=== PATIENT | female | born 1960 | race Caucasian/White ===

== ENCOUNTER 2024-05-25 13:10 | Outpatient (CLI) | payer MEDICARE, SELFPAY ==
--- NOTE | 2024-05-25 14:15 | NEURO_ITS ---
Impression: # Complains of numbness of left hand with nocturnal paresthesia. # Moderate left Carpal Tunnel Syndrome. # No ulnar neuropathy. # Mildly abnormal needle/EMG exam in left APB. Nerve Conduction Studies Anti Sensory Summary Table Stim Site NR Peak (ms) P-T Amp (?V) Site1 Site2 Delta-P (ms) Dist (cm) Elias (m/s) Left Median Anti Sensory (2-3nd Digit) Wrist 5.3 18.1 Wrist 2-3nd Digit 5.3 14.0 26 Wrist 5.6 12.5 Wrist 2-3nd Digit 5.3 14.0 26 Left Radial Anti Sensory (Base 1st Digit) Wrist 1.9 40.3 Wrist Base 1st Digit 1.9 0.0 Left Ulnar Anti Sensory (5th Digit) Wrist 2.6 55.6 Wrist 5th Digit 2.6 14.0 54 Motor Summary Table Stim Site NR Onset (ms) O-P Amp (mV) Site1 Site2 Delta-0 (ms) Dist (cm) Elias (m/s) Left Median Motor (Abd Poll Brev) Wrist 5.7 2.4 Elbow Wrist 4.8 27.0 56 Elbow 10.5 2.3 Left Ulnar Motor (Abd Dig Minimi) Wrist 2.6 5.9 A Elbow Wrist 5.2 29.0 56 A Elbow 7.8 4.6 F Wave Studies NR F-Lat (ms) L-R F-Lat (ms) Left Median (Mrkrs) (Abd Poll Brev) 28.69 Left Ulnar (Mrkrs) (Abd Dig Min) 29.16 EMG Side Muscle Nerve Root Ins Act Fibs Amp Dur Recrt Comment Left 1stDorInt Ulnar C8-T1 Nml Nml Nml Nml Nml Left Ext Indicis Radial (Post Int) C7-8 Nml Nml Nml Nml Nml Left Ext Digitorum Radial (Post Int) C7-8 Nml Nml Nml Nml Nml Left BrachioRad Radial C5-6 Nml Nml Nml Nml Nml Left PronatorTeres Median C6-7 Nml Nml Nml Nml Nml Left Abd Poll Brev Median C8-T1 Nml Nml Incr >12ms +2 Left ABD Dig Min Ulnar C8-T1 Nml Nml Nml Nml Nml MTDD
== END 2024-05-25 13:11 | disposition home or self-care (01) ==
LOC: ANHNEURO 13:12
PROVIDERS: PCP Nurse Practitioner Family; Visit Provider Physician Assistant Surgical
DX: G56.02 Carpal tunnel syndrome, left upper limb (principal); G56.22 Lesion of ulnar nerve, left upper limb
CPT/HCPCS: 95886; 95909

== ENCOUNTER 2025-05-19 15:25 | Outpatient (CLI) | payer MEDICARE, SELFPAY ==
--- NOTE | ~2025-05-19 | MM_ITS ---
EXAMINATION: MM screening oni BI w ed HISTORY: Screening mammogram TECHNIQUE: Craniocaudal and mediolateral oblique 3-D tomosynthesis images were obtained and synthetic 2-D images were generated. CAD analysis was submitted and interpreted. COMPARISON: No prior mammogram is available for comparison at this institution. BREAST PARENCHYMAL COMPOSITION:Dense: The breasts are heterogeneously dense, which may obscure small masses. FINDINGS: No suspicious mass, calcification, or architectural distortion are identified in either herlinda ast to suggest malignancy. There has been no suspicious interval change. IMPRESSION: No mammographic evidence of malignancy. Recommend routine screening mammography in one year. BI-RADS Category 1: Negative Reviewed, dictated and finalized at location .
--- OUTSIDE RECORDS SUMMARY | 2025-05-19 15:28 | XMS_ITS | Continuity of Care Document ---
Author Organization Located within [facility] Address [address] [place] [address] [place] [address] Phone Care Team Providers Care Nanny Babysitter Name Role Phone Cooper Burns Unavailable Unavailable Procedures Procedure Date Visual Field Examination(s) Eye Exam, New Patient Advance Directives Directive Yes / No Effective Date File Name No Information Encounters Encounter Description Practice Location Reason(s) For Visit Diagnoses Date Provider Providers Copied on Encounter [facility], [address] [place] [address] [address], [place], [place], [id number], tel:[phone] [facility] No Information 8 Katy Gamboa. [address] [place] [address], [facility], . tel:[phone] Referring Provider: Cooper lee, [address] [place] [address], [facility]. tel:[phone] [facility], [address] [place] [address] [address], [place], [place], [id number], tel:[phone] [facility] No Information 2200 8 Katy Cooper. [address] [place] [address], [facility], . tel:[phone] Family History Family Member Type Diagnosis Age At Onset No Information Payers Payer name Insurance type Covered democrat ID Authoriza tion(s) No Information Social History Type Description Quantity Date Captured Comments Sex Female Smoking Status No Information Chief Complaint And Reason For Visit No Information Reason For Referral Reason For Referral No Information History Of Present Illness Encounter Date Complaint History Of Prese nt Illness No Information Functional Status Date Functional Assessmen t No Information Instructions Date Instruction Additional Infor mation No Information Assessments Type Assessment Date No Information Patient Care Teams Name Effective Dates (start - stop) Status Members No Information
--- OUTSIDE RECORDS SUMMARY | 2025-05-19 15:28 | XMS_ITS | Clinical Summary ---
Author Organization [facility] Address [address] [place] [address] Care Team Providers Care Soldering Inspector Name Role Phone Rocio Doss MD Primary Care Provide r Allergies Active Allergy Reactions Criticality Noted Date Comments Erythromycin Ethylsuccinate Diarrhea Low 08/27/2021 Nsaids (Non-Steroidal Anti-Inflammatory Drug) Diarrhea,Other (See comments),Stomach upset Low Reaction: ABD CRAMPING, DIARRHEA, Sulfa (Sulfonamide Antibiotics) Diarrhea,Rash,Nause a only,Vomiting Medium 11/20/2010 Medications gabapentin (NEURONTIN) 300 mg capsule Take 2 capsules (600 mg total) by mouth 2 (two) times a day 5 8 Active potassium chloride ER (KLOR-CON) 10 mEq CR tabletIndicatio ns:hypokalemia prevention Take 1 tablet/capsule (10 mEq total) by mouth every morning Active metoprolol XL (TOPROL-XL) 100 mg 24 hr tabletIndicatio ns:coronary artery disease,hyperte nsion Take 1 tablet (100 mg total) by mouth 2 (two) times a day 3 8 Active ferrous sulfate 325 mg (65 mg of elemental iron) tablet Take 1 tablet (325 mg total) by mouth daily with breakfast 1 Active nitroglycerin (NITROSTAT) 0.4 mg SL tablet DISSOLVE 1 TABLET UNDER THE TONGUE EVERY 5 MINUTES FOR A TOTAL OF 3 DOSES NEEDED FOR CHEST PAIN. IF NO RELIEF AFTER THIRD DOSE GO TO ER 1 Active rosuvastatin (CRESTOR) 40 mg tabletIndicatio ns:hyperlipidem ia Take 1 tablet (40 mg total) by mouth nightly 0 Active multivit rsrdgrbd-httm-L A-calcium (THERA-M) 9 mg iron-400 mcg tabletIndicatio ns:Vitamin Deficiency Prevention Take 1 tablet by mouth daily 90 tablet 3 2 Active HYDROcodone-yenni taminophen (NORCO) 10-325 mg per tablet TAKE 1 TABLET BY MOUTH EVERY 4-6 HOURS FOR 30 DAYS 2 Active cyanocobalamin (Vitamin B-12) 1,000 mcg tablet Take 1 tablet (1,000 mcg total) by mouth daily 2 Active escitalopram (LEXAPRO) 20 mg tablet 2 Active Active Problems Problem Noted Date Diagnosed Date Gastric bypass status for obesity 07/18/2022 Fear of injections and transfusions 03/12/2022 Sacroiliitis, not elsewhere classified 2 Enthesopathy of ankle and tarsus 11/08/2021 Hyperglycemia 11/08/2021 Incontinence 11/08/2021 Primary localized osteoarthrosis of shoulder reg ion 11/08/2021 Radial styloid tenosynovitis 11/08/2021 Tachycardia 11/08/2021 Sicca syndrome 10/22/2021 HLA B27 (HLA B27 positive) 10/22/2021 Abnormal result of other cardiovascular function study 09/14/2021 Diabetes mellitus, type 2 08/27/2021 Iron deficiency 08/27/2021 Obstructive sleep apnea syndrome 08/27/2021 Palpitations 08/27/2021 Shortness of breath 08/27/2021 Vitamin D deficiency 08/27/2021 Chest discomfort 08/27/2021 Hypokalemia 08/27/2021 Rheumatoid arthritis 08/27/2021 Herpes simplex virus (HSV) infection 10/02/2017 Chronic neck pain 04/03/2017 Fibromyalgia 09/09/2014 Generalized osteoarthritis 09/08/2014 Spinal stenosis of cervical region 01/13/2014 High risk medication use 10/27/2012 Degeneration of intervertebral disc of cervical region 03/27/2012 Hyperlipidemia 11/20/2010 Hypertension 11/20/2010 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 We have given her prior trials of immunosuppressants in the form TNF inhibitor which gave her no benefit in terms of pain relief. I reviewed when she should hold methotrexate and the samaritan of fever or significant infection. She needs monitoring laboratory tests today of inflammatory markers, CBC and CMP. Osteoarthritis of knee 11/20/2010 Overview (03/12/2022): HLA B27 positive but only peripheral arthritis felt to have any inflammatory component Last Assessment & Plan: This patient has HLA B27 positivity but her spinal disease has been entirely degenerative in nature. We have given her prior trials of immunosuppressants in the form TNF inhibitor which gave her no benefit in terms of pain relief. I reviewed when she should hold methotrexate and the samaritan of fever or significant infection. She needs monitoring laboratory tests today of inflammatory markers, CBC and CMP. Resolved Problems Problem Noted Date Diagnosed Date Resolved Date Morbid (severe) obesity due to excess calories 04/16/2022 07/18/2022 Ankylosing spondylitis 08/27/202106/07 Morbid obesity (CMS/HCC) 02/21/202111/2021 Immunizations Immunization Administration Dates Next Due Influenza, Quadrivalent, Spl it, Preservative Free, Intramuscular 10/04/2021 Moderna SARS-CoV-2 Monovalent Vaccination (12+ Y RS) 02/08/2021 Surgical History Surgery Date Site/Laterality Comments CARPAL TUNNEL RELEASE Right TOTAL ABDOMINAL HYSTERECTOMY REDUCTION MAMMAPLASTY CHOLECYSTECTOMY APPENDECTOMY SPINAL FUSION TOTAL KNEE ARTHROPLASTY HAND SURGERY JOINT REPLACEMENT BREAST LUMPECTOMY GASTRIC BYPASS 04/16/2022 Medical History Medical History Date Comments Morbid obesity (HCC) Arthritis Depression Hypertension Sleep apnea Fibromyalgia, primary Incontinence PONV (postoperative nausea and vomiting) Motion sickness Covid 11/2021 Tachycardia CAD (coronary artery disease) Family History Medical History Relation Name Comments Coronary artery disease Father Rheum arthritis Father Heart attack Maternal Grandmother Heart disease Maternal Grandmother Hypertension Maternal Grandmother Pacemaker Maternal Grandmother Transient ischemic attack Maternal Grandmother Arthritis Mother Lupus Sister Relation Name Status Comments Father Maternal Grandmother Mother Sister Social History Tobacco Use Types Packs/Day Years Used Date Smoking Tobacco: Never Smokeless Tobacco: Never AUDIT-C Answer Date Recorded Q1: How often do you have a drink containing alcohol? Never 08/11/2023 Q2: How many drinks containi ng alcohol do you have on a typical day when you are drinking? Patient does not drink Q3: How often do you have si x or more drinks on one occasion? Never 08/11/2023 Comments No Sex and Gender Information Value Date Recorded Sex Assigned at Not on file Legal Sex Female 7:34 PM SAL[employer] [place] Gender Identity Female 07/02/2018 3:58 PM CDT Sexual Orientation Straight 02/19/2021 7: 51 AM CDT Obstetrics History Last Filed Vital Signs Vital Sign Reading Time Taken Comments Blood Pressure 160/78 08/11/2023 12:05 PM CDT Pulse 53 08/11/2023 12:05 PM CDT Temperature 36.7 C (98.1 F) 08/11/2023 12:05 PM CDT Respiratory Rate 18 08/11/2023 12:05 PM CDT Oxygen Saturation 99% 08/11/2023 12:05 PM CDT Inhaled Oxygen Concentration - - Weight 59.1 kg (130 lb 6.4 oz) 08/11/2023 12:05 PM CDT Height 153 cm (5' 0.24) 08/11/2023 12:05 PM CDT Body Mass Index 25.27 08/11/2023 12:05 PM CDT Plan of Treatment Health Maintenance Due Date Last Done Comments Albumin Creatinine Ratio, Urine 1961 Breast Cancer Screening-Mammogram 1961 Colon Cancer Screening-Colonoscopy 1961 Depression Screening 1961 Dilated Eye Exam 1961 Foot Exam 1961 DTaP/Tdap/Td Vaccine (1 - Tdap) 01/17/1972 Hepatitis B Screening 1979 Regular Well Visit/Exam 18-64 1979 Zoster Vaccine (1 of 2) 2011 Pneumococcal vaccine <65 (2 of 2 - PCV) 08/27/2020 08/27/2019 Hemoglobin A1C 11/08/2023 05/09/2023, 12/0 04/2021, 07/28/2017 Lipid Panel 05/09/2024 05/09/2023, 12/0 04/2021, 08/25/2017 Covid-19 Vaccine (4 - 2023-2 5 season) 2024 11/22/2021, 03/13/2021, 02/08/2021 eGFR 02/18/2025 02/19/2024, 08/0 06/2023, 05/09/2023, Additional history exists Influenza Vaccine (Season Ended) 2025 09/26/2022, 10/04/2021, 08/27/2019, Additional history exists Hepatitis C Screening Completed 02/19/2024, 013 Procedures Procedure Name Priority Date/Time Associated Diagnosis Comments HEPATITIS PANEL, ACUTE Routine 02/19/2024 10:25 AM CDT EGFR Routine 02/19/2024 10:25 AM CDT HEMOGLOBIN A1C Routine 05/09/2023 2:55 PM CDT Intestinal malabsorption, unspecified type Abnormal finding of blood chemistry, unspecified LIPID PANEL Routine 05/09/2023 2:55 PM CDT Intestinal malabsorption, unspecified type from Last 3 Months or Most Recently Relevant to Health Maintenance Results * eGFR (02/19/2024 10:25 AM CDT) eGFR >90 >=60 mL/min/1. 73 m2 Comment: Interpretive Data Reference Interval Normal >/= 90 mL/min/1.73m2 Mildly decreased* 60 - 89 mL/min/1.73m2 Mildly to moderately decreased 45 - 59 mL/min/1.73m2 Moderately to severely decreased 30 - 44 mL/min/1.73m2 Severely decreased 15 - 29 mL/min/1.73m2 Kidney Failure < 15 mL/min/1.73m2 *Relative to young adult level Estimated glomerular filtration rate is determined by the 2020 CKD-EPI equation recommended by the National Kidney Foundation (A Unifying Approach to GFR Estimation: Recommendations of the NKF-ASK Task Force on Reassessing the Inclusion of Race in Diagnosing Kidney Disease, JASN 2020). The CKD-EPI equation should not be used for patients with unstable renal function and has not been validated in children and those over 70. Current interpretive data was last reviewed 2021. Blood 02/19/2024 10:2 5 AM CDT 02/19/2024 10:49 AM CDT Duyen Ackerman NP LAB BLOOD ORDERABLES Final R esult [facility] [address] Department of Laboratories [place] [address] * Hepatitis panel, acute Blood (02/19/2024 10:25 AM CDT) Hep A IgM Nonreactive Nonreactive Comment: Interpretive Data: If Hep A IgM Ab is reported as Equivocal, a new sample should be drawn in two weeks for testing. Current interpretive data was last revised on 20. Hep B core IgM Nonreactive Nonreactive [facility] Comment: Interpretive Data If HepB Core IgM Ab is reported as Equivocal, a new sample should be drawn in two weeks for testing. Current interpretive data was last revised on 20. Hep C Ab Nonreactive Nonreactive [facility] Comment: Interpretive Data Nonreactive: Antibodies to HCV not detected. Does NOT exclude the possibility of recent exposure to HCV. Equivocal: Equivocal for HCV antibodies. Supplemental molecular testing will be automatically performed to determine infection status in accordance with current CDC screening recommendations. Reactive: Positive for HCV antibodies. This may represent current or past HCV infection. Supplemental molecular testing will be automatically performed to determine current infection status in accordance with current CDC screening recommendations. Interpretive data was last revised on 2020. HepBsAg Nonreactive Nonreactive [facility] Blood 02/19/2024 10:2 5 AM CDT 02/19/2024 11:26 AM CDT us Duyen Tyron SANDSTONE INSPECTOR REPAIRER LAB MICROBIOLOGY - GENERAL O RDERABLES Final Result Performing Organization Address [facility] Co de Phone Number [facility] [address] Department of [place] [address] * Hemoglobin A1c (05/09/2023 2:55 PM CDT) Hgb A1C 5.4 4.0 - 5.6 % ESTELA [facility]K Estimated Average Glucose 108 mg/dL ESTEL[facility] B[facility]K Comment: The ADA recommends reporting an estimated Average Glucose (eAG) with all Hemoglobin A1c results using the equation derived from a study of 507 normal and diabetic adults. Minority populations were underrepresented and children were not included. (Diabetes Care 31:2301-8977, 2008). The eAG is not equivalent to a fasting glucose. Blood 05/09/2023 2:55 PM CDT 05/09/2023 2:56 PM CDT Sabina Bejarano MD LAB BLOOD ORDERABLES Fi nal Result Performing Organization Address [facility] Co de Phone Number [facility] [address] Department of [place] [address] * (ABNORMAL) Lipid panel (05/09/2023 2:55 PM CDT) Pathologist [facility] Cholesterol 82 30 - 199 mg/dL ESTELA BECK Comment: Aure Norwood RN Interpretive Data Ages < or = 19 years Acceptable: <170 mg/dL Borderline high: 170-199 mg/dL High: >or= 200 mg/dL Ages > or = 20 years Desirable: <200 mg/dL Borderline high: 200-239 mg/dL High: >or= 240 mg/dL Literature References: 1. Expert Panel on Integrated Guidelines for Cardiovascular Health and Risk Reduction in Children and Adolescents. Pediatrics 2011;128:S213 2. NCEP Expert Panel. Circulation 2004;110:227 Current Interpretive Data was last revised on 2018. Triglycerides 46 <=149 mg/dL ESTEL[facility]K Comment: Aure Norwood RN Interpretive Data Ages < or = 9 years Acceptable: <75 mg/dL Borderline high: 75-99 mg/dL High: >or= 100 mg/dL Ages 10 to 20 years Acceptable: <90 mg/dL Borderline high: 90-129 mg/dL High: >or= 130 mg/dL Ages > or = 20 years Desirable: <150 mg/dL Borderline high: 150-199 mg/dL High: 200-499 mg/dL Very high: >or= 499 mg/dL Literature References: 1. Expert Panel on Integrated Guidelines for Cardiovascular Health and Risk Reduction in Children and Adolescents. Pediatrics 2011;128:S213 2. NCEP Expert Panel. Circulation 2004;110:227 Current Interpretive Data was last revised on 2018. HDL 36(L) >=40 mg/dL ESTELA BECK Comment: Aure Norwood RN Interpretive Data Ages < or = 19 years Acceptable: >45 mg/dL Borderline low: 40-45 mg/dL Low: <40 mg/dL Ages > or = 20 years Desirable: >or= 60 mg/dL Low: <40 mg/dL Literature References: 1. Expert Panel on Integrated Guidelines for Cardiovascular Health and Risk Reduction in Children and Adolescents. Pediatrics 2011;128:S213 2. NCEP Expert Panel. Circulation 2004;110:227 Current Interpretive Data was last revised on 2018. LDL, calculated 37 <=129 mg/dL ESTELA BECK Comment: Interpretive Data Ages < or = 19 years Acceptable: <110 mg/dL Borderline high: 110-129 mg/dL High: >or= 130 mg/dL Ages > or = 20 years Optimal: <100 mg/dL Near optimal: 100-129 mg/dL Borderline high: 130-159 mg/dL High: >160 mg/dL Literature References: 1. Expert Panel on Integrated Guidelines for Cardiovascular Health and Risk Reduction in Children and Adolescents. Pediatrics 2011;128:S213 2. NCEP Expert Panel. Circulation 2004;110:227 Current Interpretive Data was last revised on 2018. Non-HDL Cholesterol 46 mg/dL ESTELA BECK Comment: Interpretive Data Ages < or = 19 years Acceptable: <120 mg/dL Borderline high: 120-144 mg/dL High: >145 mg/dL Ages > or = 20 years When triglycerides are >200 mg/dL, Non-HDL cholesterol is a secondary target of therapy with treatment goals that are 30 mg/dL greater than the LDL cholesterol target. Literature References: 1. Expert Panel on Integrated Guidelines for Cardiovascular Health and Risk Reduction in Children and Adolescents. Pediatrics 2011;128:S213 2. NCEP Expert Panel. Circulation 2004;110:227 Current Interpretive Data was last revised on 2018. Chol/HDL ratio 2 [facility] Blood 05/09/2023 2:55 PM CDT 05/09/2023 2:56 PM CDT Sabina Bejarano MD LAB BLOOD ORDERABLES Ed ited Result - Final ESTELA ALEJANDROWCH [address] [facility]. Department of [place] [address] from Last 3 Months or Most Recently Relevant to Health Maintenance Insurance [facility] RE[facility] MEDICARE ADVANTAGE [facility] AD[facility] Advance Directives For more information, please contact: [phone] * Full Code (Latest Code Status on File) Date Activated Date Inactivated Comments 04/16/2022 3:11 PM 04/18/2022 3:54 PM Care Teams Soldering Inspector Relationship Specialty Start Date End Date Rocio Doss MD [address] [place] [address] PCP - General Internal Medicine 02/11/24
--- OUTSIDE RECORDS SUMMARY | 2025-05-19 15:28 | XMS_ITS | Clinical Summary ---
Author Organization [facility] Address [facility] [id number] [phone] Phone Care Team Providers Care Direct Support Worker Name Role Phone Unavailable Primary Care Provider Unavailabl e Encounters Date Type Department Care Team Description 04/06/2025 External Device Data [facility] ABSTRACTION Provider, Abstract 04/05/2025 External Device Data [facility] ABSTRACTION Provider, Abstract from Last 3 Months Social History Tobacco Use Types Packs/Day Years Used Date Smoking Tobacco: Never Assessed Comments Unknown Sex and Gender Information Value Date Recorded Sex Assigned at Not on file Legal Sex Female 10:19 PM CDT Gender Identity Not on file Sexual Orientation Not on file Plan of Treatment Health Maintenance Due Date Last Done Comments DIABETES ANNUAL FOOT EXAM 1979 DIABETES ANNUAL RETINAL EXAM 1979 DIABETES MICROALBUMIN ANNUAL SCREEN 1979 LDL CHOLESTEROL ANNUAL 1979 DTAP/TDAP/TD VACCINES (1 - Tdap) 01/17/1980 BREAST CANCER SCREENING 2001 COLORECTAL SCREENING 2006 Colorectal Cancer Screening 2006 FIT-DNA Q 3 years 2006 FIT/FOBT Q 1 year 2006 Flex Sig/CT Colonography Q 5 years 2006 RSV VACCINE (60+ or ) (1 - Risk 60-74 years 1-dose series) 2021 COVID-19 Vaccine (5 - 2023-2 5 season) 2024 10/14/2022, 11/22/2021, 03/13/2021, Additional history exists INFLUENZA VACCINE (#1) 2025 , 10/15/2023, 09/26/2022, Additional history exists DIABETES HBA1C Q 6 MONTHS 09/19/2025 03/19/2025, ZOSTER VACCINE Completed 10/07/2024, 06/19/2024 Insurance [facility] [id number] [address] [id number]
--- OUTSIDE RECORDS SUMMARY | 2025-05-19 15:28 | XMS_ITS | Clinical Summary ---
Author Organization [facility] Address [address] [place] [address] Care Team Providers Care Water Project Manager Name Role Phone Unavailable Primary Care Provider Unavailabl e Social History Tobacco Use Types Packs/Day Years Used Date Smoking Tobacco: Never Comments Unknown Sex and Gender Information Value Date Recorded Sex Assigned at Not on file Legal Sex Female 6:12 PM CDT Gender Identity Not on file Sexual Orientation Not on file Last Filed Vital Signs Vital Sign Reading Time Taken Comments Blood Pressure 136/80 06/21/2014 11:24 AM CDT Pulse 95 06/21/2014 11:24 AM CDT Temperature - - Respiratory Rate 20 06/21/2014 11:24 AM CDT Oxygen Saturation - - Inhaled Oxygen Concentration - - Weight 98.4 kg (217 lb) 06/21/2014 11:24 AM CDT Height 154.9 cm (5' 1) 06/21/2014 11:24 AM CDT Body Mass Index 41 06/21/2014 11:24 AM CDT Plan of Treatment Health Maintenance Due Date Last Done Comments Cervical Cancer Screening Pap Smear (Age 30 to 64) Every 3 Years 1961 Colorectal Cancer Screening Colonoscopy (10 Years) 1961 Annual Physical 01/17/1964 Hepatitis C 1979 DTaP, Tdap and Td Vaccines (1 - Tdap) 01/17/1980 Cervical Cancer Screening Pap with HPV Testing (Age 30 to 64) Every 5 Years 1991 Cervical Cancer Screening with HPV 1991 Mammogram Screening 2001 Pneumococcal Vaccine: 50+ Years (2 of 2 - PCV) 08/27/2020 08/27/2019 COVID-19 Vaccine ( season) 2024 10/14/2022, 11/22/2021, 03/13/2021, Additional history exists Zoster Vaccines (2 of 2) 08/14/2024 06/19/2024 RSV Immunization or 60+ Years Completed 06/19/2024 Meningococcal B Vaccine Aged Out No l onger eligible based on patient's age to complete this topic Meningococcal Vaccine Aged Out No caryl becca eligible based on patient's age to complete this topic RSV Immunizations Under 20 Months Aged Out No longer eligible based on patient's age to complete this topic
--- OUTSIDE RECORDS SUMMARY | 2025-05-19 15:28 | XMS_ITS | Referral Summary ---
Author Organization [facility] Address [address] [place] [address] Care Team Providers Care Ultrasound Applications Specialist Name Role Phone Rocio Doss MD Primary [...] total) by mouth nightly 0 Active multivit qqdgelct-mfbd-O A-calcium (THERA-M) 9 mg iron-400 mcg tabletIndicatio [...] when she should hold methotrexate and the caodaism of fever or significant infection. She needs [...] when she should hold methotrexate and the caodaism of fever or significant infection. She needs monitoring laboratory tests today of inflammatory markers, CBC and CMP. Resolved Problems Problem Noted Date Diagnosed Date Resolved Date Morbid (severe) obesity due to excess calories 04/16/2022 07/18/2022 Ankylosing spondylitis 08/27/202106/07 Morbid obesity (CMS/[facility]) 02/21/202111/2021 Immunizations Immunization Administration Dates Next Due Influenza, Quadrivalent, Spl it, Preservative Free, Intramuscular 10/04/2021 Moderna SARS-CoV-2 Monovalent Vaccination (12+ Y RS) 02/08/2021 Social History Tobacco Use Types Packs/Day Years [...] on file Legal Sex Female 7:34 PM INS[employer]ANCE [employer]OUNT [employer] Gender Identity Female 07/02/2018 3:58 PM CDT Sexual Orientation Straight 02/19/2021 7: 51 AM CDT Last Filed Vital Signs Vital Sign Reading [...] 08/11/2023 12:05 PM CDT Plan of Treatment Not on file Procedures Procedure Name Priority Date/Time Associated Diagnosis [...] 5 AM CDT 02/19/2024 10:49 AM CDT us Duyen Ackerman NP LAB BLOOD ORDERABLES Final R esult [facility] [address] [place] [address] * Hepatitis panel, acute Blood (02/19/2024 10:25 AM CDT) Hep A IgM Nonreactive Nonreactive Comment: Interpretive Data: If Hep A IgM Ab is reported as Equivocal, a new sample should be drawn in two weeks for testing. Current interpretive data was last revised on 20. Hep B core IgM Nonreactive Nonreactive [facility] Comment: Interpretive Data If HepB Core IgM Ab is reported as Equivocal, a new sample should be drawn in two weeks for testing. Current interpretive data was last revised on 20. Hep C Ab Nonreactive Nonreactive [facility] Comment: Interpretive Data Nonreactive: Antibodies [...] last revised on 2020. HepBsAg Nonreactive Nonreactive [facility] Blood 02/19/2024 10:2 5 AM CDT 02/19/2024 11:26 AM CDT us Duyen Ackerman NP LAB MICROBIOLOGY - GENERAL O RDERABLES Final Result Performing Organization Address [facility] Co de Phone Number [facility] [address] Department [place] [address] * Hemoglobin A1c (05/09/2023 2:55 PM CDT) Hgb A1C 5.4 4.0 - 5.6 % [facility] Estimated Average Glucose 108 mg/dL [facility] Comment: The ADA recommends reporting an estimated Average Glucose (eAG) with all Hemoglobin A1c results using the equation derived from a study of 507 normal and diabetic adults. Minority populations were underrepresented and children were not included. (Diabetes Care 31:7694-7611, 2008). The eAG is not equivalent to a fasting glucose. Blood 05/09/2023 2:55 PM CDT 05/09/2023 2:56 PM CDT us Sabina Bejarano MD LAB BLOOD ORDERABLES Fi nal Result Performing Organization Address City/[facility] Co de Phone Number [facility] [address] [facility] [place] [address] * (ABNORMAL) Lipid panel (05/09/2023 2:55 PM CDT) Cholesterol 82 30 - 199 mg/dL ESTELA [...] revised on 2018. Chol/HDL ratio 2 [facility]OLES[facility] Blood 05/09/2023 2:55 PM CDT 05/09/2023 2:56 PM CDT Sabina Bejarano MD LAB BLOOD ORDERABLES Ed ited Result - Final [facility] [id number] [facility]. Department [place] [address] from Last 3 Months or Most Recently Relevant to Health Maintenance Insurance [facility] HMO [facility] [employer] [place] [employer] Address: [address] [address] [place] [address] MEDICARE [employer] [place] [employer] Address: [address] [place] [phone] MEDICARE [employer] [place] [employer] Address: [address] [address] [place] [address] Advance Directives For more information, please contact: [phone] * Full Code (Latest Code Status on File) Date Activated Date Inactivated Comments 04/16/2022 3:11 PM 04/18/2022 3:54 PM Care Teams Ultrasound Applications Specialist Relationship Specialty Start Date End Date Rocio Doss MD [address] [address] PCP - General Internal Medicine 02/11/24
--- OUTSIDE RECORDS SUMMARY | 2025-05-19 15:28 | XMS_ITS | Clinical Summary ---
Author Organization [facility] Address [address] [place] [address] Care Team Providers Care Resource Technician Name Role Phone Jhonathan Doss MD Primary Care Provider Source Comments [facility],non-owned Affiliates and Associated Physician Practices is amultiple site organization consisting of ambulatory clinics and hospital sitesin [place], [place], [place] and [place]. This disclosure is being madepursuant to the Care Everywhere program and may not contain all information available regarding this patient. Last updated 18.[facility] Allergies Active Allergy Reactions Criticality Noted Date Comments Erythromycin Diarrhea,Unknown Low 08/27/2021 Nsaids Diarrhea,GI Discomfort,Other Medium 05/07/2024 Reaction: ABD CRAMPING, DIARRHEA, Sulfa Drugs Diarrhea,Itching,Charles sea and/or Vomiting,Rash,Vomiting Medium 11/20/2010 Sulfacetamide Unknown Low 08/27/2021 Medications * This document contains information received from the source organization and may not represent a complete record from that organization. * Be aware that medications may not be up to date on this document. Alwaysverify current medications with the patient. CPAP Use as directed Acti ve gabapentin (Neurontin) 300 MG capsule Take 2 (two) capsules by mouth 3 times daily Active levothyroxine (Synthroid) 75 MCG tablet Take 1 (one) tablet by mouth daily before breakfast Active olmesartan-hydr oCHLOROthiazide (Benicar HCT) 20-12.5 MG tablet Take 1 (one) tablet by mouth once daily 4 Active oxyCODONE, immediate release, (Roxicodone) 10 MG tablet Take 1 (one) tablet by mouth every 6 hours as needed for Pain 4 Active potassium chloride ER (Micro-K) 10 MEQ capsule Take 1 (one) capsule by mouth once daily 3 Active escitalopram (Lexapro) 20 MG tablet Take 1 (one) tablet by mouth once daily Active metoprolol succinate XL 24hr (Toprol XL) 100 MG tablet Take 1 (one) tablet by mouth 2 times daily 3 Active ezetimibe (Zetia) 10 MG tablet Take 1 (one) tablet by mouth once daily Active rosuvastatin (Crestor) 40 MG tablet Take 1 (one) tablet by mouth at bedtime Active meloxicam (Mobic) 7.5 MG tablet TAKE 1 TABLET BY MOUTH DAILY 30 tablet 2 5 Active aspirin (Aspirin) 81 MG chew tablet Take 1 (one) tablet by mouth once daily (chew and swallow) 5 Active ferrous sulfate 325 (65 FE) MG tablet Take 1 (one) tablet by mouth every 2 days 5 Active apixaban (Eliquis) 2.5 MG tablet Take 1 (one) tablet by mouth 2 times daily for 35 days 5 Active triamcinolone acetonide (Kenalog-10) injection Use 1 mL as instructed as directed 5 Active Bempedoic Acid-Ezetimibe (Nexlizet) 180-10 MG TABS Take 1 tablet by mouth as directed 4 Active Active Problems Problem Noted Date Diagnosed Date Degeneration of cervical intervertebral disc 07/2025 Degeneration of lumbar intervertebral disc 03/25 Lumbosacral spondylosis without myelopathy 03/25 Coronary artery disease with stable angina pecto ris 03/20/2025 Assessment & Plan (03/20/2025 9:47 AM CDT): - pt was not on ASA because of her previous GI symptoms. Discussed with pt and resumed ASA. Need to cont beta-pratik and ARB. She developed LFT elevation on statin, and currently on Zetia. HTN (hypertension) 03/20/2025 Assessment & Plan (03/20/2025 9:47 AM CDT): - will cont beta-pratik, ARB and HCTZ. Fall, initial encounter 03/19/2025 Assessment & Plan (03/20/2025 9:47 AM CDT): - denied LOC and just lost her balance per pt. Need PT/OT. Left hip pain 03/19/2025 Assessment & Plan (03/20/2025 9:47 AM CDT): - will cont pain management. Closed fracture of neck of left femur, initial e ncounter 03/19/2025 Assessment & Plan (03/20/2025 9:47 AM CDT): - appreciate ortho team's input and pt is going to OR today. Will await further input from them. 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 Lesion of nose 11/02/2023 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 11/02/2023 Carpal tunnel syndrome of left wrist 11/02/2023 Eczema 07/15/2023 Deformity of sternum 07/07/2023 Chronic sinusitis 02/17/2023 Arthralgia of both knees 02/17/2023 Memory impairment 02/09/2023 Morbid obesity 02/09/2023 Pain in joint of right shoulder 02/09/2023 Chronic pain disorder 02/09/2023 Obstructive sleep apnea of adult 02/09/2023 Intermittent palpitations 02/09/2023 Generalized anxiety disorder 02/09/2023 Cobalamin deficiency 02/09/2023 Chronic thoracic back pain 02/09/2023 Blood in urine 02/09/2023 Influenza due to influenza A virus 10/23/2022 Deviated nasal septum 10/15/2022 Fatigue 09/04/2022 Gastric bypass status for obesity 07/18/2022 Iron deficiency anemia 07/17/2022 Leukocytosis 06/03/2022 Elevated liver enzymes 06/03/2022 Elevation of levels of liver transaminase levels 06/03/2022 Type 2 diabetes mellitus without complication Anemia 03/05/2022 Tachycardia 11/08/2021 Cervical radiculopathy 11/08/2021 Lumbar radiculopathy 11/08/2021 Lumbosacral radiculopathy 11/08/2021 Radial styloid tenosynovitis 11/08/2021 Localized, primary osteoarthritis of shoulder re gion 11/08/2021 Incontinence 11/08/2021 Hyperglycemia 11/08/2021 Degeneration of lumbosacral intervertebral disc 11/08/2021 Enthesopathy of ankle and tarsus 11/08/2021 Primary localized osteoarthrosis of shoulder reg ion 11/08/2021 Sicca syndrome 10/22/2021 HLA B27 (HLA B27 positive) 10/22/2021 Abnormal result of other cardiovascular function study 09/14/2021 Vitamin D deficiency 08/27/2021 Rheumatoid arthritis 08/27/2021 Palpitations 08/27/2021 Obstructive sleep apnea syndrome 08/27/2021 Iron deficiency 08/27/2021 Hypokalemia 08/27/2021 Essential (primary) hypertension 08/27/2021 Ankylosing spondylitis 08/27/2021 Herpes simplex virus (HSV) infection 10/02/2017 Hypertensive disorder 06/16/2017 Sleep apnea 06/16/2017 Fibromyalgia 09/09/2014 Generalized osteoarthritis 09/08/2014 Spinal stenosis of cervical region 01/13/2014 High risk medication use 10/27/2012 Degeneration of intervertebral disc of cervical region 03/27/2012 Osteoarthritis of knee 11/20/2010 Overview (11/08/2021): HLA B27 positive but only peripheral arthritis [...] when she should hold methotrexate and the jew of fever or significant infection. She needs monitoring laboratory tests today of inflammatory markers, CBC and CMP. 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 Closed fracture of neck of left femur with routine healing, subsequent encounter (Primary Dx); Closed nondisplaced fracture of left calcaneus with routine healing, unspecified portion of calcaneus, subsequent encounter 05/05/2025 8:52 AM CDT - 05/05/2025 11:59 PM CDT Hospital Encounter [facility] DIAGNOSTIC RAD [facility] [address] [place] [address] Raquel Lozoya MD Discharge Disposition: Home or Self Care 05/05/2025 8:52 AM CDT - 05/05/2025 11:59 PM CDT Hospital Encounter [facility] DIAGNOSTIC RAD [facility] [address] [place] [address] Raquel Lozoya MD Discharge Disposition: Home or Self Care 05/05/2025 Travel 05/04/2025 Orders Only [facility] [address] [place] [phone] Raquel Lozoya MD Closed fracture of neck of left femur, initial encounter (HCC) ; Closed nondisplaced fracture of left calcaneus, unspecified portion of calcaneus, initial encounter 04/08/2025 8:45 AM CDT Office Visit [facility] - Orthopedics [address] [place] [phone] Julius Henriquez, Pain of left hip (Primary Dx); Fall, initial encounter; Closed fracture of neck of left femur, initial encounter ([facility]) 04/08/2025 Telephone [facility] - Orthopedics [address] [place] [phone] Julius Henriquez, Returned Call 04/08/2025 Travel 03/29/2025 Travel 03/20/2025 6:20 PM CDT Anesthesia Event [facility] [address] [place] [phone] Leandro Arango MD McCrary, Amanda N, MD 03/20/2025 4:15 PM CDT - 03/20/2025 7:29 PM CDT Surgery [facility] [address] [place] [phone] Julius Henriquez, INTRAMEDULLARY LEFT NAILING FEMUR 03/19/2025 1:33 AM CDT - 03/23/2025 10:52 PM CDT Hospital Encounter [facility] SHORT STAY UNIT [address] [place] [phone] Barbara Washington MD Gandhi, Avi, MD Bisesi, Dominic R, DO Ishiyama, Takaaki, MD Fritz, Adam, MD Fernelius, Joshua, MD Internal Medicine Discharge Disposition: Rehab:Inpatient 03/19/2025 Travel from Last 3 Months Immunizations Immunization Administration Dates Next Due FLU VACCINE QUAD IIV4 SPLIT 0.25 ML IM 08/28/2020 INFLUENZA VACCINE 09/17/2016 INFLUENZA VACCINE, QUADR. (F LUZONE; FLULAVAL; FLUARIX; AFLURIA QUADRIVALENT; 6MO+), 0.5 ML (IIV4) 10/15/2023,09/26/2022,10/04/2021,2018,08/28/2018,09/26/2016 INFLUENZA VACCINE, RECOM-LOPEZ, TRIV. (FLUBLOCK TRIVALENT; 18Y+) (RIV3) 06/19/2024 PNEUMOCOCCAL PPSV23 08/27/2019 RSV AREXVY 60YR+ 0.5ML 06/19/2024 Zoster Hzv Vacc Recombinant Inj Im 10/07/2024, Family History Medical History Relation Name Comments CAD (Coronary Artery Disease) Maternal Grandmother CAD (Coronary Artery Disease) Mother Cancer - Other Mother Relation Name Status Comments Maternal Grandmother Mother Social History Tobacco Use Types Packs/Day Years Used Date Smoking Tobacco: Never Smokeless Tobacco: Never Tobacco Cessation:Counseling Given: Not Answered AUDIT-C Answer Date Recorded Q1: How often do you have a drink containing alc ohol? Monthly or less 03/19/2025 Q2: How many drinks containi ng alcohol do you have on a typical day when you are drinking? 1 or 2 03/19/2025 Q3: How often do you have si x or more drinks on one occasion? Never 03/19/2025 Overall Financial Resource Strain (CARDIA) Answe r Date Recorded How hard is it for you to pa y for the very basics like food, housing, medical care, and heating? Not hard at all 03/19/2025 PHQ-2 Answer Date Recorded Patient Health Questionnaire-2 Score 4 05/02/2025 [facility] [place] [facility] Occupat ional Health - Occupational Stress Questionnaire Answer Date Recorded Do you feel stress - tense, restless, nervous, or anxious, or unable to sleep at night because your mind is troubled all the time - these days? Only a little 03/19/2025 Hunger Vital Sign Answer Date Recorded Within the past 12 months, y ou worried that your food would run out before you got the money to buy more. Never true 03/19/20 25 Within the past 12 months, t he food you bought just didn't last and you didn't have money to get more. Never true 03/19/2025 PRAPARE - Transportation Answer Date Re corded In the past 12 months, has l ack of transportation kept you from medical appointments or from getting medications? No 01/2025 In the past 12 months, has l ack of transportation kept you from meetings, work, or from getting things needed for daily living? No 03/19/2025 Housing Stability Vital Sign Answer Heriberto e Recorded In the last 12 months, was t here a time when you were not able to pay the mortgage or rent on time? No 03/19/2025 In the past 12 months, how m any times have you moved where you were living? 0 03/19/2025 At any time in the past 12 m [facility], were you homeless or living in a care home (including now)? 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 Gender Identity Female 05/27/2024 8:54 PM CDT Sexual Orientation Not on file Last Filed Vital Signs Vital Sign Reading Time Taken Comments Blood Pressure 107/52 03/23/2025 8:33 PM CDT Pulse 80 03/23/2025 8:33 PM CDT Temperature 37.2 C (99 F) 03/23/2025 8:33 PM CDT Respiratory Rate 18 03/23/2025 8:33 PM CDT Oxygen Saturation 100% 03/23/2025 8:33 PM CDT Inhaled Oxygen Concentration - - Weight 65.3 kg (144 lb) 05/05/2025 9:33 AM CDT Height 152.4 cm (5') 05/05/2025 9:33 AM CDT Body Mass Index 28.12 05/05/2025 9:33 AM CDT Plan of Treatment Upcoming Encounters Date Type Department Care Team (Late st Contact Info) Description 06/23/2025 9:30 AM CDT Office Visit [facility] - Orthopedics [address] [place] [address], [place] [phone] Raquel Lozoya MD [address] [place] [address] OF ORTHOPEDIC SURGERY [place], [place] [phone] 08/10/2025 8:30 AM CDT Office Visit [facility] - Rheumatology [address] [facility], [place] [phone] Talisha Elise MD [address] [facility] [place] [address] Health Maintenance Due Date Last Done Comments COLOGUARD (AGES 45-75) - COLON CA SCREENING 1961 COLON MONITORING 1961 COLONOSCOPY - COLON CA SCREENING 1961 CT COLONOGRAPHY - COLON CA SCREENING 1961 Colorectal Cancer Screening 1961 FIT - COLON CA SCREENING 1961 FLEX SIG - COLON CA SCREENING 1961 MAMMOGRAM 1961 HIV SCREENING 01/17/1976 HEPATITIS C SCREENING 01/12/1979 DTAP/TDAP/TD VACCINES (1 - Tdap) 01/17/1980 PAP SMEAR 1982 PNEUMOCOCCAL VACCINE 50+ (2 of 2 - PCV) 08/27/2020 08/27/2019 DIABETES RETINOPATHY SCREENING 05/07/2024 DIABETES-FOOT EXAM WITH MONOFILAMENT 05/07/2024 COVID-19 VACCINE ( season) 2024 10/14/2022, 11/22/2021, 03/13/2021, Additional history exists DEPRESSION SCREENING 11/17/2024 06/03/2024 DIABETES - URINE PROTEIN SCREENING 11/17/2024 MEDICARE AWV CALENDAR YEAR 2024 INFLUENZA VACCINE (#1) 2025 , 10/15/2023, 09/26/2022, Additional history exists DIABETES-HGB A1C 09/19/2025 03/19/2025, , 10/22/2021 DIABETES-SERUM CREATININE 03/23/20262024, 03/22/2025, 03/21/2025, Additional history exists Respiratory Syncytial Virus (RSV) Vaccine Pt: or over 60 yrs Completed 06/19/2024 ZOSTER VACCINE Completed 10/07/2024, 06/19/2024 HEPATITIS B VACCINE Aged Out No longe r eligible based on patient's age to complete this topic HIB VACCINE Aged Out No longer eligi ble based on patient's age to complete this topic HPV VACCINE Aged Out No longer eligi ble based on patient's age to complete this topic MENINGOCOCCAL (Group B) VACCINE SHARED DECISION-MAKING Aged Out No longer eligible based on patient's age to complete this topic MENINGOCOCCAL GROUPS A/C/Y/W VACCINE Aged Out No longer eligible based on patient's age to complete this topic Goals Goal Patient Goal Type Associated Problems Recent Progress Patient-Stated? Author Mobility General No Rama Ackerman Note: Expected end date: WB WITH A WALKER The goal is to maintain or improve your mobility at the optimum level for you. Interventions: Perform independent activity per your ability Medical Devices Implanted Type Area Floor Assembler Device Identifier Shelf Expiration Date Model / Serial / Lot Nail Im 10mm 170mm Tfn-Adv Lat Rlf Cut Implanted:Qty: 1 on 03/20/2025 by Julius Henriquez, DO at [facility] Left: Femur Synthes [facility] 11/16/2034 [id number] S / / [id number] Tfn - Advanced Screw, 90mm Implanted:Qty: 1 on 03/20/2025 by Julius Henriquez, DO at [facility] Left: Femur [employer] Tra[employer] 04.038.190 / [id number] / .038.190 Screw 5mm 38mm Lck Ti Niobium Al Im Nail Implanted:Qty: 1 on 03/20/2025 by Julius Henriquez, DO at [facility] Left: Femur [employer] 04.045.038 / / Guide Wire Implanted:Qty: 2 on 03/20/2025 by Julius Henriquez DO at [facility] Left: Femur [employer] Trauma [id number] / [id number] / [id number] Procedures Procedure Name Priority Date/Time Associated Diagnosis Comments XR CALCANEUS LEFT 2VW OR MORE Routine 05/05/2025 9:16 AM CDT Closed nondisplaced fracture of left calcaneus, unspecified portion of calcaneus, initial encounter XR HIP LEFT 2VW OR MORE Routine 05/05/2025 9:16 AM CDT Closed fracture of neck of left femur, initial encounter (HCC) XR HIP LEFT 2VW OR MORE Routine 03/23/2025 7:08 PM CDT Fibromyalgia MAGNESIUM BLOOD AM Draw 03/23/2025 12:12 AM CDT PHOSPHORUS BLOOD AM Draw 03/23/2025 12:1 2 AM CDT BASIC METABOLIC PANEL (CALCIUM TOTAL) AM Draw 03/23/2025 12:12 AM CDT CBC W/O DIFFERENTIAL AM Draw 03/23/2025 12:12 AM CDT MAGNESIUM BLOOD AM Draw 03/22/2025 1:35 AM CDT PHOSPHORUS BLOOD AM Draw 03/22/2025 1:35 AM CDT BASIC METABOLIC PANEL (CALCIUM TOTAL) AM Draw 03/22/2025 1:35 AM CDT CBC W/O DIFFERENTIAL AM Draw 03/22/2025 1:35 AM CDT MAGNESIUM BLOOD AM Draw 03/21/2025 12:13 AM CDT PHOSPHORUS BLOOD AM Draw 03/21/2025 12:1 3 AM CDT BASIC METABOLIC PANEL (CALCIUM TOTAL) AM Draw 03/21/2025 12:13 AM CDT CBC W/O DIFFERENTIAL AM Draw 03/21/2025 12:13 AM CDT FL GINA SURGERY Routine 03/20/2025 7:27 PM CDT Closed fracture of neck of left femur, initial encounter (HCC) ENDOTRACHEAL TUBE NOTE Routine 03/20/2025 6:36 PM CDT MD OPEN RX FEMUR FX+INTRAMED DORI 03/20/2025 5:55 PM CDT Fracture Special Needs GINA KEE - 5/3 @ 2029 CW BLOOD TYPE VERIFICATION STAT 03/20/2025 7:38 AM CDT URINALYSIS REFLEX TO MICROSCOPIC NO CULTURE STAT 03/20/2025 4:08 AM CDT VITAMIN D 25-HYDROXY AM Draw 03/20/2025 12:54 AM CDT VITAMIN B12 AM Draw 03/20/2025 12:54 AM CDT IRON + TRANSFERRIN PANEL Routine 03/20/2025 12:54 AM CDT MAGNESIUM BLOOD AM Draw 03/20/2025 12:54 AM CDT PHOSPHORUS BLOOD AM Draw 03/20/2025 12:5 4 AM CDT BASIC METABOLIC PANEL (CALCIUM TOTAL) AM Draw 03/20/2025 12:54 AM CDT CBC W/O DIFFERENTIAL AM Draw 03/20/2025 12:54 AM CDT PTT [facility] AM Draw 03/20/2025 12:54 AM CDT XR FOOT RIGHT 3VW OR MORE STAT 03/19/2025 1:42 PM CDT Closed fracture of neck of left femur, initial encounter (HCC) XR PELVIS 1 OR 2VW STAT 03/19/2025 1: 42 PM CDT Closed fracture of neck of left femur, initial encounter (HCC) XR CALCANEUS LEFT 2VW OR MORE STAT 03/19/2025 1:42 PM CDT Closed fracture of neck of left femur, initial encounter (HCC) XR CALCANEUS RIGHT 2VW OR MORE STAT 03/19/2025 1:42 PM CDT Fall, initial encounter CT FOOT LEFT WO CONTRAST STAT 03/19/2025 10:46 AM CDT Fall, initial encounter CT ANKLE LEFT WO CONTRAST STAT 03/19/2025 10:46 AM CDT Fall, initial encounter HCG URINE QUAL POCT NOTIFICATION STAT 03/19/2025 10:10 AM CDT XR STRESS ANY JOINT STAT 03/19/2025 1 0:04 AM CDT Closed fracture of neck of left femur, initial encounter (HCC) HEMOGLOBIN A1C ALEXA 03/19/2025 7:[address] LUMBAR SPINE WO CONTRAST STAT 03/19/2025 6:46 AM CDT Fall, initial encounter CT THORACIC SPINE WO CONTRAST STAT 03/19/2025 6:46 AM CDT Fall, initial encounter CT CHEST ABDOMEN PELVIS W CONT STAT 03/19/2025 6:46 AM CDT Fall, initial encounter CT CERVICAL SPINE WO CONTRAST STAT 03/19/2025 6:46 AM CDT Fall, initial encounter CT HEAD WO CONTRAST STAT 03/19/2025 6 :46 AM CDT Fall, initial encounter XR FEMUR LEFT 2VW STAT 03/19/2025 5:3 2 AM CDT Fall, initial encounter XR HIP LEFT 2VW OR MORE STAT 03/19/2025 5:32 AM CDT Fall, initial encounter TYPE + SCREEN PANEL STAT 03/19/2025 4 :10 AM CDT VITAMIN D 25-HYDROXY ALEXA 03/19/2025 4:10 AM CDT PT-INR [facility] STAT 03/19/2025 4:10 AM CDT COMPREHENSIVE METABOLIC PANEL STAT 03/19/2025 4:10 AM CDT CBC W AUTO DIFFERENTIAL STAT 03/19/2025 4:10 AM CDT XR ANKLE LEFT 3VW OR MORE STAT 03/19/2025 2:48 AM CDT Fall, initial encounter XR FOOT LEFT 3VW OR MORE STAT 03/19/2025 2:35 AM CDT Fall, initial encounter from Last 3 Months Results * XR Calcaneus Left 2Vw or More (05/05/2025 9:16 AM CDT) Only the most recent of2 resultswithin the time period is included. Anatomical Region Laterality Modality Lower Extremity, Ankle / Foot Ra diographic Imaging 05/06/2025 7:39 AM CDT Impressions 05/06/2025 8:06 AM CDT IMPRESSION: Unchanged osseous alignment. Report dictated by Deuce Charles MD (university president). I, Juan Ramon Manjarrez MD have personally reviewed and interpreted this examination/study. > Interpreting Provider: Juan Ramon Manjarrez MD on 05/06/2025 8:06 AM Narrative 05/06/2025 8:06 AM CDT PROCEDURE: XR CALCANEUS LEFT 2VW OR MORE, DATE/TIME OF EXAM: 05/05/2025 9:16 AM, LOCATION [facility] INDICATION: S92.002A: Closed nondisplaced fracture of left calcaneus, unspecified portion of calcaneus, initial encounter ADDITIONAL CLINICAL INFORMATION: Ordering Provider Reason For Exam: fracture COMPARISON: Left calcaneal radiographs dated 03/19/2025 FINDINGS/IMPRESSION: A mildly displaced calcaneal fracture is unchanged in alignment. There is sclerosis in the bone suggesting healing. The soft tissues are normal. Procedure Note Juan Ramon Manjarrez MD - 05/06/2025 PROCEDURE: XR CALCANEUS LEFT 2VW OR MORE, DATE/TIME OF EXAM: 05/05/2025 9:16 AM, LOCATION [facility] INDICATION: S92.002A: Closed nondisplaced fracture of left calcaneus, unspecified portion of calcaneus, initial encounter ADDITIONAL CLINICAL INFORMATION: Ordering Provider Reason For Exam: fracture COMPARISON: Left calcaneal radiographs dated 03/19/2025 FINDINGS/IMPRESSION: A mildly displaced calcaneal fracture is unchanged in alignment. There is sclerosis in the bone suggesting healing. The soft tissues are normal. IMPRESSION: Unchanged osseous alignment. Report dictated by Deuce Charles MD (university president). Juan Ramon Thompson MD have personally reviewed and interpreted this examination/study. > Interpreting Provider: Juan Ramon Manjarrez MD on 05/06/2025 8:06 AM Raquel Lozoya MD DIAGNOSTIC IMAGING ORDERABL ES Final Result * XR Hip Left 2Vw or More (05/05/2025 9:16 AM CDT) Only the most recent of3 resultswithin the time period is included. Anatomical Region Laterality Modality Pelvis, Lower Extremity Radiogra [facility] 05/06/2025 7:38 AM CDT Impressions 05/06/2025 8:05 AM CDT IMPRESSION: Redemonstrated internal fixation of an intertrochanteric left femur fracture, unchanged in alignment compared to prior exam. Report dictated by Deuce Charles MD (university president). Juan Ramon Thompson MD have personally reviewed and interpreted this examination/study. > Interpreting Provider: Juan Ramon Manjarrez MD on 05/06/2025 8:05 AM Narrative 05/06/2025 8:05 AM CDT PROCEDURE: XR HIP LEFT 2VW OR MORE, DATE/TIME OF EXAM: 05/05/2025 9:16 AM, LOCATION [facility] INDICATION: S72.002A: Closed fracture of neck of left femur, initial encounter ([facility]) ADDITIONAL CLINICAL INFORMATION: Ordering Provider Reason For Exam: fracture COMPARISON: Left hip radiographs dated 03/23/2025 FINDINGS: Redemonstrated internal fixation of an intertrochanteric fracture with an intramedullary nail and screws. Orthopedic hardware is intact and osseous alignment is unchanged compared to prior exam. Hip joint space is preserved. Procedure Note Juan Ramon Manjarrez MD - 05/06/2025 PROCEDURE: XR HIP LEFT 2VW OR MORE, DATE/TIME OF EXAM: 05/05/2025 9:16AM, LOCATION [facility] INDICATION: S72.002A: Closed fracture of neck of left femur, initial encounter ([facility]) ADDITIONAL CLINICAL INFORMATION: Ordering Provider Reason For Exam: fracture COMPARISON: Left hip radiographs dated 03/23/2025 FINDINGS: Redemonstrated internal fixation of an intertrochanteric fracture withan intramedullary nail and screws. Orthopedic hardware is intact andosseous alignment is unchanged compared to prior exam. Hip joint space is preserved. IMPRESSION: Redemonstrated internal fixation of an intertrochanteric left femur fracture, unchanged in alignment compared to prior exam. Report dictated by Deuce Charles MD (university president). I, Juan Ramon Manjarrez MD have personally reviewed and interpreted this examination/study. > Interpreting Provider: Juan Ramon Manjarrez MD on 05/06/2025 8:05 AM Raquel Lozoya MD DIAGNOSTIC IMAGING ORDERABL ES Final Result * (ABNORMAL) CBC W/O DIFFERENTIAL (03/23/2025 12:12 AM CDT) Only the most recent of4 resultswithin the time period is included. WBC 7.7 4.0 - 10.7 x10E9/L 03/23/2025 1:29 AM [facility] RBC Count 2.47(L) 3.90 - 5.20 x10E12/L 03/23/2025 1:29 AM [facility] Hemoglobin 7.5(L) 11.9 - 15.8 g/dL 03/23/2025 1:29 AM [facility] Hematocrit 22.6(L) 34.8 - 46.1 % 03/23/2025 1:29 AM [facility] MCV 91.5 80.0 - 98.0 fL 03/23/2025 1:29 AM [facility] MCH 30.4 26.7 - 33.6 pg 03/23/2025 1:29 AM [facility] MCHC 33.2 31.7 - 36.3 g/dL 03/23/2025 1:29 AM [facility] RDW-CV 13.6 11.3 - 14.8 % 03/23/2025 1:29 AM [facility] Platelet Count 159 150 - 420 x10E9/L 03/23/2025 1:29 AM [facility] MPV 12.7(H) 7.8 - 11.4 fL 03/23/2025 1:29 AM [facility] Blood BLOOD SPECIMEN / Unknown Lab Venipuncture / Unknown 03/23/2025 12:12 AM CDT 03/23/2025 1:06 AM CDT us Barbara Washington MD LAB - HEMATOLOGY ORDERABLES Cathi cordoba Result [facility] [address] [place] [address], [facility] [phone] * (ABNORMAL) BASIC METABOLIC PANEL (CALCIUM TOTAL) (03/23/2025 12:12 AM CDT) Only the most recent of4 resultswithin the time period is included. BUN 15 7 - 26 mg/dL 03/23/2025 1:40 AM [facility] Creatinine 0.51(L) 0.56 - 0.96 mg/dL 03/23/2025 1:40 AM [facility] Sodium 138 136 - 145 mmol/L 03/23/2025 1:40 AM [facility] Potassium 3.4(L) 3.5 - 4.5 mmol/L 03/23/2025 1:40 AM [facility] Chloride 102 98 - 107 mmol/L 03/23/2025 1:40 AM [facility] CO2 29 22 - 29 mmol/L 03/23/2025 1:40 AM [facility] Glucose 136(H) 70 - 99 mg/dL 03/23/2025 1:40 AM [facility] Calcium 7.9(L) 8.4 - 10.2 mg/dL 03/23/2025 1:40 AM [facility] Anion Gap 7 6 - 16 03/23/2025 1:40 AM CDT [facility] BUN/Creatinine Ratio 29(H) 7 - 23 03/23/2025 1:40 AM CDT [facility] Osmolality Calculated 289 275 - 295 mOsm/kg 03/23/2025 1:40 AM CDT [facility] eGFR by CKD-EPI >90 >=90 mL/min/1.7 3 m2 03/23/2025 1:40 AM CDT [facility] Blood BLOOD SPECIMEN / Unknown Lab Venipuncture / Unknown 03/23/2025 12:12 AM CDT 03/23/2025 1:07 AM CDT us Barbara Washington MD LAB - CHEMISTRY ORDERABLES Final Result Performing Organization Address City/[facility]/ZIP Co de Phone Number [facility] [address] [place] [address], [place] [phone] * PHOSPHORUS BLOOD (03/23/2025 12:12 AM CDT) Only the most recent of4 resultswithin the time period is included. Phosphorus 3.0 2.9 - 5.1 mg/dL 03/23/2025 1:40 AM CDT [facility] Blood BLOOD SPECIMEN / Unknown Lab Venipuncture / Unknown 03/23/2025 12:12 AM CDT 03/23/2025 1:07 AM CDT us Barbara Washington MD LAB - CHEMISTRY ORDERABLES Final Result [facility] [address] [place] [address], [place] [phone] * MAGNESIUM BLOOD (03/23/2025 12:12 AM CDT) Only the most recent of4 resultswithin the time period is included. Magnesium 2.0 1.6 - 2.6 mg/dL 03/23/2025 1:40 AM CDT [facility] Blood BLOOD SPECIMEN / Unknown Lab Venipuncture / Unknown 03/23/2025 12:12 AM CDT 03/23/2025 1:07 AM CDT us Barbara Washington MD LAB - CHEMISTRY ORDERABLES Final Result Performing Organization Address City/[facility]/ZIP Co de Phone Number [place] [address] [place] [address], [place] [phone] * [place] Gina Surgery (03/20/2025 7:27 PM CDT) Narrative [facility] RADIOLOGY - 03/20/2025 7:27 PM CDT Fluoroscopy was used for this exam in the OR. Please see the Operative report. us Julius T Gengler DO FLUOROSCOPY ORDERABLES Final R esult Performing Organization Address [facility] Co de Phone Number [facility] * ETT LINE PERFORMABLE (03/20/2025 6:36 PM CDT) Narrative Chris Brandon CAA - 03/20/2025 6:36 PM CDT Chris Brandon CAA 03/20/2025 6:39 PM Endotracheal Tube Placement: Patient Location: OR. Intubation Event Date/Time: 03/20/2025 6:29 PM Procedure: intubation ([id number]) Procedure Section: Sedation: under general anesthesia. Indications for Airway Management: anesthesia Induction: standard IV Patient Position: sniffing Blade Type: Rupesh Blade Size: 3 Laryngoscopy View: grade 1 (full cords) Intubation Adjuncts: stylet Tube: endotracheal tube Placement: oral Tube type: cuff - inflated Tube Size (MM): 7 Depth of Insertion (CM): 21 Measured From: teeth Cuff Inflated With: air Number of Attempts: 1. Placement Verified By: direct visualization, bilateral breath sounds, chest auscultation, CO2 monitor and CO2 detector Tube secured with: adhesive tape. Dentition unchanged? Yes Difficult Airway? No. Procedure Start Time: 03/20/2025 6:29 PM. Staff Section Anesthesia Provider: Chris Brandon CAA, Performed the procedure Provider #1: Hallie Jones MD. Additional Comments: Atraumatic intubation, dentition as in pre-op. . us Hallie Jones MD GENERAL ANESTHESIA ORDERABL ES Final Result * BLOOD TYPE VERIFICATION (03/20/2025 7:38 AM CDT) ABO Rh O NEG 03/20/2025 8:1 7 AM T [facility] Blood Bank BLOOD SPECIMEN / Unknown Lab Venipuncture / Unknown 03/20/2025 7:38 AM CDT 03/20/2025 7:46 AM CDT us Barbara Washington MD LAB - BLOOD BANK ORDERABLES Cathi adalid Result [facility] [address] [place] [address], [facility] [phone] * URINALYSIS REFLEX TO MICROSCOPIC NO CULTURE (03/20/2025 4:08 AM CDT) Color UA Yellow Yellow, Straw 03/20/2025 4:33 AM T [facility] Clarity UA Clear Clear 03/20/2025 4:33 AM [facility] Glucose UA Normal Normal 03/20/2025 4:33 AM [facility] Bilirubin UA Negative Negative 03/20/2025 4:33 AM [facility] Ketone UA Negative Negative 03/20/2025 4:33 AM [facility] Specific Aurora UA 1.026 1.005 - 1.030 03/20/2025 4:33 AM [facility] Blood UA Negative Negative 03/20/2025 4:33 AM [facility] pH UA 6.0 5.0 - 9.0 pH 03/20/2025 4:33 AM [facility] Protein UA Negative Negative 03/20/2025 4:33 AM [facility] Urobilinogen UA Normal Normal mg/dL 025 4:33 AM [facility] Nitrite UA Negative Negative 03/20/2025 4:33 AM [facility] Leukocyte Esterase UA Negative Negative 03/20/2025 4:33 AM [facility] Urine URINE SPECIMEN OBTAINED BY CLEAN CATCH PROCEDURE / Unknown Collection / Unknown 03/20/2025 4:08 AM CDT 03/20/2025 4:26 AM CDT Barbara Washington MD LAB - URINALYSIS ORDERABLES Cathi l Result Performing Organization Address [facility] Co de Phone Number [address] [address], [facility] [phone] * PTT [facility] (03/20/2025 12:54 AM CDT) APTT 30.8 23.0 - 38.4 Seconds 03/20/2025 1:52 AM CDT [facility] Comment:Suggested therapeuti c range for full dose I.V. unfractionated heparin therapy for venous thromboembolism is 71 to 109 seconds. Blood BLOOD SPECIMEN / Unknown Lab Venipuncture / Unknown 03/20/2025 12:54 AM CDT 03/20/2025 1:18 AM CDT Barbara Washington MD LAB - COAGULATION ORDERABLES Fin al Result Performing Organization Address [facility] de Phone Number [address] [address], [facility] [phone] * VITAMIN D 25-HYDROXY (03/20/2025 12:54 AM CDT) Only the most recent of2 resultswithin the time period is included. Vitamin D, 25 Hydroxy 41.5 30.0 - 80.0 ng/mL 03/20/2025 2:24 AM CDT [facility] Comment: The recommendations for 25-Hydroxy Vitamin D clinical decision points are as follows: Deficient: <20.0 ng/mL Insufficient: 20.0 - 29.9 ng/mL Sufficient: 30.0 - 100.0 ng/mL Potential Toxicity: >100 ng/mL Reference: The Endocrine Society Clinical Practice Guidelines. 2011 If the 25-Hydroxy Vitamin D results are inconsitent with clinical evidence, it is recommended that follow-up testing using a method such as LC/MS/MS be performed to confirm the result. Blood BLOOD SPECIMEN / Unknown Lab Venipuncture / Unknown 03/20/2025 12:54 AM CDT 03/20/2025 1:28 AM CDT us Pool Kern MD LAB - CHEMISTRY ORDERABLES Final Result [address] [address], [place] [phone] * VITAMIN B12 (03/20/2025 12:54 AM CDT) Vitamin B12 483 213 - 816 pg/mL 03/20/2025 2:24 AM CDT [facility] Blood BLOOD SPECIMEN / Unknown Lab Venipuncture / Unknown 03/20/2025 12:54 AM CDT 03/20/2025 1:28 AM CDT us Pool Kern MD LAB - CHEMISTRY ORDERABLES Final Result Performing Organization Address [facility]/ZIP Co de Phone Number [address] [address], [place] [phone] * (ABNORMAL) IRON + TRANSFERRIN PANEL (03/20/2025 12:54 AM CDT) Iron 14(L) 40 - 150 ug/dL 03/20/2025 1:50 AM CDT [facility] Transferrin 272 174 - 382 mg/dL 03/20/2025 1:50 AM CDT [facility] Transferrin Saturation % 4(L) 16 - 50 % 03/20/2025 1:50 AM CDT [facility] TIBC Calculated 340 240 - 450 ug/dL 03/20/2025 1:50 AM CDT [facility] Blood BLOOD SPECIMEN / Unknown Lab Venipuncture / Unknown 03/20/2025 12:54 AM CDT 03/20/2025 1:18 AM CDT us Pool Kern MD LAB - CHEMISTRY ORDERABLES Final Result Performing Organization Address City/[facility]/ZIP Co de Phone Number [address] [address], [place] [phone] * XR Foot Right 3Vw or More (03/19/2025 1:42 PM CDT) Anatomical Region Laterality Modality Ankle / Foot Digital Radiogra phy 03/19/2025 6:59 PM CDT Narrative 03/19/2025 7:02 PM CDT PROCEDURE: XR PELVIS 1 OR 2VW, XR FOOT RIGHT 3VW OR MORE, XR HIP LEFT 2VW OR MORE DATE/TIME OF EXAM: 03/19/2025 1:42 PM CLINICAL INFORMATION: None relevant/not provided if blank. Indication: S72.002A: Closed fracture of neck of left femur, initial encounter ([facility]) Additional History: COMPARISON: None. FINDINGS: Pelvis and left hip: Comminuted left intertrochanteric fracture noted with the displacement of the fragments. Alignment of the hip joint is anatomy. Right hip is unremarkable. No acute fractures identified elsewhere in the pelvic bones and the frontal radiograph. Right foot: No acute fractures or dislocations is seen. The joint spaces are preserved. No bony erosions or destructions are seen. Bone mineral density is within normal limits. No significant soft tissue swelling or joint effusion is seen.Calcaneal spur is noted. > Interpreting Provider: Neris Chua MD on 03/19/2025 7:02 PM Procedure Note Neris Chua MD - 03/19/2025 PROCEDURE: XR PELVIS 1 OR 2VW, XR FOOT RIGHT 3VW OR MORE, XR HIP [id number] OR MORE DATE/TIME OF EXAM: 03/19/2025 1:42 PM CLINICAL INFORMATION: None relevant/not provided if blank. Indication: S72.002A: Closed fracture of neck of left femur, initial encounter ([facility]) Additional History: COMPARISON: None. FINDINGS: Pelvis and left hip: Comminuted left intertrochanteric fracture notedwith the displacement of the fragments. Alignment of the hip joint isanatomy. Right hip is unremarkable. No acute fractures identified elsewhere inthe pelvic bones and the frontal radiograph. Right foot: No acute fractures or dislocations is seen. The joint spaces are preserved. No bony erosions or destructions are seen. Bone mineral density is within normal limits. No significant soft tissue swelling or joint effusion is seen.Calcaneal spur is noted. > Interpreting Provider: Neris Chua MD on 03/19/2025 7:02PM us Pool Kern MD DIAGNOSTIC IMAGING ORDERABLES Fi nal Result * XR Pelvis 1 or 2Vw (03/19/2025 1:42 PM CDT) Anatomical Region Laterality Modality Pelvis Digital Radiogra phy 03/19/2025 6:59 PM CDT Narrative 03/19/2025 7:02 PM CDT PROCEDURE: XR PELVIS 1 OR 2VW, XR FOOT RIGHT 3VW OR MORE, XR HIP LEFT 2VW OR MORE DATE/TIME OF EXAM: 03/19/2025 1:42 PM CLINICAL INFORMATION: None relevant/not provided if blank. Indication: S72.002A: Closed fracture of neck of left femur, initial encounter ([facility]) Additional History: COMPARISON: None. FINDINGS: Pelvis and left hip: Comminuted left intertrochanteric fracture noted with the displacement of the fragments. Alignment of the hip joint is anatomy. Right hip is unremarkable. No acute fractures identified elsewhere in the pelvic bones and the frontal radiograph. Right foot: No acute fractures or dislocations is seen. The joint spaces are preserved. No bony erosions or destructions are seen. Bone mineral density is within normal limits. No significant soft tissue swelling or joint effusion is seen.Calcaneal spur is noted. > Interpreting Provider: Neris Chua MD on 03/19/2025 7:02 PM Procedure Note Neris Chua MD - 03/19/2025 PROCEDURE: XR PELVIS 1 OR 2VW, XR FOOT RIGHT 3VW OR MORE, XR HIP [id number] OR MORE DATE/TIME OF EXAM: 03/19/2025 1:42 PM CLINICAL INFORMATION: None relevant/not provided if blank. Indication: S72.002A: Closed fracture of neck of left femur, initial encounter ([facility]) Additional History: COMPARISON: None. FINDINGS: Pelvis and left hip: Comminuted left intertrochanteric fracture notedwith the displacement of the fragments. Alignment of the hip joint isanatomy. Right hip is unremarkable. No acute fractures identified elsewhere inthe pelvic bones and the frontal radiograph. Right foot: No acute fractures or dislocations is seen. The joint spaces are preserved. No bony erosions or destructions are seen. Bone mineral density is within normal limits. No significant soft tissue swelling or joint effusion is seen.Calcaneal spur is noted. > Interpreting Provider: Neris Chua MD on 03/19/2025 7:02PM us Pool Kern MD DIAGNOSTIC IMAGING ORDERABLES Fi nal Result * XR Calcaneus Right 2Vw or More (03/19/2025 1:42 PM CDT) Anatomical Region Laterality Modality Ankle / Foot, Lower Extremity Di gital Radiography 03/19/2025 6:5 8 PM CDT Narrative 03/19/2025 6:59 PM CDT PROCEDURE: XR CALCANEUS RIGHT 2VW OR MORE DATE/TIME OF EXAM: 03/19/2025 1:42 PM CLINICAL INFORMATION: None relevant/not provided if blank. Indication: W19.XXXA: Fall, initial encounter Additional History: COMPARISON: None. FINDINGS: No acute fractures or dislocations is seen. Calcaneal spur is noted without associated significant soft tissue swelling. > Interpreting Provider: Neris Chua MD on 03/19/2025 6:59 PM Procedure Note Neris Chua MD - 03/19/2025 PROCEDURE: XR CALCANEUS RIGHT 2VW OR MORE DATE/TIME OF EXAM: 03/19/2025 1:42 PM CLINICAL INFORMATION: None relevant/not provided if blank. Indication: W19.XXXA: Fall, initial encounter Additional History: COMPARISON: None. FINDINGS: No acute fractures or dislocations is seen. Calcaneal spur is notedwithout associated significant soft tissue swelling. > Interpreting Provider: Nreis Chua MD on 03/19/2025 6:59PM us Pool Kern MD DIAGNOSTIC IMAGING ORDERABLES Fi nal Result * CT Ankle Left Wo Contrast (03/19/2025 10:46 AM CDT) Anatomical Region Laterality Modality Lower Extremity Computed Tomogra phy 03/19/2025 11:3 4 AM CDT Impressions 03/19/2025 12:14 PM CDT IMPRESSION: There is a mildly displaced, intra-articular fracture of the calcaneus extending from the lateral surface to the anterior joint surfaces the cuboid bone and the extending to the medial surface Report dictated by Juan Salcedo MD (university president) I, Juan Ramon Manjarrez MD have personally reviewed and interpreted this examination/study. > Interpreting Provider: Juan Ramon Manjarrez MD on 03/19/2025 12:14 PM Narrative 03/19/2025 12:14 PM CDT PROCEDURE: CT ANKLE LEFT WO CONTRAST, CT FOOT LEFT WO CONTRAST, DATE/TIME OF EXAM: 03/19/2025 10:47 AM, LOCATION [facility] INDICATION: W19.XXXA: Fall, initial encounter ADDITIONAL CLINICAL INFORMATION: Ordering Provider Reason For Exam: assess medial mal and medial talus (accession [id number]), r/p medial column fx (accession [id number]) Technologist Note: Additional: COMPARISON: Ankle radiograph dated 03/19/2025 FINDINGS: Left ankle: There is a mildly displaced, intra-articular fracture of the calcaneus extending from the lateral surface to the anterior joint surfaces the cuboid bone and the extending to the medial surface.. Mild degenerative change of the tibiotalar joint with subchondral cysts, including a relatively large subchondral cyst (cystic osteochondral lesion) measuring 1.4 cm at the medial aspect of the talar dome (series 6 image 27). There is mild soft tissue swelling. The ankle joint is well aligned without dislocation. Left foot: Mildly displaced intra-articular fracture of the calcaneus. Mild soft tissue swelling. No additional foot fracture. Procedure Note Juan Ramon Manjarrez MD - 03/19/2025 PROCEDURE: CT ANKLE LEFT WO CONTRAST, CT FOOT LEFT WO CONTRAST,DATE/TIME OF EXAM: 03/19/2025 10:47 AM, LOCATION [facility] INDICATION: W19.XXXA: Fall, initial encounter ADDITIONAL CLINICAL INFORMATION: Ordering Provider Reason For Exam: assess medial mal and medial talus (accession [id number]), r/p medial column fx (accession [id number]) Technologist Note: Additional: COMPARISON: Ankle radiograph dated 03/19/2025 FINDINGS: Left ankle: There is a mildly displaced, intra-articular fracture of the calcaneus extending from the lateral surface to the anterior joint surfaces the cuboid bone and the extending to the medial surface.. Mild degenerative change of the tibiotalar joint with subchondral cysts, including a relatively large subchondral cyst (cystic osteochondral lesion)measuring 1.4 cm at the medial aspect of the talar dome (series 6 image 27). Thereis mild soft tissue swelling. The ankle joint is well aligned without dislocation. Left foot: Mildly displaced intra-articular fracture of the calcaneus. Mild soft tissue swelling. No additional foot fracture. IMPRESSION: There is a mildly displaced, intra-articular fracture of the calcaneus extending from the lateral surface to the anterior joint surfaces the cuboid bone and the extending to the medial surface Report dictated by Juan Salcedo MD (university president) IJuan Ramon MD have personally reviewed and interpreted this examination/study. > Interpreting Provider: Juan Ramon Manjarrez MD on 03/19/2025 12:14 PM us Barbara Washington MD CT ORDERABLES Final Result * CT Foot Left Wo Contrast (03/19/2025 10:46 AM CDT) Anatomical Region Laterality Modality Ankle / Foot Computed Tomogra phy 03/19/2025 11:3 4 AM CDT Impressions 03/19/2025 12:14 PM CDT IMPRESSION: There is a mildly displaced, intra-articular fracture of the calcaneus extending from the lateral surface to the anterior joint surfaces the cuboid bone and the extending to the medial surface Report dictated by Juan Salcedo MD (university president) Juan Ramon Thompson MD have personally reviewed and interpreted this examination/study. > Interpreting Provider: Juan Ramon Manjarrez MD on 03/19/2025 12:14 PM Narrative 03/19/2025 12:14 PM CDT PROCEDURE: CT ANKLE LEFT WO CONTRAST, CT FOOT LEFT WO CONTRAST, DATE/TIME OF EXAM: 03/19/2025 10:47 AM, LOCATION [facility] INDICATION: W19.XXXA: Fall, initial encounter ADDITIONAL CLINICAL INFORMATION: Ordering Provider Reason For Exam: assess medial mal and medial talus (accession [id number]), r/p medial column fx (accession [id number]) Technologist Note: Additional: COMPARISON: Ankle radiograph dated 03/19/2025 FINDINGS: Left ankle: There is a mildly displaced, intra-articular fracture of the calcaneus extending from the lateral surface to the anterior joint surfaces the cuboid bone and the extending to the medial surface.. Mild degenerative change of the tibiotalar joint with subchondral cysts, including a relatively large subchondral cyst (cystic osteochondral lesion) measuring 1.4 cm at the medial aspect of the talar dome (series 6 image 27). There is mild soft tissue swelling. The ankle joint is well aligned without dislocation. Left foot: Mildly displaced intra-articular fracture of the calcaneus. Mild soft tissue swelling. No additional foot fracture. Procedure Note Juan Ramon Manjarrez MD - 03/19/2025 PROCEDURE: CT ANKLE LEFT WO CONTRAST, CT FOOT LEFT WO CONTRAST,DATE/TIME OF EXAM: 03/19/2025 10:47 AM, LOCATION [facility] INDICATION: W19.XXXA: Fall, initial encounter ADDITIONAL CLINICAL INFORMATION: Ordering Provider Reason For Exam: assess medial mal and medial talus (accession [id number]), r/p medial column fx (accession [id number]) Technologist Note: Additional: COMPARISON: Ankle radiograph dated 03/19/2025 FINDINGS: Left ankle: There is a mildly displaced, intra-articular fracture of the calcaneus extending from the lateral surface to the anterior joint surfaces the cuboid bone and the extending to the medial surface.. Mild degenerative change of the tibiotalar joint with subchondral cysts, including a relatively large subchondral cyst (cystic osteochondral lesion)measuring 1.4 cm at the medial aspect of the talar dome (series 6 image 27). Thereis mild soft tissue swelling. The ankle joint is well aligned without dislocation. Left foot: Mildly displaced intra-articular fracture of the calcaneus. Mild soft tissue swelling. No additional foot fracture. IMPRESSION: There is a mildly displaced, intra-articular fracture of the calcaneus extending from the lateral surface to the anterior joint surfaces the cuboid bone and the extending to the medial surface Report dictated by Juan Salcedo MD (university president) Juan Ramon Thompson MD have personally reviewed and interpreted this examination/study. > Interpreting Provider: Juan Ramon Manjarrez MD on 03/19/2025 12:14 PM Result [facility] Barbara Washington MD CT ORDERABLES Final Result * HCG URINE QUAL POCT NOTIFICATION (03/19/2025 10:10 AM CDT) Comment Notification Label Only - See Separate Report 03/19/2025 5:31 PM CDT [facility] Urine URINE / Unknown 03/19/2025 1 0:10 AM CDT 03/19/2025 4:28 PM CDT Result [facility] Barbara Washington MD LAB - URINALYSIS ORDERABLES Cathi l Result [address] [address], [facility] [phone] * XR Stress Any Joint (03/19/2025 10:04 AM CDT) Anatomical Region Laterality Modality Lower Extremity, Upper Extremity Digital Radiography 03/19/2025 10:0 7 AM CDT Narrative 03/19/2025 11:44 AM CDT PROCEDURE: XR STRESS ANY JOINT, DATE/TIME OF EXAM: 03/19/2025 10:05 AM, LOCATION [facility] INDICATION: S72.002A: Closed fracture of neck of left femur, initial encounter ([facility]) ADDITIONAL CLINICAL INFORMATION: Ordering Provider Reason For Exam: fx alignment COMPARISON: None. FINDINGS/IMPRESSION: Acute comminuted and mildly displaced intertrochanteric fracture of the left femur and avulsion of the lesser trochanter. There is associated soft tissue swelling. Report dictated by Win Lindsey MD, (Nuclear Scientist). Neris Thompson MD have personally reviewed and interpreted this examination/study. > Interpreting Provider: Neris Chua MD on 03/19/2025 11:44 AM Procedure Note Neris Chua MD - 03/19/2025 PROCEDURE: XR STRESS ANY JOINT, DATE/TIME OF EXAM: 03/19/2025 10:05 AM, LOCATION [facility] INDICATION: S72.002A: Closed fracture of neck of left femur, initial encounter ([facility]) ADDITIONAL CLINICAL INFORMATION: Ordering Provider Reason For Exam: fx alignment COMPARISON: None. FINDINGS/IMPRESSION: Acute comminuted and mildly displaced intertrochanteric fracture of the left femur and avulsion of the lesser trochanter. There is associatedsoft tissue swelling. Report dictated by Win Lindsey MD, (Nuclear Scientist). I, Neris Chua MD have personally reviewed and interpreted this examination/study. > Interpreting Provider: Neris Chua MD on 511:44 AM us Barbara Washington MD DIAGNOSTIC IMAGING ORDERABLES Fi nal Result * HEMOGLOBIN A1C (03/19/2025 7:39 AM CDT) Hemoglobin A1c 4.4 <=5.6 % 03/19/2025 9:05 AM [facility] Estimated Average Glucose 80 mg/dL 03/19/2025 9:05 AM [facility] Comment: HbA1c Interpretation: Normal : < 5.7% Pre-diabetes: 5.7-6.4% Diabetes: Equal to or greater than 6.5% Test results diagnostic of diabetes should be repeated for confirmation. Treatment target values recommended by ADA and other clinical organizations should be used to evaluate metabolic control in patients. Reference: [place] [employer], Standards of Care in Diabetes -2020 In patients 70 years and older consider HbA1c target range of 7.0-7.5% (Reference: Balwinder Mota et al. JAMDA. 2012) The Sebia assay for the measurement of HbA1c is a National Glycohemoglobin Standardization Program (NGSP) certified method. Blood BLOOD SPECIMEN / Unknown Venipuncture / Unknown 03/19/2025 7:39 AM CDT 03/19/2025 7:52 AM CDT us Barbara Washington MD LAB - CHEMISTRY ORDERABLES Final Result [facility] [address] [place] [address], [facility] [phone] * CT CHEST ABDOMEN PELVIS W CONT - Abdomen-pelvis trauma, blunt or penetrating (03/19/2025 6:46 AM CDT) Anatomical Region Laterality Modality Chest, Abdomen, Pelvis Computed Tomography 03/19/2025 6:55 AM CDT Impressions 03/19/2025 11:22 AM CDT Impression: 1.Acute, comminuted, displaced intertrochanteric fracture of the left femur. 2.No evidence of acute findings within the chest and abdomen. > Dictated by Ciara Chatman MD (university president). I, Juan Ramon Manjarrez MD have personally reviewed and interpreted this examination/study. > Interpreting Provider: Juan Ramon Manjarrez MD on 03/19/2025 11:22 AM Narrative 03/19/2025 11:22 AM CDT PROCEDURE: CT CHEST ABDOMEN PELVIS W CONT, DATE/TIME OF EXAM: 03/19/2025 6:48 AM, LOCATION [facility] INDICATION: Trauma ADDITIONAL CLINICAL INFORMATION: Ordering Provider Reason For Exam: Technologist Note: Additional: COMPARISON: None. TECHNIQUE: CT of the chest, abdomen, and pelvis was performed after the uneventful administration of 100 mL of Isovue 370 intravenous contrast according to standard protocol. Findings: Chest: Lower Neck and Axillae: Normal. Lungs: Mild bilateral dependent atelectasis is present. No suspicious pulmonary nodules are identified. No pleural fluid or pneumothorax is present. Heart and Pericardium: The cardiac chambers are normal in size. No pericardial fluid or thickening is present. Mediastinum and Mackenzie: No mediastinal hemorrhage is present. No enlarged lymph nodes are present. Thoracic Vasculature: No vascular abnormality is present. Abdomen/pelvis: Liver: Normal. Gallbladder and Bile Ducts: The gallbladder is absent. Spleen: Normal. Pancreas: Normal. Adrenals: Normal. Kidneys: Normal. Gastrointestinal: Postsurgical changes of gastric surgery, otherwise the residual stomach and visualized loops of large and small bowel are unremarkable. The appendix is not seen; however, no inflammatory changes are seen in the right lower quadrant. Mesentery/Peritoneum/Retroperitoneum: No free intraperitoneal air. No free fluid in the abdomen or pelvis. Bladder: Normal. Reproductive Organs: The uterus is absent. Abdominal Vasculature: Atherosclerotic calcification of the aorta and its branch vessels. Bones: Acute, comminuted, displaced intertrochanteric fracture of the left femur. Chronic appearing fracture deformity at the posterior left 10th rib. There is lumbar spine instrumented fusion. There are spinal degenerative changes. Soft tissues: Normal. Procedure Note Juan Ramon Manjarrez MD - 03/19/2025 PROCEDURE: CT CHEST ABDOMEN PELVIS W CONT, DATE/TIME OF EXAM: 03/19/2025 6:48 AM, LOCATION [facility] INDICATION: Trauma ADDITIONAL CLINICAL INFORMATION: Ordering Provider Reason For Exam: Technologist Note: Additional: COMPARISON: None. TECHNIQUE: CT of the chest, abdomen, and pelvis was performed after the uneventful administration of 100 mL of Isovue 370 intravenous contrast according to standard protocol. Findings: Chest: Lower Neck and Axillae: Normal. Lungs: Mild bilateral dependent atelectasis is present. No suspicious pulmonary nodules are identified. No pleural fluid or pneumothorax is present. Heart and Pericardium: The cardiac chambers are normal in size. No pericardial fluid orthickening is present. Mediastinum and Mackenzie: No mediastinal hemorrhage is present. No enlarged lymph nodes arepresent. Thoracic Vasculature: No vascular abnormality is present. Abdomen/pelvis: Liver: Normal. Gallbladder and Bile Ducts: The gallbladder is absent. Spleen: Normal. Pancreas: Normal. Adrenals: Normal. Kidneys: Normal. Gastrointestinal: Postsurgical changes of gastric surgery, otherwise the residual stomach and visualized loops of large and small bowel are unremarkable. The appendix is not seen; however, no inflammatory changes are seen in the right lower quadrant. Mesentery/Peritoneum/Retroperitoneum: No free intraperitoneal air. No free fluid in the abdomen or pelvis. Bladder: Normal. Reproductive Organs: The uterus is absent. Abdominal Vasculature: Atherosclerotic calcification of the aorta and its branch vessels. Bones: Acute, comminuted, displaced intertrochanteric fracture of the left femur. Chronic appearing fracture deformity at the posterior left 10th rib. There is lumbar spine instrumented fusion. There are spinal degenerative changes. Soft tissues: Normal. Impression: 1.Acute, comminuted, displaced intertrochanteric fracture of the left femur. 2.No evidence of acute findings within the chest and abdomen. > Dictated by Ciara Chatman MD (university president). I, Juan Ramon Manjarrez MD have personally reviewed and interpreted this examination/study. > Interpreting Provider: Juan Ramon Manjarrez MD on 03/19/2025 11:22 AM us Barbara Washington MD CT ORDERABLES Final Result * CT LUMBAR SPINE WO CONTRAST - T/L-spine trauma, Spine fracture (03/19/2025 6:46 AM CDT) Anatomical Region Laterality Modality Spine Computed Tomogra phy 03/19/2025 11:2 4 AM CDT Impressions 03/19/2025 11:41 AM CDT IMPRESSION: 1. No acute intracranial process. 2. No evidence of acute fracture in the cervical, thoracic, or lumbar spine. 3. Multiple chronic findings as detailed in the report. > Interpreting Provider: Flaquita Toledo MD on 03/19/2025 11:41 AM Narrative 03/19/2025 11:41 AM CDT PROCEDURE: CT HEAD WO CONTRAST, CT CERVICAL SPINE WO CONTRAST, CT THORACIC SPINE WO CONTRAST, CT LUMBAR SPINE WO CONTRAST, DATE/TIME OF EXAM: 03/19/2025 6:48 AM, LOCATION [facility] INDICATION: Trauma ADDITIONAL CLINICAL INFORMATION: Ordering Provider Reason For Exam: Technologist Note: Additional: EXAMINATION: 1. Computed tomography (CT) of the head without contrast 2. CT of the cervical spine without contrast 3. CT of the thoracic spine without contrast 4. CT of the lumbar spine without contrast TECHNIQUE: CT of the head and cervical spine were performed without contrast according to standard protocol. Reformatted axial, sagittal, and coronal images of the thoracic and lumbar spine were obtained by the technologist from a concurrently performed body CT and sent to the workstation for review. COMPARISON: No prior study is available for comparison at the time of this dictation. FINDINGS: Head: No acute intracranial hemorrhage or intra- or extra-axial fluid collections are identified. The ventricles are of normal size, shape, and morphology. The basal cisterns are patent. No mass effect or midline shift is seen. The gallagher-white matter differentiation is normal. Other than mild paranasal sinus disease, the visualized portions of the orbits, paranasal sinuses, and mastoids appear normal. Cervical spine: Small subcentimeter nodules in the thyroid gland. The alignment is normal. The prevertebral soft tissue is normal in thickness. The mineralization of the bones is normal. Vertebral bodies are normal in height without evidence of acute fracture. Other than moderate middle atlantoaxial joint osteoarthritis, the craniocervical junction appears normal. There is mild to moderate multilevel degenerative disc disease. The central canal is patent. There are varying degrees of moderate to severe multiple facet osteoarthritis. There are varying degrees of mild to moderate multilevel uncovertebral joint osteoarthritis with the same degree of neural foraminal stenosis at these levels. Thoracic spine: No soft tissue abnormality is identified. Mildly exaggerated thoracic kyphosis. Mild dextrocurvature in the thoracic spine. The mineralization of the bones is normal. Vertebral bodies are normal in height without evidence of acute fracture. There is mild multilevel degenerative disc disease. Bridging syndesmophytes and ossification of the anterior longitudinal ligament at multiple levels suggest diffuse idiopathic skeletal hyperostosis (DISH). . The central canal is patent. There are varying degrees of up to moderate facet osteoarthritis with the same degree of neural foraminal stenosis at these levels. Lumbar spine: There is atherosclerotic calcification of the abdominal aorta and its branch vessels. Postoperative changes of combined anterior and posterior spinal fusion at L3-L5 instrumentation along with L4 laminotomy. No evidence of instrumentation failure. The alignment is normal. The bones are mildly osteopenic. Vertebral bodies are normal in height without evidence of acute fracture. There is up to severe multilevel degenerative disc disease. The central canal is patent. There are varying degrees of up to severe facet osteoarthritis with the same degree of neural foraminal stenosis at these levels. Procedure Note Flaquita Toledo MD - 03/19/2025 PROCEDURE: CT HEAD WO CONTRAST, CT CERVICAL SPINE WO CONTRAST, CTTHORACIC SPINE WO CONTRAST, CT LUMBAR SPINE WO CONTRAST, DATE/TIME OF EXAM: 03/19/2025 6:48 AM, LOCATION [facility] INDICATION: Trauma ADDITIONAL CLINICAL INFORMATION: Ordering Provider Reason For Exam: Technologist Note: Additional: EXAMINATION: 1. Computed tomography (CT) of the head without contrast 2. CT of the cervical spine without contrast 3. CT of the thoracic spine without contrast 4. CT of the lumbar spine without contrast TECHNIQUE: CT of the head and cervical spine were performed without contrast according to standard protocol. Reformatted axial, sagittal,and coronal images of the thoracic and lumbar spine were obtained by the technologist from a concurrently performed body CT and sent to the workstation for review. COMPARISON: No prior study is available for comparison at the time ofthis dictation. FINDINGS: Head: No acute intracranial hemorrhage or intra- or extra-axial fluidcollections are identified. The ventricles are of normal size, shape, andmorphology. The basal cisterns are patent. No mass effect or midline shift is seen.The gallagher-white matter differentiation is normal. Other than mild paranasal sinus disease, the visualized portions of the orbits, paranasal sinuses, and mastoids appear normal. Cervical spine: Small subcentimeter nodules in the thyroid gland. The alignment is normal. The prevertebral soft tissue is normal in thickness. The mineralization of the bones is normal. Vertebral bodiesare normal in height without evidence of acute fracture. Other than moderate middle atlantoaxial joint osteoarthritis, the craniocervical junction appears normal. There is mild to moderate multilevel degenerative disc disease. The central canal is patent. There are varying degrees ofmoderate to severe multiple facet osteoarthritis. There are varying degrees ofmild to moderate multilevel uncovertebral joint osteoarthritis with the same degree of neural foraminal stenosis at these levels. Thoracic spine: No soft tissue abnormality is identified. Mildly exaggerated thoracic kyphosis. Mild dextrocurvature in thethoracic spine. The mineralization of the bones is normal. Vertebral bodies are normal in height without evidence of acute fracture. There is mild multilevel degenerative disc disease. Bridging syndesmophytes and ossification of the anterior longitudinal ligament at multiple levels suggest diffuse idiopathic skeletal hyperostosis (DISH). . The central canal is patent. There are varying degrees of up to moderate facet osteoarthritis with the same degree of neural foraminal stenosis atthese levels. Lumbar spine: There is atherosclerotic calcification of the abdominal aorta and its branch vessels. Postoperative changes of combined anterior and posterior spinal fusionat L3-L5 instrumentation along with L4 laminotomy. No evidence of instrumentation failure. The alignment is normal. The bones are mildly osteopenic. Vertebralbodies are normal in height without evidence of acute fracture. There is up to severe multilevel degenerative disc disease. The central canal ispatent. There are varying degrees of up to severe facet osteoarthritis with the same degree of neural foraminal stenosis at these levels. IMPRESSION: 1. No acute intracranial process. 2. No evidence of acute fracture in the cervical, thoracic, or lumbar spine. 3. Multiple chronic findings as detailed in the report. > Interpreting Provider: Flaquita Toledo MD on 03/19/2025 11:41 AM us Barbara Washington MD CT ORDERABLES Final Result * CT THORACIC SPINE WO CONTRAST - T/L-spine trauma, spine fracture (03/19/2025 6:46 AM CDT) Anatomical Region Laterality Modality Spine Computed Tomogra phy 03/19/2025 11:2 4 AM CDT Impressions 03/19/2025 11:41 AM CDT IMPRESSION: 1. No acute intracranial process. 2. No evidence of acute fracture in the cervical, thoracic, or lumbar spine. 3. Multiple chronic findings as detailed in the report. > Interpreting Provider: Flaquita Toledo MD on 03/19/2025 11:41 AM Narrative 03/19/2025 11:41 AM CDT PROCEDURE: CT HEAD WO CONTRAST, CT CERVICAL SPINE WO CONTRAST, CT THORACIC SPINE WO CONTRAST, CT LUMBAR SPINE WO CONTRAST, DATE/TIME OF EXAM: 03/19/2025 6:48 AM, LOCATION [facility] INDICATION: Trauma ADDITIONAL CLINICAL INFORMATION: Ordering Provider Reason For Exam: Technologist Note: Additional: EXAMINATION: 1. Computed tomography (CT) of the head without contrast 2. CT of the cervical spine without contrast 3. CT of the thoracic spine without contrast 4. CT of the lumbar spine without contrast TECHNIQUE: CT of the head and cervical spine were performed without contrast according to standard protocol. Reformatted axial, sagittal, and coronal images of the thoracic and lumbar spine were obtained by the technologist from a concurrently performed body CT and sent to the workstation for review. COMPARISON: No prior study is available for comparison at the time of this dictation. FINDINGS: Head: No acute intracranial hemorrhage or intra- or extra-axial fluid collections are identified. The ventricles are of normal size, shape, and morphology. The basal cisterns are patent. No mass effect or midline shift is seen. The gallagher-white matter differentiation is normal. Other than mild paranasal sinus disease, the visualized portions of the orbits, paranasal sinuses, and mastoids appear normal. Cervical spine: Small subcentimeter nodules in the thyroid gland. The alignment is normal. The prevertebral soft tissue is normal in thickness. The mineralization of the bones is normal. Vertebral bodies are normal in height without evidence of acute fracture. Other than moderate middle atlantoaxial joint osteoarthritis, the craniocervical junction appears normal. There is mild to moderate multilevel degenerative disc disease. The central canal is patent. There are varying degrees of moderate to severe multiple facet osteoarthritis. There are varying degrees of mild to moderate multilevel uncovertebral joint osteoarthritis with the same degree of neural foraminal stenosis at these levels. Thoracic spine: No soft tissue abnormality is identified. Mildly exaggerated thoracic kyphosis. Mild dextrocurvature in the thoracic spine. The mineralization of the bones is normal. Vertebral bodies are normal in height without evidence of acute fracture. There is mild multilevel degenerative disc disease. Bridging syndesmophytes and ossification of the anterior longitudinal ligament at multiple levels suggest diffuse idiopathic skeletal hyperostosis (DISH). . The central canal is patent. There are varying degrees of up to moderate facet osteoarthritis with the same degree of neural foraminal stenosis at these levels. Lumbar spine: There is atherosclerotic calcification of the abdominal aorta and its branch vessels. Postoperative changes of combined anterior and posterior spinal fusion at L3-L5 instrumentation along with L4 laminotomy. No evidence of instrumentation failure. The alignment is normal. The bones are mildly osteopenic. Vertebral bodies are normal in height without evidence of acute fracture. There is up to severe multilevel degenerative disc disease. The central canal is patent. There are varying degrees of up to severe facet osteoarthritis with the same degree of neural foraminal stenosis at these levels. Procedure Note Flaquita Toledo MD - 03/19/2025 PROCEDURE: CT HEAD WO CONTRAST, CT CERVICAL SPINE WO CONTRAST, CTTHORACIC SPINE WO CONTRAST, CT LUMBAR SPINE WO CONTRAST, DATE/TIME OF EXAM: 03/19/2025 6:48 AM, LOCATION [facility] INDICATION: Trauma ADDITIONAL CLINICAL INFORMATION: Ordering Provider Reason For Exam: Technologist Note: Additional: EXAMINATION: 1. Computed tomography (CT) of the head without contrast 2. CT of the cervical spine without contrast 3. CT of the thoracic spine without contrast 4. CT of the lumbar spine without contrast TECHNIQUE: CT of the head and cervical spine were performed without contrast according to standard protocol. Reformatted axial, sagittal,and coronal images of the thoracic and lumbar spine were obtained by the technologist from a concurrently performed body CT and sent to the workstation for review. COMPARISON: No prior study is available for comparison at the time ofthis dictation. FINDINGS: Head: No acute intracranial hemorrhage or intra- or extra-axial fluidcollections are identified. The ventricles are of normal size, shape, andmorphology. The basal cisterns are patent. No mass effect or midline shift is seen.The gallagher-white matter differentiation is normal. Other than mild paranasal sinus disease, the visualized portions of the orbits, paranasal sinuses, and mastoids appear normal. Cervical spine: Small subcentimeter nodules in the thyroid gland. The alignment is normal. The prevertebral soft tissue is normal in thickness. The mineralization of the bones is normal. Vertebral bodiesare normal in height without evidence of acute fracture. Other than moderate middle atlantoaxial joint osteoarthritis, the craniocervical junction appears normal. There is mild to moderate multilevel degenerative disc disease. The central canal is patent. There are varying degrees ofmoderate to severe multiple facet osteoarthritis. There are varying degrees ofmild to moderate multilevel uncovertebral joint osteoarthritis with the same degree of neural foraminal stenosis at these levels. Thoracic spine: No soft tissue abnormality is identified. Mildly exaggerated thoracic kyphosis. Mild dextrocurvature in thethoracic spine. The mineralization of the bones is normal. Vertebral bodies are normal in height without evidence of acute fracture. There is mild multilevel degenerative disc disease. Bridging syndesmophytes and ossification of the anterior longitudinal ligament at multiple levels suggest diffuse idiopathic skeletal hyperostosis (DISH). . The central canal is patent. There are varying degrees of up to moderate facet osteoarthritis with the same degree of neural foraminal stenosis atthese levels. Lumbar spine: There is atherosclerotic calcification of the abdominal aorta and its branch vessels. Postoperative changes of combined anterior and posterior spinal fusionat L3-L5 instrumentation along with L4 laminotomy. No evidence of instrumentation failure. The alignment is normal. The bones are mildly osteopenic. Vertebralbodies are normal in height without evidence of acute fracture. There is up to severe multilevel degenerative disc disease. The central canal ispatent. There are varying degrees of up to severe facet osteoarthritis with the same degree of neural foraminal stenosis at these levels. IMPRESSION: 1. No acute intracranial process. 2. No evidence of acute fracture in the cervical, thoracic, or lumbar spine. 3. Multiple chronic findings as detailed in the report. > Interpreting Provider: Flaquita Toledo MD on 03/19/2025 11:41 AM Barbara Washington MD CT ORDERABLES Final Result * CT CERVICAL SPINE WO CONTRAST - C-Spine Trauma, Spine fracture (03/19/2025 6:46 AM CDT) Anatomical Region Laterality Modality Spine Computed Tomogra phy 03/19/2025 11:2 4 AM CDT Impressions 03/19/2025 11:41 AM CDT IMPRESSION: 1. No acute intracranial process. 2. No evidence of acute fracture in the cervical, thoracic, or lumbar spine. 3. Multiple chronic findings as detailed in the report. > Interpreting Provider: Flaquita Toledo MD on 03/19/2025 11:41 AM Narrative 03/19/2025 11:41 AM CDT PROCEDURE: CT HEAD WO CONTRAST, CT CERVICAL SPINE WO CONTRAST, CT THORACIC SPINE WO CONTRAST, CT LUMBAR SPINE WO CONTRAST, DATE/TIME OF EXAM: 03/19/2025 6:48 AM, LOCATION [facility] INDICATION: Trauma ADDITIONAL CLINICAL INFORMATION: Ordering Provider Reason For Exam: Technologist Note: Additional: EXAMINATION: 1. Computed tomography (CT) of the head without contrast 2. CT of the cervical spine without contrast 3. CT of the thoracic spine without contrast 4. CT of the lumbar spine without contrast TECHNIQUE: CT of the head and cervical spine were performed without contrast according to standard protocol. Reformatted axial, sagittal, and coronal images of the thoracic and lumbar spine were obtained by the technologist from a concurrently performed body CT and sent to the workstation for review. COMPARISON: No prior study is available for comparison at the time of this dictation. FINDINGS: Head: No acute intracranial hemorrhage or intra- or extra-axial fluid collections are identified. The ventricles are of normal size, shape, and morphology. The basal cisterns are patent. No mass effect or midline shift is seen. The gallagher-white matter differentiation is normal. Other than mild paranasal sinus disease, the visualized portions of the orbits, paranasal sinuses, and mastoids appear normal. Cervical spine: Small subcentimeter nodules in the thyroid gland. The alignment is normal. The prevertebral soft tissue is normal in thickness. The mineralization of the bones is normal. Vertebral bodies are normal in height without evidence of acute fracture. Other than moderate middle atlantoaxial joint osteoarthritis, the craniocervical junction appears normal. There is mild to moderate multilevel degenerative disc disease. The central canal is patent. There are varying degrees of moderate to severe multiple facet osteoarthritis. There are varying degrees of mild to moderate multilevel uncovertebral joint osteoarthritis with the same degree of neural foraminal stenosis at these levels. Thoracic spine: No soft tissue abnormality is identified. Mildly exaggerated thoracic kyphosis. Mild dextrocurvature in the thoracic spine. The mineralization of the bones is normal. Vertebral bodies are normal in height without evidence of acute fracture. There is mild multilevel degenerative disc disease. Bridging syndesmophytes and ossification of the anterior longitudinal ligament at multiple levels suggest diffuse idiopathic skeletal hyperostosis (DISH). . The central canal is patent. There are varying degrees of up to moderate facet osteoarthritis with the same degree of neural foraminal stenosis at these levels. Lumbar spine: There is atherosclerotic calcification of the abdominal aorta and its branch vessels. Postoperative changes of combined anterior and posterior spinal fusion at L3-L5 instrumentation along with L4 laminotomy. No evidence of instrumentation failure. The alignment is normal. The bones are mildly osteopenic. Vertebral bodies are normal in height without evidence of acute fracture. There is up to severe multilevel degenerative disc disease. The central canal is patent. There are varying degrees of up to severe facet osteoarthritis with the same degree of neural foraminal stenosis at these levels. Procedure Note Flaquita Toledo MD - 03/19/2025 PROCEDURE: CT HEAD WO CONTRAST, CT CERVICAL SPINE WO CONTRAST, CTTHORACIC SPINE WO CONTRAST, CT LUMBAR SPINE WO CONTRAST, DATE/TIME OF EXAM: 03/19/2025 6:48 AM, LOCATION [facility] INDICATION: Trauma ADDITIONAL CLINICAL INFORMATION: Ordering Provider Reason For Exam: Technologist Note: Additional: EXAMINATION: 1. Computed tomography (CT) of the head without contrast 2. CT of the cervical spine without contrast 3. CT of the thoracic spine without contrast 4. CT of the lumbar spine without contrast TECHNIQUE: CT of the head and cervical spine were performed without contrast according to standard protocol. Reformatted axial, sagittal,and coronal images of the thoracic and lumbar spine were obtained by the technologist from a concurrently performed body CT and sent to the workstation for review. COMPARISON: No prior study is available for comparison at the time ofthis dictation. FINDINGS: Head: No acute intracranial hemorrhage or intra- or extra-axial fluidcollections are identified. The ventricles are of normal size, shape, andmorphology. The basal cisterns are patent. No mass effect or midline shift is seen.The gallagher-white matter differentiation is normal. Other than mild paranasal sinus disease, the visualized portions of the orbits, paranasal sinuses, and mastoids appear normal. Cervical spine: Small subcentimeter nodules in the thyroid gland. The alignment is normal. The prevertebral soft tissue is normal in thickness. The mineralization of the bones is normal. Vertebral bodiesare normal in height without evidence of acute fracture. Other than moderate middle atlantoaxial joint osteoarthritis, the craniocervical junction appears normal. There is mild to moderate multilevel degenerative disc disease. The central canal is patent. There are varying degrees ofmoderate to severe multiple facet osteoarthritis. There are varying degrees ofmild to moderate multilevel uncovertebral joint osteoarthritis with the same degree of neural foraminal stenosis at these levels. Thoracic spine: No soft tissue abnormality is identified. Mildly exaggerated thoracic kyphosis. Mild dextrocurvature in thethoracic spine. The mineralization of the bones is normal. Vertebral bodies are normal in height without evidence of acute fracture. There is mild multilevel degenerative disc disease. Bridging syndesmophytes and ossification of the anterior longitudinal ligament at multiple levels suggest diffuse idiopathic skeletal hyperostosis (DISH). . The central canal is patent. There are varying degrees of up to moderate facet osteoarthritis with the same degree of neural foraminal stenosis atthese levels. Lumbar spine: There is atherosclerotic calcification of the abdominal aorta and its branch vessels. Postoperative changes of combined anterior and posterior spinal fusionat L3-L5 instrumentation along with L4 laminotomy. No evidence of instrumentation failure. The alignment is normal. The bones are mildly osteopenic. Vertebralbodies are normal in height without evidence of acute fracture. There is up to severe multilevel degenerative disc disease. The central canal ispatent. There are varying degrees of up to severe facet osteoarthritis with the same degree of neural foraminal stenosis at these levels. IMPRESSION: 1. No acute intracranial process. 2. No evidence of acute fracture in the cervical, thoracic, or lumbar spine. 3. Multiple chronic findings as detailed in the report. > Interpreting Provider: Flaquita Toledo MD on 03/19/2025 11:41 AM us Barbara Washington MD CT ORDERABLES Final Result * CT HEAD WO CONTRAST - Head Trauma, CSF leak, mental status changes (03/19/2025 6:46 AM CDT) Anatomical Region Laterality Modality Head Computed Tomogra phy 03/19/2025 11:2 4 AM CDT Impressions 03/19/2025 11:41 AM CDT IMPRESSION: 1. No acute intracranial process. 2. No evidence of acute fracture in the cervical, thoracic, or lumbar spine. 3. Multiple chronic findings as detailed in the report. > Interpreting Provider: Flaquita Toledo MD on 03/19/2025 11:41 AM Narrative 03/19/2025 11:41 AM CDT PROCEDURE: CT HEAD WO CONTRAST, CT CERVICAL SPINE WO CONTRAST, CT THORACIC SPINE WO CONTRAST, CT LUMBAR SPINE WO CONTRAST, DATE/TIME OF EXAM: 03/19/2025 6:48 AM, LOCATION [facility] INDICATION: Trauma ADDITIONAL CLINICAL INFORMATION: Ordering Provider Reason For Exam: Technologist Note: Additional: EXAMINATION: 1. Computed tomography (CT) of the head without contrast 2. CT of the cervical spine without contrast 3. CT of the thoracic spine without contrast 4. CT of the lumbar spine without contrast TECHNIQUE: CT of the head and cervical spine were performed without contrast according to standard protocol. Reformatted axial, sagittal, and coronal images of the thoracic and lumbar spine were obtained by the technologist from a concurrently performed body CT and sent to the workstation for review. COMPARISON: No prior study is available for comparison at the time of this dictation. FINDINGS: Head: No acute intracranial hemorrhage or intra- or extra-axial fluid collections are identified. The ventricles are of normal size, shape, and morphology. The basal cisterns are patent. No mass effect or midline shift is seen. The gallagher-white matter differentiation is normal. Other than mild paranasal sinus disease, the visualized portions of the orbits, paranasal sinuses, and mastoids appear normal. Cervical spine: Small subcentimeter nodules in the thyroid gland. The alignment is normal. The prevertebral soft tissue is normal in thickness. The mineralization of the bones is normal. Vertebral bodies are normal in height without evidence of acute fracture. Other than moderate middle atlantoaxial joint osteoarthritis, the craniocervical junction appears normal. There is mild to moderate multilevel degenerative disc disease. The central canal is patent. There are varying degrees of moderate to severe multiple facet osteoarthritis. There are varying degrees of mild to moderate multilevel uncovertebral joint osteoarthritis with the same degree of neural foraminal stenosis at these levels. Thoracic spine: No soft tissue abnormality is identified. Mildly exaggerated thoracic kyphosis. Mild dextrocurvature in the thoracic spine. The mineralization of the bones is normal. Vertebral bodies are normal in height without evidence of acute fracture. There is mild multilevel degenerative disc disease. Bridging syndesmophytes and ossification of the anterior longitudinal ligament at multiple levels suggest diffuse idiopathic skeletal hyperostosis (DISH). . The central canal is patent. There are varying degrees of up to moderate facet osteoarthritis with the same degree of neural foraminal stenosis at these levels. Lumbar spine: There is atherosclerotic calcification of the abdominal aorta and its branch vessels. Postoperative changes of combined anterior and posterior spinal fusion at L3-L5 instrumentation along with L4 laminotomy. No evidence of instrumentation failure. The alignment is normal. The bones are mildly osteopenic. Vertebral bodies are normal in height without evidence of acute fracture. There is up to severe multilevel degenerative disc disease. The central canal is patent. There are varying degrees of up to severe facet osteoarthritis with the same degree of neural foraminal stenosis at these levels. Procedure Note Flaquita Toledo MD - 03/19/2025 PROCEDURE: CT HEAD WO CONTRAST, CT CERVICAL SPINE WO CONTRAST, CTTHORACIC SPINE WO CONTRAST, CT LUMBAR SPINE WO CONTRAST, DATE/TIME OF EXAM: 03/19/2025 6:48 AM, LOCATION [facility] INDICATION: Trauma ADDITIONAL CLINICAL INFORMATION: Ordering Provider Reason For Exam: Technologist Note: Additional: EXAMINATION: 1. Computed tomography (CT) of the head without contrast 2. CT of the cervical spine without contrast 3. CT of the thoracic spine without contrast 4. CT of the lumbar spine without contrast TECHNIQUE: CT of the head and cervical spine were performed without contrast according to standard protocol. Reformatted axial, sagittal,and coronal images of the thoracic and lumbar spine were obtained by the technologist from a concurrently performed body CT and sent to the workstation for review. COMPARISON: No prior study is available for comparison at the time ofthis dictation. FINDINGS: Head: No acute intracranial hemorrhage or intra- or extra-axial fluidcollections are identified. The ventricles are of normal size, shape, andmorphology. The basal cisterns are patent. No mass effect or midline shift is seen.The gallagher-white matter differentiation is normal. Other than mild paranasal sinus disease, the visualized portions of the orbits, paranasal sinuses, and mastoids appear normal. Cervical spine: Small subcentimeter nodules in the thyroid gland. The alignment is normal. The prevertebral soft tissue is normal in thickness. The mineralization of the bones is normal. Vertebral bodiesare normal in height without evidence of acute fracture. Other than moderate middle atlantoaxial joint osteoarthritis, the craniocervical junction appears normal. There is mild to moderate multilevel degenerative disc disease. The central canal is patent. There are varying degrees ofmoderate to severe multiple facet osteoarthritis. There are varying degrees ofmild to moderate multilevel uncovertebral joint osteoarthritis with the same degree of neural foraminal stenosis at these levels. Thoracic spine: No soft tissue abnormality is identified. Mildly exaggerated thoracic kyphosis. Mild dextrocurvature in thethoracic spine. The mineralization of the bones is normal. Vertebral bodies are normal in height without evidence of acute fracture. There is mild multilevel degenerative disc disease. Bridging syndesmophytes and ossification of the anterior longitudinal ligament at multiple levels suggest diffuse idiopathic skeletal hyperostosis (DISH). . The central canal is patent. There are varying degrees of up to moderate facet osteoarthritis with the same degree of neural foraminal stenosis atthese levels. Lumbar spine: There is atherosclerotic calcification of the abdominal aorta and its branch vessels. Postoperative changes of combined anterior and posterior spinal fusionat L3-L5 instrumentation along with L4 laminotomy. No evidence of instrumentation failure. The alignment is normal. The bones are mildly osteopenic. Vertebralbodies are normal in height without evidence of acute fracture. There is up to severe multilevel degenerative disc disease. The central canal ispatent. There are varying degrees of up to severe facet osteoarthritis with the same degree of neural foraminal stenosis at these levels. IMPRESSION: 1. No acute intracranial process. 2. No evidence of acute fracture in the cervical, thoracic, or lumbar spine. 3. Multiple chronic findings as detailed in the report. > Interpreting Provider: Flaquita Toledo MD on 03/19/2025 11:41 AM us Barbara Washington MD CT ORDERABLES Final Result * XR Femur Left 2Vw (03/19/2025 5:32 AM CDT) Anatomical Region Laterality Modality Lower Extremity Digital Radiogra phy 03/19/2025 6:41 AM CDT Narrative 03/19/2025 8:22 AM CDT PROCEDURE: XR FEMUR LEFT 2VW, DATE/TIME OF EXAM: 03/19/2025 5:32 AM, LOCATION [facility] INDICATION: W19.XXXA: Fall, initial encounter ADDITIONAL CLINICAL INFORMATION: Ordering Provider Reason For Exam: trauma COMPARISON: None. FINDINGS/impression: Acute comminuted intertrochanteric fracture of left femur. Mild lateral displacement of femoral shaft. Adjacent soft tissue swelling. The joint alignment is preserved. Bone density and texture are normal. Report dictated by John Rodriguez MD, MD (university president). Neris Thompson MD have personally reviewed and interpreted this examination/study. > Interpreting Provider: Neris Chua MD on 03/19/2025 8:22 AM Procedure Note Neris Chua MD - 03/19/2025 PROCEDURE: XR FEMUR LEFT 2VW, DATE/TIME OF EXAM: 03/19/2025 5:32 AM, LOCATION [facility] INDICATION: W19.XXXA: Fall, initial encounter ADDITIONAL CLINICAL INFORMATION: Ordering Provider Reason For Exam: trauma COMPARISON: None. FINDINGS/impression: Acute comminuted intertrochanteric fracture of left femur. Mild lateral displacement of femoral shaft. Adjacent soft tissue swelling. The joint alignment is preserved. Bone density and texture are normal. Report dictated by John Rodriguez MD, MD (university president). Neris Thompson MD have personally reviewed and interpreted this examination/study. > Interpreting Provider: Neris Chua MD on 03/19/2025 8:22AM Result [facility] Barbara Washington MD DIAGNOSTIC IMAGING ORDERABLES Fi nal Result * PT-INR [facility] (03/19/2025 4:10 AM CDT) [facility] PT 14.6 12.1 - 14.8 Seconds 03/19/2025 4:43 AM CDT [facility] INR 1.2 See Comment 03/19/2025 4:43 AM CDT [facility] Comment:The suggested therap eutic range for standard coumadin (warfarin) therapy is an INR of 2.0-3.0. For high-risk patients (Mechanical Mitral Valve Prosthesis, etc.), the suggested prophylactic therapeutic range is an INR of 2.5-3.5. Blood BLOOD SPECIMEN / Unknown Venipuncture / Unknown 03/19/2025 4:10 AM CDT 03/19/2025 4:18 AM CDT Result [facility] Barbara Washington MD LAB - COAGULATION ORDERABLES Fin al Result Performing Organization Address City/[facility]/ZIP Co de Phone Number [facility] [address] [place] [id number], [place] [phone] * TYPE + SCREEN PANEL (03/19/2025 4:10 AM CDT) [facility] Antibody Screen NEG 5:07 AM CDT [facility] ABO Rh O NEG 03/19/2025 5:07 AM CDT [facility] Blood Bank BLOOD SPECIMEN / Unknown Venipuncture / Unknown 03/19/2025 4:10 AM CDT 03/19/2025 4:14 AM CDT Result [facility] Barbara Washington MD LAB - BLOOD BANK ORDERABLES Edit ed Result - Final Performing Organization Address City/[facility]/ZIP Co de Phone Number [facility] [address] [place] [phone], [place] [phone] * (ABNORMAL) CBC W AUTO DIFFERENTIAL (03/19/2025 4:10 AM CDT) WBC 12.6(H) 4.0 - 10.7 x10E9/L 03/19/2025 4:26 AM [facility] RBC Count 3.16(L) 3.90 - 5.20 x10E12/L 03/19/2025 4:26 AM [facility] Hemoglobin 9.7(L) 11.9 - 15.8 g/dL 03/19/2025 4:26 AM [facility] Hematocrit 29.2(L) 34.8 - 46.1 % 03/19/2025 4:26 AM [facility] MCV 92.4 80.0 - 98.0 fL 03/19/2025 4:26 AM [facility] MCH 30.7 26.7 - 33.6 pg 03/19/2025 4:26 AM [facility] MCHC 33.2 31.7 - 36.3 g/dL 03/19/2025 4:26 AM [facility] RDW-CV 13.8 11.3 - 14.8 % 03/19/2025 4:26 AM [facility] Platelet Count 199 150 - 420 x10E9/L 03/19/2025 4:26 AM [facility] MPV 12.3(H) 7.8 - 11.4 fL 03/19/2025 4:26 AM [facility] Neutrophil % 85.3(H) 41.0 - 74.0 % 03/19/2025 4:26 AM [facility] Lymphocyte % 7.8(L) 17.0 - 47.0 % 03/19/2025 4:26 AM [facility] Monocyte % 5.2 3.0 - 11.0 % 03/19/2025 4:26 AM [facility] Eosinophil % 0.9 0.0 - 7.0 % 03/19/2025 4:26 AM [facility] Basophil % 0.3 0.0 - 1.6 % 03/19/2025 4:26 AM [facility] Immature Granulocytes % 0.5 0.0 - 1.0 % 03/19/2025 4:26 AM [facility] Neutrophil Absolute 10.76(H) 1.60 - 7.50 x10E9/L 03/19/2025 4:26 AM [facility] Lymphocyte Absolute 0.99(L) 1.00 - 4.40 x10E9/L 03/19/2025 4:26 AM [facility] Monocyte Absolute 0.66 0.15 - 1.00 x10E9/L 03/19/2025 4:26 AM [facility] Eosinophil Absolute 0.11 0.00 - 0.60 x10E9/L 03/19/2025 4:26 AM [facility] Basophil Absolute 0.04 0.00 - 0.13 x10E9/L 03/19/2025 4:26 AM [facility] Blood BLOOD SPECIMEN / Unknown Venipuncture / Unknown 03/19/2025 4:10 AM CDT 03/19/2025 4:18 AM T us Barbara Washington MD LAB - HEMATOLOGY ORDERABLES Cathi cordoba Result [facility] [address] [place] [address], [facility] [phone] * (ABNORMAL) COMPREHENSIVE METABOLIC PANEL (03/19/2025 4:10 AM CDT) BUN 10 7 - 26 mg/dL 03/19/2025 4:46 AM [facility] Creatinine 0.52(L) 0.56 - 0.96 mg/dL 03/19/2025 4:46 AM [facility] Sodium 143 136 - 145 mmol/L 03/19/2025 4:46 AM [facility] Potassium 3.3(L) 3.5 - 4.5 mmol/L 03/19/2025 4:46 AM [facility] Chloride 104 98 - 107 mmol/L 03/19/2025 4:46 AM [facility] CO2 27 22 - 29 mmol/L 03/19/2025 4:46 AM [facility] Glucose 105(H) 70 - 99 mg/dL 03/19/2025 4:46 AM [facility] Calcium 8.7 8.4 - 10.2 mg/dL 03/19/2025 4:46 AM [facility] Protein Total 6.0 6.0 - 8.3 g/dL 03/19/2025 4:46 AM [facility] Albumin 3.5 3.4 - 5.0 g/dL 03/19/2025 4:46 AM [facility] Bilirubin Total 0.4 0.2 - 1.2 mg/dL 03/19/2025 4:46 AM [facility] Alkaline Phosphatase 76 40 - 150 U/L 03/19/2025 4:46 AM [facility] ALT 33 5 - 55 U/L 03/19/2025 4:46 AM [facility] AST 27 5 - 34 U/L 03/19/2025 4:46 AM [facility] Anion Gap 12 6 - 16 03/19/2025 4:46 AM [facility] BUN/Creatinine Ratio 19 7 - 23 03/19/2025 4:46 AM [facility] Osmolality Calculated 295 275 - 295 mOsm/kg 03/19/2025 4:46 AM [facility] Albumin/Globulin Ratio 1.4 1.1 - 2.3 03/19/2025 4:46 AM [facility] eGFR by CKD-EPI >90 >=90 mL/min/1.7 3 m2 03/19/2025 4:46 AM [facility] Blood BLOOD SPECIMEN / Unknown Venipuncture / Unknown 03/19/2025 4:10 AM CDT 03/19/2025 4:18 AM CDT us Barbara Washington MD LAB - CHEMISTRY ORDERABLES Final Result [facility] [address] [place] [id number], [facility] [phone] * XR Ankle Left 3Vw or More (03/19/2025 2:48 AM CDT) Anatomical Region Laterality Modality Lower Extremity Digital Radiogra phy 03/19/2025 3:34 AM CDT Impressions 03/19/2025 8:22 AM CDT IMPRESSION: No fracture or dislocation. Report dictated by John Rodriguez MD, MD (university president). INeris MD have personally reviewed and interpreted this examination/study. > Interpreting Provider: Neris Chua MD on 03/19/2025 8:22 AM Narrative 03/19/2025 8:22 AM CDT PROCEDURE: XR FOOT LEFT 3VW OR MORE, XR ANKLE LEFT 3VW OR MORE, DATE/TIME OF EXAM: 03/19/2025 3:01 AM, LOCATION [facility] INDICATION: W19.XXXA: Fall, initial encounter ADDITIONAL CLINICAL INFORMATION: Ordering Provider Reason For Exam: trauma COMPARISON: None. FINDINGS: Left ankle: There is no fracture or osseous abnormality. The joint alignment, including the tibiotalar articulation, is normal. The soft tissues are normal without evidence of joint effusion. Arthritic changes present. Left foot: There is no fracture or osseous abnormality. Contour abnormality at the midsuperior aspect of calcaneus on the lateral view likely chronic changes. The joint alignment is normal. The soft tissues are normal. Arthritic changes present. Procedure Note Neris Chua MD - 03/19/2025 PROCEDURE: XR FOOT LEFT 3VW OR MORE, XR ANKLE LEFT 3VW OR MORE,DATE/TIME OF EXAM: 03/19/2025 3:01 AM, LOCATION [facility] INDICATION: W19.XXXA: Fall, initial encounter ADDITIONAL CLINICAL INFORMATION: Ordering Provider Reason For Exam: trauma COMPARISON: None. FINDINGS: Left ankle: There is no fracture or osseous abnormality. The joint alignment, including the tibiotalar articulation, is normal. The soft tissues are normal without evidence of joint effusion. Arthritic changes present. Left foot: There is no fracture or osseous abnormality. Contour abnormality at the midsuperior aspect of calcaneus on the lateral view likely chronicchanges. The joint alignment is normal. The soft tissues are normal. Arthritic changes present. IMPRESSION: No fracture or dislocation. Report dictated by John Rodriguez MD, MD (university president). Neris Thompson MD have personally reviewed and interpreted this examination/study. > Interpreting Provider: Neris Chua MD on 03/19/2025 8:22AM us Barbara Washington MD DIAGNOSTIC IMAGING ORDERABLES Fi nal Result * XR Foot Left 3Vw or More (03/19/2025 2:35 AM CDT) Anatomical Region Laterality Modality Ankle / Foot Digital Radiogra phy 03/19/2025 3:34 AM CDT Impressions 03/19/2025 8:22 AM CDT IMPRESSION: No fracture or dislocation. Report dictated by John Rodriguez MD, MD (university president). Neris Thompson MD have personally reviewed and interpreted this examination/study. > Interpreting Provider: Neris Chua MD on 03/19/2025 8:22 AM Narrative 03/19/2025 8:22 AM CDT PROCEDURE: XR FOOT LEFT 3VW OR MORE, XR ANKLE LEFT 3VW OR MORE, DATE/TIME OF EXAM: 03/19/2025 3:01 AM, LOCATION [facility] INDICATION: W19.XXXA: Fall, initial encounter ADDITIONAL CLINICAL INFORMATION: Ordering Provider Reason For Exam: trauma COMPARISON: None. FINDINGS: Left ankle: There is no fracture or osseous abnormality. The joint alignment, including the tibiotalar articulation, is normal. The soft tissues are normal without evidence of joint effusion. Arthritic changes present. Left foot: There is no fracture or osseous abnormality. Contour abnormality at the midsuperior aspect of calcaneus on the lateral view likely chronic changes. The joint alignment is normal. The soft tissues are normal. Arthritic changes present. Procedure Note Neris Chua MD - 03/19/2025 PROCEDURE: XR FOOT LEFT 3VW OR MORE, XR ANKLE LEFT 3VW OR MORE,DATE/TIME OF EXAM: 03/19/2025 3:01 AM, [facility] INDICATION: W19.XXXA: Fall, initial encounter ADDITIONAL CLINICAL INFORMATION: Ordering Provider Reason For Exam: trauma COMPARISON: None. FINDINGS: Left ankle: There is no fracture or osseous abnormality. The joint alignment, including the tibiotalar articulation, is normal. The soft tissues are normal without evidence of joint effusion. Arthritic changes present. Left foot: There is no fracture or osseous abnormality. Contour abnormality at the midsuperior aspect of calcaneus on the lateral view likely chronicchanges. The joint alignment is normal. The soft tissues are normal. Arthritic changes present. IMPRESSION: No fracture or dislocation. Report dictated by John Rodriguez MD, MD (university president). I, Neris Chua MD have personally reviewed and interpreted this examination/study. > Interpreting Provider: Neris Chua MD on 03/19/2025 8:22AM Barbara Washington MD DIAGNOSTIC IMAGING ORDERABLES Fi nal Result from Last 3 Months Insurance [employer] [facility] MANAGED MEDICARE ADV [facility] MANAGED MEDICARE ADV Advance Directives * Full Code (Latest Code Status on File) Date Activated Date Inactivated Comments 03/19/2025 10:29 AM 03/23/2025 11:59 PM Care Teams Resource Technician Relationship Specialty Start Date End Date Jhonathan Doss MD [address] [facility] [address] [place] [id number] PCP - General 11/05/21
--- OUTSIDE RECORDS SUMMARY | 2025-05-19 15:28 | XMS_ITS | Patient Health Record ---
Author Organization [facility] Address [address] [place] [address] Care Team Providers Care Char Con[employer]or [employer] Cellar Name Role Phone OsborneVladimir Unavailable [phone] Deuce Viera Unavailable [phone] Allergies Allergen (clinical drug ingredient) Drug/Non Drug Allergy documented on EMR Reaction Allergy Type Onset Date Status Non-steroidal anti-inflammatory agent (FN) NSAIDS (uncoded) diarrhea, stomach cramps Allergy Active Sulfa Unknown Drug Allergy Active Reason For Referral Reason Finding of elevated blood pressure, ref sent to PCP Diagnosis 1 Radiculopathy, lumbo sacral region (M54.17) Diagnosis 2 Elevated blood-press ure reading, without diagnosis of hypertension (R03.0) Referral Organization [facility] Referring Provider First Name Deuce Referring Provider Last Name Aylin Referring Provider Speciality Pain Medic ine Referred Provider Specialty General prac titioner Referral Priority Routine Medications Medication SIG (Take, Route, Frequency, Duration) Notes Start Date End Date Status Cyclobenzaprine HCl Active Olmesartan Medoxomil-HCTZ Active predniSONE Active Folic Acid 1 MG Acti ve Escitalopram Oxalate Active Benicar HCT 20-12.5 MG Active Gabapentin 300 MG TAKE 2 CAPSULES BY M OUTH 3 TIMES DAILY; Duration: 80 Active Potassium Chloride ER Active Metoprolol Succinate Active Leflunomide Active Klor-Con 10 10 MEQ A ctive oxyCODONE HCl 10 MG 1 tablet as needed Orally every 4-6 hrs prn pain, max of 5 tablets per day; Duration: 30 days 04/28/2025 05/28/2025 Active Social History Tobacco Use: Social History Observation Description Date Details (start date - stop date) Never Smoker NA - NA Tobacco Use/Smoking Question Answer Notes Are you a nonsmoker Alcohol Screen (Audit-C) Question Answer Notes Did you have a drink containing alcohol in the p ast year? No Points 0 Interpretation Negative Problems Problem Type SNOMED Code ICD Code Onset Dates Problem Status W/U Status Risk Notes Problem Fear of medical treatment (660058563) Fear of injections and transfusions (F40.231) Active confirmed Problem Essential hypertension (20039483) Essential (primary) hypertension (I10) Active confirmed Problem Rheumatoid arthritis (78910192) Rheumatoid arthritis, unspecified (M06.9) Active confirmed Problem Osteoarthritis of knee (631645445) Unilateral primary osteoarthritis, left knee (M17.12) Active confirmed Problem Localized, primary osteoarthritis of the shoulder region (137575475) Primary osteoarthritis, left shoulder (M19.012) Active confirmed Problem Solitary sacroiliitis (514371079) Sacroiliitis, not elsewhere classified (M46.1) Active confirmed Problem Lumbosacral spondylosis without myelopathy (56263685) Other spondylosis with radiculopathy, lumbosacral region (M47.27) Active confirmed Problem Lumbosacral spondylosis without myelopathy (66565769) Spondylosis without myelopathy or radiculopathy, lumbar region (M47.816) Active confirmed Problem Degeneration of lumbar intervertebral disc (20513362) Other intervertebral disc degeneration, lumbar region (M51.36) Active confirmed Problem Other intervertebral disc degeneration, lumbosacral region (M51.37) Active confirmed Problem Cervical radiculopathy (68179959) Radiculopathy, cervical region (M54.12) Active confirmed Problem Lumbar radiculopathy (522450340) Radiculopathy, lumbar region (M54.16) Active confirmed Problem Lumbosacral radiculopathy (6307785) Radiculopathy, lumbosacral region (M54.17) Active confirmed Problem Degeneration of cervical intervertebral disc (92685060) Other cervical disc degeneration, mid-cervical region, unspecified level (M50.320) Active confirmed Vital Signs Heart Rate 64 /min 04/28/2025 Temperature 96.9 degrees Fahrenheit 04/28/2025 Respiratory Rate 18 /min 04/28/2025 Blood pressure diastolic 95 mm Hg 04/28/2025 Height 62 in 04/28/2025 Blood pressure systolic 164 mm Hg 04/28/2025 Weight 130 lbs 04/28/2025 BMI 23.77 kg/m2 04/28/2025 Encounters Encounter Location Date Provider Diagnosis [facility] [address] [place] [phone] 06/23/2024 Vladimir Osborne Radiculopathy, lumbosacral region M54.17 and Radiculopathy, cervical region M54.12 [facility] [address] [place] [phone] 07/22/2024 Vladimir Osborne Radiculopathy, cervical region M54.12 ; Radiculopathy, lumbar region M54.16 ; Radiculopathy, lumbosacral region M54.17 and Rheumatoid arthritis, unspecified M06.9 [facility] [address] [place] [phone] 08/19/2024 Vladimir Osborne Radiculopathy, lumba r region M54.16 ; Radiculopathy, lumbosacral region M54.17 ; Radiculopathy, cervical region M54.12 and Rheumatoid arthritis, unspecified M06.9 [facility] [address] [place] [phone] 09/16/2024 Vladimir Osborne Radiculopathy, lumba r region M54.16 ; Radiculopathy, lumbosacral region M54.17 ; Radiculopathy, cervical region M54.12 and Rheumatoid arthritis, unspecified M06.9 [facility] [address] [place] [phone] 10/20/2024 Vladimir Osborne Radiculopathy, lumbosacral region M54.17 and Radiculopathy, cervical region M54.12 [facility] [address] [place] [phone] 11/23/2024 Vladimir Osborne Radiculopathy, lumbosacral region M54.17 and Radiculopathy, cervical region M54.12 [facility] [address] [place] [address] [place] [phone] 12/14/2024 Deuce Granberg Radiculopathy, lumbosacral region M54.17 and Radiculopathy, cervical region M54.12 [facility] [address] [place] [address] [place] [phone] 01/21/2025 Vladimir Osborne Radiculopathy, lumbosacral region M54.17 and Radiculopathy, cervical region M54.12 [facility] [address] [place] [phone] 02/22/2025 Deuce Granberg Radiculopathy, cervical region M54.12 and Radiculopathy, lumbosacral region M54.17 [facility] [address] [place] [phone] 04/28/2025 Deuce Granberg Radiculopathy, lumbosacral region M54.17 ; Radiculopathy, cervical region M54.12 and Essential (primary) hypertension I10 [facility] [address] [place] [phone] 05/25/2024 Deuce Granberg Radiculopathy, lumbosacral region M54.17 [facility] [address] [place] [phone] 11/19/2024 Vladimir Osborne Radiculopathy, lumbosacral region M54.17 [facility] [address] [place] [phone] 07/26/2024 Vladimir Osborne Radiculopathy, cervical region M54.12 [facility] [address] [place] [phone] 04/12/2025 Vladimir Osborne Radiculopathy, cervical region M54.12 Assessments Encounter Date Diagnosis (ICD Code) Assessment Notes Treatment Notes Treatment Clinical Notes Section Notes 05/25/2024 Radiculopathy, lumbosacral region (ICD-10 - M54.17) 06/23/2024 Radiculopathy, cervical region (ICD-10 - M54.12) 06/23/2024 Radiculopathy, lumbosacral region (ICD-10 - M54.17) 1. Her treatment plan includes continuing to maintain a compliant medication regimen. -Goals for her treatment plan include pain control and ability to perform activities of daily living. These goals are being met so her condition is considered stable. -She is at moderate risk of morbidity and mortality from her continued treatment plan. Risk level is determined by the following: Opioid use. 2. I am managing her prescription of oxycodone 10 mg tablets to be taken every 4-6 hours as needed for management of her chronic pain with a maximum of 5 tablets/day. Side effects include but are not limited to the following: drowsiness, confusion, nausea, constipation, euphoria, and slowed breathing. 3. She continues gabapentin for neuropathic pain. She states she does not need this medication refilled at today's appointment. 4. Continue medication regimen; no changes are made today. 5. Return to the clinic in 30 days for medication management and re-evaluation. The patient and I reviewed any opioid and non-opioid medication being taken at this time. The patient has been taking the medication as prescribed. The patient has not been having any adverse effects or side effects with use of the medication. Risks and benefits of chronic opioid use were discussed, and the patient knows to contact our office with any questions or concerns. The medication is providing the patient enough pain relief for continuation of treatment. The patient states that the medication allows increased functionality to live their life. Conservative measures have been unsuccessful in the past, but the patient is aware that alternative treatments are available. Please see a record of any medication refills under the treatment section of this note. The patient will call with any questions or concerns. Current MME/day is 75 07/22/2024 Radiculopathy, cervical region (ICD-10 - M54.12) 1. This patient's treatment plan includes adherence to a prescribed medication regimen. The goals for this treatment plan include pain control and the ability to perform activities of daily living. These goals are being met, indicating that the patient's condition is stable. 2. I am managing the prescription of oxyCODONE HCl Tablet, 10 MG, 1 tablet as needed, Orally, every 4-6 hrs prn pain, max of 5 tablets per day, 30 days, 150, Refills 0, for chronic pain management. The patient is at moderate risk of morbidity and mortality from their continued treatment plan. Risk level is determined by the following: opioid use. Side effects include but are not limited to the following: drowsiness, confusion, nausea, constipation, euphoria, and slowed breathing. 3. She continues gabapentin for neuropathic pain. She states she does not need a refill today. 4. Continue medication regimen; Changes were made today. Stop Oxycodone and restart Hydrocodone as prescribed. 5. Please schedule a follow-up appointment in 30 days for medication management and reevaluation. 6. The patient and I discussed all current opioid and non- opioid medications. The patient has been adhering to the prescribed medication regimen. The patient has not experienced any adverse reactions, or side effects from their prescribed medication. The potential risks and/or benefits of long-term opioid use were discussed with the patient and they are aware to reach out to our office with any questions or concerns. The patient states that this medication is effectively managing their pain and warrants continuation of treatment. The patient reports that the medication has improved their ability to engage in daily activities and live a more functional life. While conservative measures have not yielded positive results previously the patient acknowledges that alternative treatment options are accessible. Current MME/ day is 75 07/26/2024 Radiculopathy, cervical region (ICD-10 - M54.12) 08/19/2024 Radiculopathy, lumbar region (ICD-10 - M54.16) 1. This patient's treatment plan includes adherence to a prescribed medication regimen. The goals for this treatment plan include pain control and the ability to perform activities of daily living. These goals are being met, indicating that the patient's condition is stable.The patient is at moderate risk of morbidity and mortality from their continued treatment plan. Risk level is determined by the following: opioid use. 2. I am managing the prescription of oxyCODONE HCl Tablet, 10 MG, 1 tablet as needed, Orally, every 4-6 hrs prn pain, max of 5 tablets per day, 30 days, 150, Refills 0, for chronic pain management. Side effects include but are not limited to the following: drowsiness, confusion, nausea, constipation, euphoria, and slowed breathing. 3. She continues gabapentin for neuropathic pain. She states she does not need a refill today. 4. Continue medication regimen; Changes were made today. Stop Hydrocodone and restart Oxycodone as prescribed. 5. Please schedule a follow-up appointment in 30 days for medication management and reevaluation. 6. The patient and I discussed all current opioid and non- opioid medications. The patient has been adhering to the prescribed medication regimen. The patient has not experienced any adverse reactions, or side effects from their prescribed medication. The potential risks and/or benefits of long-term opioid use were discussed with the patient and they are aware to reach out to our office with any questions or concerns. The patient states that this medication is effectively managing their pain and warrants continuation of treatment. The patient reports that the medication has improved their ability to engage in daily activities and live a more functional life. While conservative measures have not yielded positive results previously the patient acknowledges that alternative treatment options are accessible. Current MME/ day is 75 09/16/2024 Radiculopathy, lumbar region (ICD-10 - M54.16) 1. This patient's treatment plan includes adherence to a prescribed medication regimen. The goals for this treatment plan include pain control and the ability to perform activities of daily living. These goals are being met, indicating that the patient's condition is stable. The patient is at moderate risk of morbidity and mortality from their continued treatment plan. Risk level is determined by the following: opioid use. 2. I am managing the prescription of oxyCODONE HCl Tablet, 10 MG, 1 tablet as needed, Orally, every 4-6 hrs prn pain, max of 5 tablets per day, 30 days, 150, Refills 0, for chronic pain management. Side effects include but are not limited to the following: drowsiness, confusion, nausea, constipation, euphoria, and slowed breathing. 3. She continues gabapentin for neuropathic pain. She states no refills needed today. 4. Continue medication regimen; no changes were made today. 5. Please schedule a follow-up appointment in 30 days for medication management and reevaluation. 6. The patient and I discussed all current opioid and non-opioid medications. The patient has been adhering to the prescribed medication regimen. The patient has not experienced any adverse reactions, or side effects from their prescribed medication. The potential risks and/or benefits of long-term opioid use were discussed with the patient and they are aware to reach out to our office with any questions or concerns. The patient states that this medication is effectively managing their pain and warrants continuation of treatment. The patient reports that the medication has improved their ability to engage in daily activities and live a more functional life. While conservative measures have not yielded positive results previously the patient acknowledges that alternative treatment options are accessible. Current MME/ day is 75 10/20/2024 Radiculopathy, lumbosacral region (ICD-10 - M54.17) 1. Treatment plan for her includes a compliant medication regimen. -Goals for her treatment plan include pain control and ability to perform activities of daily living. These goals are being met so her condition is considered to be stable. -She is at moderate risk of morbidity and mortality from her continued treatment plan. Risk level is determined by the following: Opioid use. 2. I am managing the prescription of oxycodone 10 mg tablets to be taken every 4-6 hours as needed for management of her chronic pain with a maximum of 5 tablets/day. Side effects include but are not limited to the following: drowsiness, confusion, nausea, constipation, euphoria, and slowed breathing. 3. She continues to take gabapentin for neuropathic pain. She does not need a refill on this medication today. 4. Continue medication regimen; no changes are made today. 5. Return to the clinic in 30 days for medication management and re-evaluation. The patient and I reviewed any opioid and non-opioid medication being taken at this time. The patient has been taking the medication as prescribed. The patient has not been having any adverse effects or side effects with use of the medication. Risks and benefits of chronic opioid use were discussed, and the patient knows to contact our office with any questions or concerns. The medication is providing the patient enough pain relief for continuation of treatment. The patient states that the medication allows increased functionality to live their life. Conservative measures have been unsuccessful in the past, but the patient is aware that alternative treatments are available. Please see a record of any medication refills under the treatment section of this note. The patient will call with any questions or concerns. Current MME/day is 75 11/19/2024 Radiculopathy, lumbosacral region (ICD-10 - M54.17) 11/23/2024 Radiculopathy, lumbosacral region (ICD-10 - M54.17) 1. This patient's treatment plan includes continuing a compliant medication regimen. -Goals for this treatment plan include pain control and ability to perform activities of daily living. These goals are being met so this patient's condition is stable. -She is at moderate risk of morbidity and mortality from her continued treatment plan. Risk level is determined by the following: Opioid use. 2. I am managing the prescription of oxycodone 10 mg tablets to be taken every 4-6 hours as needed for management of her chronic pain with a maximum of 5 tablets/day. Side effects include but are not limited to the following: drowsiness, confusion, nausea, constipation, euphoria, and slowed breathing. 3. She continues gabapentin for neuropathic pain. She states that she has medication remaining from a previous refill. 4. Continue medication regimen; no changes are made today. 5. Return to the clinic in 30 days for medication management and re-evaluation. The patient and I reviewed any opioid and non-opioid medication being taken at this time. The patient has been taking the medication as prescribed. The patient has not been having any adverse effects or side effects with use of the medication. Risks and benefits of chronic opioid use were discussed, and the patient knows to contact our office with any questions or concerns. The medication is providing the patient enough pain relief for continuation of treatment. The patient states that the medication allows increased functionality to live their life. Conservative measures have been unsuccessful in the past, but the patient is aware that alternative treatments are available. Please see a record of any medication refills under the treatment section of this note. The patient will call with any questions or concerns. Current MME/day is 75 12/14/2024 Radiculopathy, lumbosacral region (ICD-10 - M54.17) 1. Treatment plan for her includes continuing to maintain a compliant medication regimen. -Goals for her treatment plan include pain control and ability to perform activities of daily living. These goals are being met so her condition is considered stable. -She is at moderate risk of morbidity and mortality from her continued treatment plan. Risk level is determined by the following: Opioid use. 2. I am managing the prescription of oxycodone 10 mg tablets to be taken every 4-6 hours as needed for management of her chronic pain with a maximum of 5 tablets/day. Side effects include but are not limited to the following: drowsiness, confusion, nausea, constipation, euphoria, and slowed breathing. She is early for her refill today but will note to the pharmacist that it is okay to fill since she is leaving town. She will then follow-up in 5 weeks. 3. She continues gabapentin for neuropathic pain. She states that she does not need this refilled today. 4. Continue medication regimen; no changes are made today. 5. Return to the clinic in 5 weeks for medication management and re-evaluation. The patient and I reviewed any opioid and non-opioid medication being taken at this time. The patient has been taking the medication as prescribed. The patient has not been having any adverse effects or side effects with use of the medication. Risks and benefits of chronic opioid use were discussed, and the patient knows to contact our office with any questions or concerns. The medication is providing the patient enough pain relief for continuation of treatment. The patient states that the medication allows increased functionality to live their life. Conservative measures have been unsuccessful in the past, but the patient is aware that alternative treatments are available. Please see a record of any medication refills under the treatment section of this note. The patient will call with any questions or concerns. Current MME/day is 75 01/21/2025 Radiculopathy, lumbosacral region (ICD-10 - M54.17) 1. This patient's treatment plan includes a compliant medication regimen. -Goals for this treatment plan include pain control and ability to perform activities of daily living. These goals are being met so this patient's condition is considered to be stable. -She is at moderate risk of morbidity and mortality from her continued treatment plan. Risk level is determined by the following: Opioid use. 2. I am managing the prescription of oxycodone 10 mg tablets to be taken every 4-6 hours as needed for management of her chronic pain with a maximum of 5 tablets/day. Side effects include but are not limited to the following: drowsiness, confusion, nausea, constipation, euphoria, and slowed breathing. 3. She continues to take gabapentin for neuropathic pain. She states that she does not need a refill on this medication at today's appointment. 4. Continue medication regimen; no changes are made today. 5. Obtain MRI of the lumbar spine due to an increase in lumbar radiculopathy status post fall and increased activity. The last imaging of her lumbar spine was in 2016. She also has a history of a lumbar fusion in 2011. 6. Return to the clinic in 30 days for medication management and re-evaluation. If she is able to obtain the MRI of her lumbar spine and her right lumbar radiculopathy pain does not improve, she may call to change her appointment to an interventional injection with Dr. Osborne pending MRI results. The patient and I reviewed any opioid and non-opioid medication being taken at this time. The patient has been taking the medication as prescribed. The patient has not been having any adverse effects or side effects with use of the medication. Risks and benefits of chronic opioid use were discussed, and the patient knows to contact our office with any questions or concerns. The medication is providing the patient enough pain relief for continuation of treatment. The patient states that the medication allows increased functionality to live their life. Conservative measures have been unsuccessful in the past, but the patient is aware that alternative treatments are available. Please see a record of any medication refills under the treatment section of this note. The patient will call with any questions or concerns. Current MME/day is 75 02/22/2025 Radiculopathy, cervical region (ICD-10 - M54.12) 1. Treatment plan for her includes continuing a compliant medication regimen. -Goals for her treatment plan include pain control and ability to perform activities of daily living. These goals are being met so her condition is stable. -She is at moderate risk of morbidity and mortality from her continued treatment plan. Risk level is determined by the following: Opioid use. 2. I am managing the prescription of oxycodone 10 mg tablets to be taken every 4-6 hours as needed for management of her chronic pain with a maximum of 5 tablets/day. Side effects include but are not limited to the following: drowsiness, confusion, nausea, constipation, euphoria, and slowed breathing. 3. She continues gabapentin for neuropathic pain. She states that she does not need a refill on this medication today. 4. Continue medication regimen; no changes are made today. 5. Return to the clinic in 30 days for lumbar interventional injection with Dr. Osborne, medication management and re-evaluation. Her last lumbar injection was in December 2019. She does have a recent MRI of her lumbar spine which we reviewed at today's appointment. The patient and I reviewed any opioid and non-opioid medication being taken at this time. The patient has been taking the medication as prescribed. The patient has not been having any adverse effects or side effects with use of the medication. Risks and benefits of chronic opioid use were discussed, and the patient knows to contact our office with any questions or concerns. The medication is providing the patient enough pain relief for continuation of treatment. The patient states that the medication allows increased functionality to live their life. Conservative measures have been unsuccessful in the past, but the patient is aware that alternative treatments are available. Please see a record of any medication refills under the treatment section of this note. The patient will call with any questions or concerns. Current MME/day is 75 04/12/2025 Radiculopathy, cervical region (ICD-10 - M54.12) 04/28/2025 Radiculopathy, lumbosacral region (ICD-10 - M54.17) 1. This patient's treatment plan includes continuing to maintain a compliant medication regimen. -Goals for this treatment plan include pain control and ability to perform activities of daily living. These goals are being met so this patient's condition is considered stable. -She is at moderate risk of morbidity and mortality from her continued treatment plan. Risk level is determined by the following: Opioid use. 2. I am managing the prescription of oxycodone 10 mg tablets to be taken every 4-6 hours as needed for management of her chronic pain with a maximum of 5 tablets/day. Side effects include but are not limited to the following: drowsiness, confusion, nausea, constipation, euphoria, and slowed breathing. 3. She continues to take gabapentin for neuropathic pain. She states that she does not need a refill on this medication today. 4. Continue medication regimen; no changes are made today. 5. Return to the clinic in 30 days for medication management and re-evaluation. The patient and I reviewed any opioid and non-opioid medication being taken at this time. The patient has been taking the medication as prescribed. The patient has not been having any adverse effects or side effects with use of the medication. Risks and benefits of chronic opioid use were discussed, and the patient knows to contact our office with any questions or concerns. The medication is providing the patient enough pain relief for continuation of treatment. The patient states that the medication allows increased functionality to live their life. Conservative measures have been unsuccessful in the past, but the patient is aware that alternative treatments are available. Please see a record of any medication refills under the treatment section of this note. The patient will call with any questions or concerns. Current MME/day is 75 04/28/2025 Radiculopathy, cervical region (ICD-10 - M54.12) 02/22/2025 Radiculopathy, lumbosacral region (ICD-10 - M54.17) 01/21/2025 Radiculopathy, cervical region (ICD-10 - M54.12) 12/14/2024 Radiculopathy, cervical region (ICD-10 - M54.12) 11/23/2024 Radiculopathy, cervical region (ICD-10 - M54.12) 09/16/2024 Radiculopathy, lumbosacral region (ICD-10 - M54.17) 10/20/2024 Radiculopathy, cervical region (ICD-10 - M54.12) 08/19/2024 Radiculopathy, lumbosacral region (ICD-10 - M54.17) 07/22/2024 Radiculopathy, lumbar region (ICD-10 - M54.16) 07/22/2024 Radiculopathy, lumbosacral region (ICD-10 - M54.17) 08/19/2024 Radiculopathy, cervical region (ICD-10 - M54.12) 09/16/2024 Radiculopathy, cervical region (ICD-10 - M54.12) 04/28/2025 Essential (primary) hypertension (ICD-10 - I10) Her blood pressure is elevated at today's appointment. Encouraged her to follow up with her primary care provider and to monitor her blood pressure at home 09/16/2024 Rheumatoid arthritis, unspecified (ICD-10 - M06.9) 08/19/2024 Rheumatoid arthritis, unspecified (ICD-10 - M06.9) 07/22/2024 Rheumatoid arthritis, unspecified (ICD-10 - M06.9) Plan Of Treatment Pending Test Test Name Order Date MRI : Cervical without Contrast 09/01/20 MRI : Lumbar with and without Contrast 0 01/21/2025 MRI : Thoracic without Contrast 09/01/20 Next Appt Details Provider Name:Deuce Brooks al, 05/26/2025 03:00:00 PM, [address] [facility], [address], [place], [address], Insurance Providers Payer Name Payer Address Payer Phone Subscriber Number Group Number Insured Name Patient Relationship to Insured Coverage Start Date Coverage End Date [facility] Medicare Complete [address] [address] [place], [place] [id number] [phone] [id number] Briseida Huff Self - patient is the insured Medical (General) History Medical History History ICD Code high blood pressure osteoarthritis rheumatoid arthritis fibromyalgia urinary incontinence irritable bowel syndrome anxiety diabetes mellitus type II Other cervical disc degeneration, mid-ce rvical region thyroid failure Surgical History Surgery Date(Month/Year) Breast reduction 2001 appendectomy 1989 cholecystectomy 2002 carpal tunnel release right hand 2004 hysterectomy 1994 L3-L5 lumbar fusion 2012 Right Knee Replacement 08/2017 Gastric Bypass 04/16/2022 carpal tunnel release left hand 2023 Lt hip pinning 03/21/2025
--- OUTSIDE RECORDS SUMMARY | 2025-05-19 15:28 | XMS_ITS ---
Author Organization [facility] Address [address] [place] [id number] Care Team Providers Care Silk Screen Operator Name Role Phone Vladimir Osborne [phone] REASON FOR VISIT BACK PAIN Encounters Encounter Location Date Provider Diagnosis [facility] [address] [facility] [address] [place] [address] 03/23/2025 Vladimir Osborne Plan Of Treatment Next Appt Details Provider Name:Deuce Brooks erg, 05/26/2025 03:00:00 PM, [address] [facility], [address], [place], [address], Progress Notes * Briseida HUFF: [birth year] (65 yo F)Acc No.[id number]*DOS:03/23/2025 Patient: Madeline RYDERBriseida OLSENKapil * Provider: Deric Osborne MD :1960 A ge:65 Y S ex:Female Date:03/23/2025 Address:[address] [place] [address], [place] [address] Subjective: * Chief Complaints: * 1 . BACK PAIN. * Medical History: Objective: * Vitals: Assessment: Plan: * Treatment: * * Electronic signature of Juan Osborne MD on 05/19/2025 at 03:27 PM CDT Sign off status: Pending * Provider: Deric Osborne MD Date: 03/23/2025 Generated for Vincent alvarenga/Henry/Nikkysmitting on: 05/19/2025 03:27 PM CDT
--- OUTSIDE RECORDS SUMMARY | 2025-05-19 15:29 | XMS_ITS | Data Portability ---
Author Organization [place] [facility], Main Office Address [address] [place] [address] Care Team Providers Care Turntable Engineer Name Role Phone BARB DOSS Primary Care Provider [phone] BARB DOSS Referring Provider [phone] BAL CAPONE Mechanical And Auto Body Car Checker MONTSERRAT WHEAT Orthopedist JCARLOS CORONA Glass Wool Blanket Machine Feeder Assessment Encounter Date Assessment Date Assessment LastModified by Organization Details LastModified Time 09/06/2024 09/06/2024 Assessment: Severe OSAHS, AHI = 40 Plan: The following were reviewed and explained to the patient: [facility] home sleep study 04/02/17 AHI = 40 [facility] titration sleep study 05/19/24, sleep onset = 22 minutes, REM onset = 213.5 minutes, Respironics small DreamWear full face mask @ 7-11 cmH2O, PLMI = 0.0 PAP compliance downloaded and interpreted x 20 minutes. Data reviewed and explained to the patient. Average apnea/hypopnea index (AHI) is 7.7. Patient used PAP > 4 hours 70% of the time. PAP is set at 4-20 cmH2O. PAP will be reset at 6-14 cmH2O. Keep ramp off. Keep EPR +1. Keep humidifier level on automatic mode. Keep tube temperature on automatic mode. Oxygen supplementation: none Patient is benefiting from PAP therapy. Encouraged patient to maintain PAP use more than 70% of the time. Statement of PAP use and benefits will be sent to the home care store. Add chin strap for use with nasal mask in case she doesn't like the full face mask. Educated the patient on problems and solutions associated with positive airway pressure (PAP) use. Difficulty tolerating pressure, mask leaks, intolerance of interface, nasal congestion, claustrophobic response, dry mouth, and unintentional mask removal during sleep were covered. Patient has some difficulty tolerating pressure. Patient is advised to practice wearing PAP daily while awake, lower pressure with or without sleeping on sides, activate PAP ramp feature, have blower checked to make sure pressure is set as prescribed and return to sleep center for consideration of auto-adjusting PAP therapy. Dry mouth is a normal occurrence for people who just start out on PAP therapy because they are not used to air blowing in to the throat to hold open. Dry mouth is exacerbated for people who wear nasal PAP mask and whose jaw drops open during sleep. Not only does this create a much less efficient therapy because of leakage, it also causes dry mouth. There are a couple solutions to help prevent this type of problem. A simple solution would be to wear a chinstrap which essentially holds the jaw in place. A second solution would be a switch to a full face mask which covers both the nose and mouth. Although this is another easy solution, using a full face mask for some could seem claustrophobic or confining. There is no silver bullet solution as no single mask is right for everybody. Sometimes it takes a bit of experimentation to find a PAP mask which best meets the patient's needs as well as fits comfortably. Another tactic is to use a humidifier on your PAP machine. Most new PAP machines have integrated humidifiers. Humidification is arceo when dealing with symptoms of dry mouth because the humidifier can supply both warm and room temperate air. Even a small amount of humidity in the airflow will help nasal passages to stay hydrated. If a person is using both a full face mask and a PAP machine with a heated humidifier and is still experiencing dry mouth, an ill-fitted PAP mask might be causing the problem. Leakage can be caused by a mask that is to large or small, the wrong style mask, the cushion is degraded or simply because the mask's straps aren't adjusted correctly. If leakage occurs, dry air from the room can leak in while humidification escapes. The result is reduced humidification within the circuit and resulting in dry throat and mouth. Finally, beyond factors involving the PAP machine and mask, dry mouth can also be caused or worsened by dehydration. The general recommendation to during eight 8 oz. glasses of water a day might be too little for many people. When people drink large amounts of coffee or other caffeine beverages, or sweat a lot during the day, making sure to rehydrate is an important part of PAP therapy. Patient tends to take of the PAP mask during sleep. We reassured patient that this is common. We address all other areas of headgear/nasal interface problems, especially nasal congestion. Patient can use humidification +/- chinstrap, put low-pressure alarm on blower unit to awaken patient to reposition mask and set alarm at night for patient to check headgear. Provided the patient with a list of local home care stores where positive airway pressure (PAP) units, accoutrement, and services are available. Home care store selection is based on patient's insurance carrier. Patient will setup an appointment with [facility] for supplies and pressure adjustments. A major predictor of success with use of PAP is follow-up with both the respiratory supplier and the treating physician. The download results can show the treating physician information about adherence to treatment, residual AHI while on treatment and presence of large mask leakage. This information is especially helpful if the patient has residual sleepiness despite treatment. General information on sleep disordered breathing, evaluation of sleep disordered breathing, treatment with PAP therapy, and living with PAP therapy were covered. We discussed with the patient the impact of weight on: Sleep disordered breathing Hypertension Mixed hyperlipidemia DM Transaminitis We discussed with the patient the benefit of PAP therapy on: Sleep disordered breathing Anxiety Hypertension DM Educated the patient on sleep hygiene measures. Relaxing rituals to rest easy, understanding foods with positive and negative impact on sleep, creating a peaceful sleep environment, timing of exercise, using herbal sleep aids, and practicing sleep-friendly meditation were covered. To determine how much sleep is needed, the patient will assess where she falls on the spectrum, examine what lifestyle factor such as stress is affecting the quality and quantity of sleep. In general, adults need 7-9 hours of sleep. Educated the patient regarding foods that promote sleep. These include but are not limited to cherries, bananas, toast, oatmeal, and warm milk. Educated the patient regarding foods and drinks to avoid before bedtime. These include but are not limited to aged cheese, chocolate, spicy foods, tomato-based sauces, soy, ginseng tea and processed meat. Advocated influenza vaccination annually and pneumonia vaccination ALEXA. Advocated weight loss through diet and exercise. Patient's ideal body weight according to height and gender is up to 115 lbs. Encouraged patient to adjust caloric intake to maintain/achieve ideal body weight, emphasizing on fruits, vegetables, whole grains, and fat-free or low-fat products. These include lean meats, poultry, fish, beans, eggs, and nuts and foods that are low in saturated fats, trans-fats, cholesterol, salt (sodium), and glycemic index. Stressed the importance of regular exercise up to the patient's capacity limits. In this case, we recommend 20 min daily walking, 2 days a week of resistance training. Patient to monitor BP daily and bring records to PCP for further management. Follow-up: 3 months, November 2024 [email or web address] Not available 09/06/2024 12:08:01 11/29/2024 11/29/2024 HPI: This is a [age] year old female who presents today for left knee pain that has been ongoing for the past several years. She comes in today because the pain has become constant in nature and severity of 5/10. Pain is aggravated by daily activities. Previous treatment includes physical therapy, anti-inflammatorie s, tylenol, cortisone injections, gel injections, which all provided minimal relief. She is also on oxycodone for her back, but states this doesn't relieve her knee pain. No associated symptoms. There no a history of prior injury. No recent injury. No history of prior left knee surgery, but does have a TKA in the right. Significant PMHx: HTN Physical Exam: General: Normal appearance. No acute distress. BMI 24.6 Inspection: No evidence of swelling, erythema, bruising or deformity. Palpation: Tenderness to palpation along the patellar tendon. ROM: 5-100. Crepitus with ROM. Gait: Antalgic gait. Special Test: Pain with terminal flexion. Negative Ann, Negative Lachmann, No valgus or varus instability. Negative Posterior Draw. Motor: 5/5 strength in all other planes. Sensation: Lower extremity sensation intact. Imaging: Xray reviewed. Left Knee: Moderate osteoarthritis with medial joint space narrowing and subchondral sclerosis. No acute bony abnormalities or fractures. Mild patellofemoral osteoarthritis, subchondral sclerosis, and osteophytes. Right Knee: Post-total knee arthroplasty Assessment & Plan: We discussed that the next steps could be an injection, as it has many a couple of years since her last, or a knee replacement. She decided to proceed with an injection and see if she would get relief with it and think about surgery. Injection given today. She tolerated the procedure. Knee HEP given to patient. I will talk to about how to proceed with knee replacement if she decides to do this, as we may have to refer her out since she has [facility] and we are unable to perform surgery at the hospital. Follow Up: 3 months. At this time we can discuss doing another injection or surgery. All questions were answered. Patient verbalized understanding of treatment plan [email or web address] Not available 11/29/2024 15:10:24 12/06/2024 12/06/2024 Assessment: Severe OSAHS, AHI = 40 Plan: The following were reviewed and explained to the patient: [facility] home sleep study 04/02/17 AHI = 40 [facility] titration sleep study 05/19/24, sleep onset = 22 minutes, REM onset = 213.5 minutes, Respironics small DreamWear full face mask @ 7-11 cmH2O, PLMI = 0.0 PAP compliance downloaded and interpreted x 20 minutes. Data reviewed and explained to the patient. Average apnea/hypopnea index (AHI) is 7.2. Patient used PAP > 4 hours 62% of the time. PAP is set at 6-14 cmH2O. PAP will be reset at 4-14 cmH2O. Keep ramp off. Change EPR from +1 ramp only to head of store operations. Keep humidifier level on automatic mode. Keep tube temperature on automatic mode. Oxygen supplementation: none Patient is benefiting from PAP therapy. Encouraged patient to maintain PAP use more than 70% of the time. Statement of PAP use and benefits will be sent to the home care store. Add chin strap for use with nasal mask in case she doesn't like the full face mask. Educated the patient on problems and solutions associated with positive airway pressure (PAP) use. Difficulty tolerating pressure, mask leaks, intolerance of interface, nasal congestion, claustrophobic response, dry mouth, and unintentional mask removal during sleep were covered. Patient has some difficulty tolerating pressure. Patient is advised to practice wearing PAP daily while awake, lower pressure with or without sleeping on sides, activate PAP ramp feature, have blower checked to make sure pressure is set as prescribed and return to sleep center for consideration of auto-adjusting PAP therapy. Dry mouth is a normal occurrence for people who just start out on PAP therapy because they are not used to air blowing in to the throat to hold open. Dry mouth is exacerbated for people who wear nasal PAP mask and whose jaw drops open during sleep. Not only does this create a much less efficient therapy because of leakage, it also causes dry mouth. There are a couple solutions to help prevent this type of problem. A simple solution would be to wear a chinstrap which essentially holds the jaw in place. A second solution would be a switch to a full face mask which covers both the nose and mouth. Although this is another easy solution, using a full face mask for some could seem claustrophobic or confining. There is no silver bullet solution as no single mask is right for everybody. Sometimes it takes a bit of experimentation to find a PAP mask which best meets the patient's needs as well as fits comfortably. Another tactic is to use a humidifier on your PAP machine. Most new PAP machines have integrated humidifiers. Humidification is arceo when dealing with symptoms of dry mouth because the humidifier can supply both warm and room temperate air. Even a small amount of humidity in the airflow will help nasal passages to stay hydrated. If a person is using both a full face mask and a PAP machine with a heated humidifier and is still experiencing dry mouth, an ill-fitted PAP mask might be causing the problem. Leakage can be caused by a mask that is to large or small, the wrong style mask, the cushion is degraded or simply because the mask's straps aren't adjusted correctly. If leakage occurs, dry air from the room can leak in while humidification escapes. The result is reduced humidification within the circuit and resulting in dry throat and mouth. Finally, beyond factors involving the PAP machine and mask, dry mouth can also be caused or worsened by dehydration. The general recommendation to during eight 8 oz. glasses of water a day might be too little for many people. When people drink large amounts of coffee or other caffeine beverages, or sweat a lot during the day, making sure to rehydrate is an important part of PAP therapy. Patient tends to take of the PAP mask during sleep. We reassured patient that this is common. We address all other areas of headgear/nasal interface problems, especially nasal congestion. Patient can use humidification +/- chinstrap, put low-pressure alarm on blower unit to awaken patient to reposition mask and set alarm at night for patient to check headgear. Provided the patient with a list of local home care stores where positive airway pressure (PAP) units, accoutrement, and services are available. Home care store selection is based on patient's insurance carrier. Patient will setup an appointment with [facility] for supplies and pressure adjustments. A major predictor of success with use of PAP is follow-up with both the respiratory supplier and the treating physician. The download results can show the treating physician information about adherence to treatment, residual AHI while on treatment and presence of large mask leakage. This information is especially helpful if the patient has residual sleepiness despite treatment. General information on sleep disordered breathing, evaluation of sleep disordered breathing, treatment with PAP therapy, and living with PAP therapy were covered. We discussed with the patient the impact of weight on: Sleep disordered breathing Hypertension Mixed hyperlipidemia DM Transaminitis We discussed with the patient the benefit of PAP therapy on: Sleep disordered breathing Anxiety Hypertension DM Educated the patient on sleep hygiene measures. Relaxing rituals to rest easy, understanding foods with positive and negative impact on sleep, creating a peaceful sleep environment, timing of exercise, using herbal sleep aids, and practicing sleep-friendly meditation were covered. To determine how much sleep is needed, the patient will assess where she falls on the spectrum, examine what lifestyle factor such as stress is affecting the quality and quantity of sleep. In general, adults need 7-9 hours of sleep. Educated the patient regarding foods that promote sleep. These include but are not limited to cherries, bananas, toast, oatmeal, and warm milk. Educated the patient regarding foods and drinks to avoid before bedtime. These include but are not limited to aged cheese, chocolate, spicy foods, tomato-based sauces, soy, ginseng tea and processed meat. Advocated influenza vaccination annually and pneumonia vaccination ALEXA. Advocated weight loss through diet and exercise. Patient's ideal body weight according to height and gender is up to 115 lbs. Encouraged patient to adjust caloric intake to maintain/achieve ideal body weight, emphasizing on fruits, vegetables, whole grains, and fat-free or low-fat products. These include lean meats, poultry, fish, beans, eggs, and nuts and foods that are low in saturated fats, trans-fats, cholesterol, salt (sodium), and glycemic index. Stressed the importance of regular exercise up to the patient's capacity limits. In this case, we recommend 20 min daily walking, 2 days a week of resistance training. Patient to monitor BP daily and bring records to PCP for further management. Follow-up: 3 months, February 2025 [email or web address] Not available 12/06/2024 11:25:13 01/13/2025 01/13/2025 04/30/2024: A1C 5.6 TSH 0.112L, FT4 1.34 ALT/AST 192/142, TP 5.6L, Glob 2.1L H/H 11.2/35.3 07/02/2024: TSH 0.116L, FT4 1.16 H/H 11.3/35.5 45 minutes spent with the patient, UA done and labs provided and referral done [email or web address] Not available 01/13/2025 10:08:21 03/02/2025 03/02/2025 65-year-old femsvetlana zuleta presents for follow-up of her left knee. She has knee osteoarthritis. We saw her in November and did a cortisone injection. This helped somewhat but lasted only about a month. She is also taking meloxicam and using topical Voltaren. She currently still rates her pain as 8/10, has pain with bending, getting up and down. Range of motion 5-100 with crepitus. She has tenderness over the mediolateral joint line and also over the patella. Stable ligaments. She has failed conservative management and wants to discuss surgery. She wants to hold off until June because she has a trip to [place] planned in the summer and she wants to be able to get in the water and do all of her activities. In the meantime, we discussed doing a repeat injection. She thought the previous gel injections worked better for her so we will get authorization for that. We will see her back for the gel injections, then in June to get her on the schedule for surgery. She is in agreement with plan. [email or web address] Not available 03/02/2025 12:28:30 Plan of Treatment Reminders Order Date Submit Date Provider Last Modified By Organization Details Last Modified Time Details Appointments None recorded. Lab urinalysis, dipstick 2024 025 [email or web address] [facility] [address] [facility], [place], [address], 5 10:08:07 vitamin B12 + folate, serum or blood [address] (Lab), [address] [place], [address], 5 15:36:52 lipid panel, serum [address] (Lab), [address] [place], [address], 5 15:36:51 CBC w/ auto diff [address] (Lab), [address] [place], [address], 5 15:36:51 TSH, serum or plasma [address] (Lab), [address] [place], [address], 5 15:36:51 CMP, serum or plasma [address] (Lab), [address] [place], [address], 5 15:36:52 vitamin D, 25-hydroxy, total, serum [address] (Lab), [address] [place], [address], 5 15:36:52 Referral gynecologis t referral - Please call patient to schedule an appointment . Thank you. 2024 025 [email or web address] 6 Barbara Pierce MD, [address] [facility] [address], [address], [place], [address], 5 08:37:[address] referral 2024 025 [email or web address] Bal Capone MD, [address] [facility], [place], [address], 5 09:20:05 otolaryngol ogist referral - Please call patient to schedule an appointment . Thank you. 2024 025 [email or web address] 6 Damien Aranda MD, [address], [place], [address], 5 09:56:04 rheumatolog ist referral - Please call patient to schedule an appointment . Thank you. 2024 025 [email or web address] 6 Briseida Patino MD, [address] [place], [address], 5 09:56:03 urologist referral - Please call patient to schedule an appointment . Thank you. 2024 025 [email or web address] 6 Carlos Schultz MD, [address] [facility] [address], [address], [place], [address], 5 09:11:38 gastroenter ologist referral - Please call patient to schedule an appointment . Thank you. 2024 025 [email or web address] Giron MD, [address] [facility], [address], [place], [address], 5 09:34:12 gastroenter ologist referral - Please call patient to schedule an appointment . Thank you. 2024 025 [email or web address] 6 Anthony Mckay MD, [address] [facility], [address], [place], [address], 09:56:05 neurologist referral - Please call patient to schedule an appointment . Thank you. 2024 025 [email or web address] 6 Susy Delong MD, [address] [facility] [address] [address], [place], [address], 09:11:57 orthopedic surgeon referral - Please call patient to schedule an appointment . Thank you. 2024 025 [email or web address] 6 Casa Schultz, [address] [facility] [address], [address], [place], [address], 09:12:[address] referral - Please call patient to schedule an appointment . Thank you. 2024 025 [email or web address] 6 Dustin Gutierrez MD, [address] [facility], [address], [place], [address], 09:12:34 Procedures injection/a spiration joint/bursa (PROC) 2024 025 [email or web address] In-Office Order, Internal Use Only DO Not Attach Compendium DO Not Attach Compendium, Do Not Delete/merge, [id number] 15:08:49 Surgeries None recorded. Imaging MAMMO, screening, digital, bilateral [address] ([facility]), [address] [place], [address], 10:30:40 DEXA, axial skeleton - Please call patient to schedule. [address], [address], [address], [place], [address], 11:17:27 MAMMO, screening, digital, bilateral - Please call patient to schedule. [address], [address], [address], [place], [address], 12:04:24 XR, knee, 3 view 2024 025 [email or web address] [facility] Marrero, [address], [place], [address], 15:10:31 Medication Orders ciprofloxac in 500 mg tablet 2024 025 [facility] #[id number], [address], [place], [place], [id number], 5 10:05:10 bupivacaine HCl 0.5 % (5 mg/mL) injection solution 2024 025 [facility] #[id number], [address], [place], [place], [id number], 16:43:31 Kenalog 10 mg/mL suspension for injection 2024 025 [facility] #[id number], [address], [place], [place], [id number], 16:43:31 Patient TargetsNo targets recorded. Patient Instructions Encounter Date Encounter Id Patient Instructions Last Modified By Organization Details Last Modified Time 03/02/2025 [id number] viscosupplementa tion treatment* - L knee [email or web address] Not available 03/02/2025 13:57:42 Reason for Referral Hospital Social Worker Referral for Gy necologic examination Please call patient to schedule an appointment. Thank you. Referring Physician: Barb Doss, Internal Medicine, Encounter Date: 01/13/2025 Mechanical And Auto Body Car Checker Referral for O bstructive sleep apnea syndrome Referring Physician: Barb Doss, Internal Medicine, Encounter Date: 01/13/2025 International Controller Referral for Rheumatoid arthritis Please call patient to schedule an appointment. Thank you. Referring Physician: Barb Doss Internal Medicine, Encounter Date: 01/13/2025 Urologist Referral for Blood in urine Please call patient to schedule an appointment. Thank you. Referring Physician: Barb Doss Internal Medicine, Encounter Date: 01/13/2025 Neurologist Referral for Mem ory impairment Please call patient to schedule an appointment. Thank you. Referring Physician: Barb Doss Internal Medicine, Encounter Date: 01/13/2025 Chain Maker Machine Referral for Liver enzymes level above reference range Please call patient to schedule an appointment. Thank you. Referring Physician: Barb Doss Internal Medicine, Encounter Date: 01/13/2025 Camera Repairman Referral fo r Lesion of nose Please call patient to schedule an appointment. Thank you. Referring Physician: Barb Doss [facility] Medicine, Encounter Date: 01/13/2025 Chain Maker Machine Referral for Intraductal papillary mucinous neoplasm of pancreas Please call patient to schedule an appointment. Thank you. Referring Physician: Barb Doss Internal Medicine, Encounter Date: 01/13/2025 Orthopedic Surgeon Referral for Pain of left knee joint Please call patient to schedule an appointment. Thank you. Referring Physician: Barb Doss [facility] Medicine, Encounter Date: 01/13/2025 Nurse Staff [facility] Referral for L esion of skin of face Please call patient to schedule an appointment. Thank you. Referring Physician: Barb Doss [facility] Medicine, Encounter Date: 01/13/2025 Results Created Date Observation Date Name Description Value Unit Range Abnormal Flag Note LastModifiedBy Organization Detail LastModifiedTime 01/13/2001/13/2025 urina lysis , dipst ick Leukocytes (reference range: negative harley/ l) Negati ve Not Available [facility] [place] [address] , [place], [address], 01/13/2025 10:09:04 01/13/20 25 01/13/2025 urina lysis , dipst ick Nitrite (reference rage: negative mg/dl) negati ve Not Available [facility] [address] [facility] [address], [place], [address], 01/13/2025 10:09:04 01/13/20 25 01/13/2025 urina lysis , dipst ick Urobilinogen (reference range: 0.2-1 mg/dl) 0.2 Not Available [facility] [address] [facility] [address], [place], [address], 01/13/2025 10:09:04 01/13/20 25 01/13/2025 urina lysis , dipst ick Protein (reference range: negative mg/dl) Negati ve Not Available [facility] [address] [facility] [address], [place], [address], 01/13/2025 10:09:04 01/13/2001/13/2025 urina lysis , dipst ick pH (reference range: 5-7) 6.0 Not Available [facility] [address] [facility] [address], [place], [address], 01/13/2025 10:09:04 01/13/20 25 01/13/2025 urina lysis , dipst ick Blood (reference range: negative Facundo/ l) Non-He molyze d: Trace Not Available [facility] [address] [facility] [address], [place], [address], 01/13/2025 10:09:04 01/13/20 25 01/13/2025 urina lysis , dipst ick Specific [place] (reference range: 1.005-1.030) 1.020 Not Available [facility] [address] [facility] [address], [place], [address], 01/13/2025 10:09:04 01/13/20 25 01/13/2025 urina lysis , dipst ick Ketone (reference range: negative mg/dl) Negati ve Not Available [facility] [address] [facility], [place], [address], 01/13/2025 10:09:04 01/13/20 25 01/13/2025 urina lysis , dipst ick Bilirubin (reference range: negative mg/dl) Negati ve Not Available [facility] [address] [facility] [address], [place], [address], 01/13/2025 10:09:04 01/13/20 25 01/13/2025 urina lysis , dipst ick Glucose (reference range: negative mg/dl) Negati ve Not Available [facility] [address] [facility] [address], [place], [address], 01/13/2025 10:09:04 01/13/20 25 01/13/2025 urina lysis , dipst ick Appearance Slight ly Cloudy Not Available [facility] [address] [facility] [address], [place], [address], 01/13/2025 10:09:04 01/13/20 25 01/13/2025 urina lysis , dipst ick Color Yellow Not Available [facility] [address] [facility] [address], [place], [address], 01/13/2025 10:09:04 11/29/19 25 XR, knee, 3 view No observ ation record ed. [email or web address] [facility] [place] [address], [place], [address], 11/29/2024 15:10:31 Result Notes None recorded. Problems Name Problem SNOMED Code Status Onset Date Resolution Date Notes Provider Name and Address Organization Details Recorded Time Endometri osis (clinical ) 481290022 Completed 199109/25/2017 Not Available [facility] 3 05:59:48 Hypertrig lyceridem ia 774211969 Active 2016 Not Available [facility] 4 00:31:09 Type 2 diabetes mellitus without complicat ion 061600890 Active 2021 Karina Morgan, CCM null, [place] [facility] [place] [facility] 4 10:30:50 Hypertens kusum disorder 70568083 Active 2016 Karina Morgan, CCM null, [place] [facility] 4 11:39:14 Obesity 304241001 Active Not Available [facility] 4 00:31:09 Dysuria 65317814 Completed Not Available [facility] 3 05:59:50 Urinary tract infectiou s disease 54901989 Completed Not Available [facility] 3 05:59:50 Rheumatoi d arthritis 63383384 Active Karina Azult, CCM null, [place] [facility] [place] [facility] 4 11:39:14 Liver enzymes level above reference range 081781193 Active 2021 Not Available [facility] 4 00:31:10 Obstructi ve sleep apnea syndrome 01302270 Active 2018 Karina Morgan, CCM null, [place] [facility] [place] [facility] 4 11:39:14 Vitamin D deficienc y 84779059 Active 2022 Not Available [facility] 4 00:31:09 Cobalamin deficienc y 019387511 Active 2022 Not Available [facility] 4 00:31:09 Generaliz ed anxiety disorder 66553292 Active 2022 Karinaelio Azult, CCM null, [place] [facility] 4 11:39:14 Chronic sinusitis 03623848 Active 2022 Karina Morgan CCM null, [place] [facility] 4 11:39:14 Intraduct al papillary mucinous neoplasm of pancreas 23921309904 9106 Active 2022 Not Available [facility] 4 00:31:10 Postgastr ic surgery syndrome 47586882 Active 2022 Not Available [facility] 4 00:31:10 Hypothyro idism 04152316 Active 2023 Karina Morgan CCM null, [place] [facility] [place] [facility] 4 11:39:14 Carpal tunnel syndrome of left wrist 99162801832 9102 Active 2023 Hermelinda Martinez null, [place] [facility] [place] [facility] 4 15:50:46 Ulnar nerve entrapmen t at elbow 834499579 Active 2023 HORACIO Ortiz [address], [place], [address] , [place] [facility] 4 16:55:52 Anemia 393768027 Active 2023 Barb cameron MD [address], [place], [address] , [place] [facility] 4 12:24:58 Coronary arteriosc lerosis 08102277 Active 2023 Barb cameron MD [address], [place], [address] , [place] [facility] 4 12:38:53 Osteoarth ritis of left knee joint 07675727029 9109 Active 2024 Phuong Santillan PA-C [address], [place], [address] , [place] [facility] [place] [facility] 5 15:06:03 Hyperlipi demia 66655588 Active 2024 Barb cameron MD [address], [place], [address] , [employer] [facility] [employer] [facility] 5 09:34:08 Chronic pain syndrome 779923866 Active 2024 Barb cameron MD [address], [place], [address] , [employer] [facility] [employer] [facility] 5 09:34:08 Essential hypertens ion 96569953 Active 2024 Barb cameron MD [address], [place], [address] , [employer] [facility] [employer] [facility] 5 09:34:08 Lesion of nose 186806204 Active 2024 Barb cameron MD [address], [place], [address] , [employer] [facility] [employer] [facility] 5 09:34:08 Blood in urine 24861652 Active 2024 Barb cameron MD [address], [place], [address] , [employer] [facility] 5 09:34:08 Memory impairmen t 586564642 Active 2024 Barb cameron MD [address], [place], [address] , [employer] [facility] [employer] [facility] 5 09:34:08 Pain of left wrist 77932061353 9102 Active 2024 Barb cameron MD [address], [place], [address] , [employer] [facility] [employer] [facility] 5 09:34:08 Folliculi tis 78163056 Active 2024 Barb cameron MD [address], [place], [address] , [employer] [facility] [employer] [facility] 5 09:34:08 Pain of left knee joint 80446031599 4107 Active 2024 Barb cameron MD [address] [facility] [address], [place], [address] , [facility] [employer] [facility] [employer] [facility] 5 09:40:55 Lesion of skin of face 04939408260 6 Active 2024 Barb cameron MD [address], [place], [address] , [facility] [employer] [facility] [employer] [facility] 5 10:03:32 Acute sinusitis 10083273 Active 2024 DEVON Carrillo, [facility] [employer] [facility] 5 12:00:23 Acute urinary tract infection 560877932 Active 2024 DEVON Carrillo, [facility] [employer] [facility] 5 17:11:10 Notes:Medical History: Type 1 Chiari malformation Anxiety COVID infection 11/2021 Influenza A infection 10/2022 Bilateral ethmoid and right maxillary sinusitis Postnasal drip Bruxism Obesity with severe OSAHS, AHI = 40, 04/02/17, on autoCPAP c/o IVRC Hypertension Mixed hyperlipidemia T2DM with neuropathy CAD s/p FL Transaminitis Hemorrhoids Normocytic anemia Iron deficiency Vit B12 deficiency Vit D deficiency RA Right acromioclavicular hypertrophy Procedure History: T&A 1966 Appendectomy 1989 HERNAN-BSO for endometriosis 1990 Cholecystectomy 2008 Lumbar fusion 2011 Colonoscopy 2015 Right knee replacement 2017 Gastric bypass 2021 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 Procedures Surgical History Date Name Laterality Status Provider Name and Address Organization Details Recorded Time 11/29/19 Corticosteroid Injection completed Phuong Santillan PA-C [address], [place], [address], [facility] [employer] [facility] 11/29/2024 15:09:36 06/10/20 24 Chronic care management services completed Atiya Matamoros [facility] [employer] [facility] 06/10/2024 18:17:37 05/13/20 24 Chronic care management services completed Karina Mora [facility] 05/13/2024 21:11:06 05/06/20 24 Medicare Wellness CPT Code, subsequent completed Randal Khoury LPN [facility] 05/05/2024 15:34:18 05/06/20 24 Advanced Care Planning completed Randal Khoury LPN [facility] 05/06/2024 13:53:24 04/14/20 24 Chronic care management services completed Karina Mora [facility] 04/14/2024 20:30:34 11/19/19 24 Ortho - Cortisone Injection completed Montserrat Wheat NP [address] [facility] [address], [place], [address], [facility] 11/19/2023 11:49:00 04/16/20 22 Gastric bypass for obesity completed Not Available [facility] 01/15/2023 05:55:22 Breast reduction completed Not Available [facility] 01/15/2023 05:55:22 Cholecystectomy completed Not Available [facility] 01/15/2023 05:55:22 Hysterectomy completed Not Available [facility] 01/15/2023 05:55:22 lumbar spinal fusion completed Not Available [facility] 01/15/2023 05:55:22 appendectomy completed Not Available [facility] 01/15/2023 05:55:22 Carpal tunnel completed Marjorie Tristan MA [facility] 01/13/2025 09:31:36 Imaging Results None recorded. Procedure Notes None recorded. Medical Equipment None Reported. Allergies Allergen ID Allergen Name Allergen Category Reaction Reaction Severity Criticality Documentation Date Start Date Code Code System Note Provider Name and Address Organization Details Recorded Time 81313 Substance with sulfonami de structure and antibacte rial mechanism of action (substanc e) medicatio n itching Not available Not available 01/15/2023 36699 8003 SNOMED Not Available [facility] 3 06:07:08 92600 erythromy danielle medicatio n Not available Not available Not available 01/15/2023 4053 RxNorm Not Available [facility] 3 06:07:09 33157 Non-stero idal anti-infl ammatory agent (product) medicatio n diarrhea moderate Not available 04/27/2024 86896 005 SNDAMIAN Mora, CCM null, [place] [facility] 4 10:35:19 Medications Name Sig Start Date Stop Date Status Note LastModified by Organization Details LastModified Time carisoprodo l 350 mg tablet active Not Available Not Available Not Available cyclobenzap rine 10 mg tablet 11/03 completed Not Available Not Available Not Available amoxicillin 500 mg capsule TAKE 1 CAPSULE BY MOUTH 4 TIMES A DAY 07/30 completed Not Available Not Available Not Available fluconazole 100 mg tablet TK 1 T PO D active Not Available Not Available No t Available venlafaxine ER 37.5 mg capsule,ext ended release 24 hr 05/26 completed Not Available Not Available Not Available potassium chloride ER 10 mEq capsule,ext ended release TAKE 1 CAPSULE BY MOUTH DAILY 2024 active Not Available Not Available Not Avai lable prednisone 10 mg tablet 12/06 completed Not Available Not Available Not Available nitrofurant oin macrocrysta l 50 mg capsule TK 1 C PO WITH IN AN HOUR OF INTERCOUR SE OR DIARRHEA 02/06 completed Not Available Not Available Not Available tizanidine 2 mg tablet active Not Available Not Available Not Available atorvastati n 10 mg tablet active Not Available Not Available Not Available azithromyci n 250 mg tablet TAKE 2 TABLETS (500 MG) BY ORAL ROUTE ONCE DAILY FOR 1 DAY THEN 1 TABLET (250 MG) BY ORAL ROUTE ONCE DAILY FOR 4 DAYS 02/26 completed Not Available Not Available Not Available metoprolol tartrate 100 mg tablet 05/26 completed Not Available Not Available Not Available tizanidine 4 mg tablet TK 1 T PO QHS 05/29 completed Not Available Not Available Not Available valacyclovi r 1 gram tablet active Not Available Not Available Not Available hydrocodone 5 mg-acetamin ophen 325 mg tablet TK 1 T PO Q 6 H PRF PAIN 08/01 completed Not Available Not Available Not Available bupivacaine HCl 0.5 % (5 mg/mL) injection solution Take 2 mL by injection route. 2024 active Not Available Not Available Not Avai lable metoprolol succinate ER 100 mg tablet,exte nded release 24 hr TAKE 1 TABLET BY MOUTH TWICE DAILY 2024 active Not Available Not Available Not Avai lable cyanocobala min (vit B-12) 1,000 mcg tablet 11/29 completed Not Available Not Available Not Available leflunomide 10 mg tablet 05/30 completed Not Available Not Available Not Available potassium chloride ER 10 mEq tablet,exte nded release TAKE 1 TABLET BY MOUTH EVERY DAY active Not Available Not Available No t Available ciprofloxac in 250 mg tablet Take 1 tablet twice a day by oral route for 5 days. 05/29 completed Not Available Not Available Not Available acyclovir 400 mg tablet TK 1 T PO TID 08/28 completed Not Available Not Available Not Available ciprofloxac in 500 mg tablet TAKE 1 TABLET BY MOUTH TWICE A DAY FOR 7 DAYS active Not Available Not Available No t Available hydrocodone 10 mg-acetamin ophen 325 mg tablet TAKE 1 TABLET BY MOUTH EVERY 4 TO 6 HOURS NEEDED 09/06 completed Not Available Not Available Not Available omeprazole 40 mg capsule,del ayed release 11/04 completed Not Available Not Available Not Available tramadol 50 mg tablet TK 1 T PO BID PRN 05/29 completed Not Available Not Available Not Available amitriptyli ne 50 mg tablet TAKE 1 TABLET BY MOUTH AT BEDTIME 07/30 completed Not Available Not Available Not Available triamcinolo ne acetonide 0.1 % topical cream APPLY THIN LAYER TOPICALLY TO THE AFFECTED AREA TWICE DAILY NEEDED 11/19 completed Not Available Not Available Not Available amoxicillin 500 mg tablet Take 1 tablet 3 times a day by oral route. 02/02 completed Not Available Not Available Not Available simvastatin 40 mg tablet TAKE 1 TABLET BY MOUTH EVERY DAY 08/07 completed Not Available Not Available Not Available levothyroxi ne 75 mcg tablet TAKE 1 TABLET BY MOUTH EVERY DAY IN THE MORNING ON AN EMPTY STOMACH active Not Available Not Available No t Available meloxicam 7.5 mg tablet TAKE 1 TABLET BY MOUTH DAILY active Not Available Not Available No t Available potassium chloride ER 20 mEq tablet,exte nded release(par t/cryst) 05/26 completed Not Available Not Available Not Available methocarbam ol 750 mg tablet active Not Available Not Available Not Available cyanocobala min (vit B-12) 500 mcg tablet 02/26 completed Not Available Not Available Not Available methotrexat e sodium 2.5 mg tablet TK 4 TS PO WEEKLY 02/26 completed Not Available Not Available Not Available OneTouch Ultra Test strips TEST TWICE DAILY DIRECTED active Not Available Not Available No t Available Kenalog 10 mg/mL suspension for injection Take 4 mL by injection route. 2024 active [facility]: [phone]- 20 Not Available Not Available Not Available phenazopyri dine 100 mg tablet active Not Available Not Available Not Available hydrocodone 7.5 mg-acetamin ophen 325 mg tablet TAKE 1 TABLET BY MOUTH EVERY 4 TO 6 HOURS NEEDED 01/08 completed Not Available Not Available Not Available cephalexin 500 mg capsule 06/16 completed Not Available Not Available Not Available simvastatin 20 mg tablet TAKE 1 TABLET BY MOUTH EVERY DAY 07/30 completed Not Available Not Available Not Available oseltamivir 75 mg capsule TAKE 1 CAPSULE BY MOUTH TWICE DAILY FOR 5 DAYS 02/17 completed Not Available Not Available Not Available ferrous sulfate 325 mg (65 mg iron) tablet 07/15 completed Not Available Not Available Not Available warfarin 2 mg tablet 02/06 completed Not Available Not Available Not Available ursodiol 300 mg capsule TAKE 1 CAPSULE BY MOUTH TWICE DAILY 04/27 completed Not Available Not Available Not Available nitroglycer in 0.4 mg sublingual tablet DISSOLVE 1 TABLET UNDER THE TONGUE EVERY 5 MINUTES FOR A TOTAL OF 3 DOSES NEEDED FOR CHEST PAIN. IF NO RELIEF AFTER THIRD DOSE GO TO ER 01/01 completed Not Available Not Available Not Available docusate sodium 100 mg capsule 11/03 completed Not Available Not Available Not Available gabapentin 300 mg capsule TAKE 2 CAPSULES BY MOUTH THREE TIMES DAILY active Not Available Not Available No t Available folic acid 1 mg tablet TK 2 TS PO D 02/06 completed Not Available Not Available Not Available hydrocodone 5 mg-acetamin ophen 500 mg tablet active Not Available Not Available No t Available mupirocin 2 % topical ointment 07/25 completed Not Available Not Available Not Available ergocalcife rol (vitamin D2) 1,250 mcg (50,000 unit) capsule Take 1 capsule every week by oral route. active Not Available Not Available No t Available hydroxychlo roquine 200 mg tablet active Not Available Not Available No t Available levofloxaci n 500 mg tablet 02/06 completed Not Available Not Available Not Available oxycodone-a cetaminophe n 7.5 mg-325 mg tablet 07/30 completed Not Available Not Available Not Available estradiol 0.01% (0.1 mg/gram) vaginal cream INSERT 1 GRAM VAGINALLY 3 TIMES PER WEEK 05/24 completed Not Available Not Available Not Available scopolamine 1 mg over 3 days transdermal patch 05/30 completed Not Available Not Available Not Available methylpredn isolone 4 mg tablets in a dose pack FOLLOW PACKAGE DIRECTION S 07/15 completed Not Available Not Available Not Available albuterol sulfate HFA 90 mcg/actuati on aerosol inhaler Inhale 2 puffs every 4 hours by inhalatio n route as needed. active Not Available Not Available No t Available hydromorpho ne 4 mg tablet 07/30 completed Not Available Not Available Not Available hydrocodone 7.5 mg-acetamin ophen 500 mg tablet active Not Available Not Available No t Available ondansetron 4 mg disintegrat ing tablet 11/04 completed Not Available Not Available Not Available fluticasone propionate 50 mcg/actuati on nasal spray,suspe nsion SHAKE LIQUID AND USE 2 SPRAYS NASALLY EVERY DAY NEEDED 07/27 completed Not Available Not Available Not Available amoxicillin 875 mg-potassiu m clavulanate 125 mg tablet TAKE 1 TABLET BY MOUTH TWICE DAILY FOR 7 DAYS active Not Available Not Available No t Available oxycodone 5 mg tablet active Not Available Not Available No t Available hydroxyzine pamoate 25 mg capsule 02/06 completed Not Available Not Available Not Available neomycin 3.5 mg/g-polymy ivana B 10,000 unit/g-dexa meth 0.1 % eye oint APPLY 1 A SMALL AMOUNT INTO AFFECTED EYE TWICE A DAY NEEDED active Not Available Not Available No t Available olmesartan 20 mg tablet 05/24 completed Not Available Not Available Not Available escitalopra m 10 mg tablet TAKE 1 TABLET BY MOUTH EVERY DAY 10/25 completed Not Available Not Available Not Available escitalopra m 20 mg tablet TAKE 1 TABLET BY MOUTH DAILY active Not Available Not Available No t Available ezetimibe 10 mg tablet Take 1 tablet every day by oral route. 07/15 completed Not Available Not Available Not Available cyclobenzap rine 5 mg tablet active Not Available Not Available Not Available Leda 0.025 mg/24 hr transdermal patch active Not Available Not Available Not Available olmesartan 20 mg-hydrochl orothiazide 12.5 mg tablet TAKE 1 TABLET BY MOUTH EVERY DAY active Not Available Not Available No t Available rosuvastati n 40 mg tablet 07/15 completed Not Available Not Available Not Available nitrofurant oin monohydrate /macrocryst als 100 mg capsule TAKE 1 CAPSULE BY MOUTH TWICE DAILY 11/14 completed Not Available Not Available Not Available duloxetine 20 mg capsule,del ayed release active Not Available Not Available Not Available duloxetine 30 mg capsule,del ayed release TAKE 1 CAPSULE BY MOUTH EVERY DAY 07/30 completed Not Available Not Available Not Available chlorhexidi ne gluconate 0.12 % mouthwash SWISH AND SPIT 15ML 2 TIMES DAILY FOR 2 WEEKS 07/30 completed Not Available Not Available Not Available calcium one tablet daily 02/21 completed Not Available Not Available Not Available multivitami n taking one PO daily 02/21 completed Not Available Not Available Not Available Vitamin B12 taking PO once daily 11/04 completed Not Available Not Available Not Available aprepitant 40 mg capsule 11/03 completed Not Available Not Available Not Available Humira Pen 40 mg/0.8 mL subcutaneou s kit 05/26 completed Not Available Not Available Not Available fenofibrate nanocrystal lized 145 mg tablet Take 1 tablet every day by oral route for 30 days. 07/30 completed Not Available Not Available Not Available Enbrel SureClick 50 mg/mL (1 mL) subcutaneou s pen injector 05/26 completed Not Available Not Available Not Available oxycodone 10 mg tablet TAKE 1 TABLET BY MOUTH EVERY 4-6 HOURS NEEDED FOR PAIN FOR 30 DAYS. MAX 5 TAB/DAY active Not Available Not Available No t Available Synvisc-One 48 mg/6 mL intra-artic ular syringe Take 6 mL by intraarti cular route as directed, for osteoarth ritis of left knee. 2024 active Not Available Not Available Not Avai lable Suprep Bowel Prep Kit 17.5 gram-3.13 gram-1.6 gram oral solution active Not Available Not Available Not Available Thera-M 9 mg iron-400 mcg tablet 07/15 completed Not Available Not Available Not Available OneTouch Delica Lancets 30 gauge USE TWICE DAILY DIRECTED 12/28 completed Not Available Not Available Not Available Vascepa 1 gram capsule active Not Available Not Available Not Available Yuvafem 10 mcg vaginal tablet prn 02/06 completed Not Available Not Available Not Available OneTouch Ultra Blue Test Strip 08/28 completed Not Available Not Available Not Available Nexletol 180 mg tablet active Not Available Not Available Not Available Nexlizet 180 mg-10 mg tablet 11/29 completed Not Available Not Available Not Available Vitals Date Recorded Body height Body mass index (BMI) Body weight Provider Name and Address Organization Details Last Updated DateTime 11/29/2024 154.94 cm 24.6 kg/m2 50019.01 g DEVON Rubin [facility] [employer] 11/29/2024 13:57:10 Date Recorded Heart rate Heart rate Respiratory rate Provider Name and Address Organization Details Last Updated DateTime 12/06/2024 61 /min 61 /min 15 /min Bal Capone MD [address] [place] [address], [facility], [place], [address], [facility] [employer] 12/06/2024 11:27:01 Date Recorded Body height Body mass index (BMI) Body weight Body temperature Oxygen saturation Oxygen saturation in Arterial blood by Pulse oximetry Systolic And Diastolic Provider Name and Address Organization Details Last Updated DateTime 5 154.94 cm 26.1 kg/m2 26841.7 5 g 97.6 [degF] 97 % 97 % 124/78 mm[Hg] Kennedi Nagel MA [facility] [employer] 11:06:45 Date Recorded Body height Body mass index (BMI) Body weight Body temperature Heart rate Oxygen saturation Oxygen saturation in Arterial blood by Pulse oximetry Systolic And Diastolic Provider Name and Address Organization Details Last Updated DateTime 5 154.94 cm 26.6 kg/m2 31237.5 2 g 98.6 [degF] 65 /min 98 % 98 % 136/78 mm[Hg] Marjorie Tristan MA [facility] [employer] 5 09:30:29 Date Recorded Body height Body mass index (BMI) Body weight Provider Name and Address Organization Details Last Updated DateTime 03/02/2025 154.94 cm 24.6 kg/m2 04853.01 g Marilynnmadeleine Escudero CNA [facility] [employer] 03/02/2025 11:06:55 Date Recorded Heart rate Heart rate Respiratory rate Provider Name and Address Organization Details Last Updated DateTime 09/06/2024 64 /min 64 /min 14 /min Bal Capone MD [address] [place] [address], [address], [facility] [employer] 09/06/2024 12:12:48 Date Recorded Body height Body mass index (BMI) Body weight Body temperature Oxygen saturation Oxygen saturation in Arterial blood by Pulse oximetry Systolic And Diastolic Provider Name and Address Organization Details Last Updated DateTime 154.94 cm 26.1 kg/m2 49378.7 5 g 97.5 [degF] 97 % 97 % 108/70 mm[Hg] Kennedi Nagel MA [facility] [employer] 11:51:22 Social History Question Answer Notes LastModified by Organization Details LastModified Time Tobacco Smoking Status Never Smoker GIGI Bacon, [facility] 07/07/2023 11:48:19 Do You Have An Advance Directive? No [id number] Information not available 01/15/2023 Is Blood Transfusion Acceptable In An Emergency? Yes Information not available 05/06/2024 What Is Your Level Of Caffeine Consumption? Heavy One Cup Coffee Per Day Information not available 05/13/2024 In The 14 Days Before Symptom Onset, Have You Had Close Contact With A Laboratory-confi rmed COVID-19 While That Case Was Ill? No Covid Positive 12/04/21 [email or web address] Information not available 07/07/2023 In The 14 Days Before Symptom Onset, Have You Had Close Contact With A Person Who Is Under Investigation For COVID-19 While That Person Was Ill? No [email or web address] Information not available 07/07/2023 What Type Of Diet Are You Following? REGULAR Weight Watchers [id number] Information not available 01/15/2023 What Is The Highest Grade Or Level Of School You Have Completed Or The Highest Degree You Have Received? [id number] [email or web address] Information not available 07/07/2023 Do You Have An Electrostatic Air Filter? No [email or web address] Information not available 07/07/2023 Have There Been Any Changes To Your Family Or Social Situation? No [email or web address] Information not available 07/07/2023 What Is The Fluoride Status Of Your Home? Unknown Information not available 07/07/2023 Are There Any Guns Present In Your Home? No [email or web address] Information not available 07/07/2023 Do You Have A Humidifier? No [email or web address] Information not available 07/07/2023 Do You Use Insect Repellent Routinely? No [email or web address] Information not available 07/07/2023 Where Do You Live? SingleLevelHouse [email or web address] Information not available 07/07/2023 Presence Of Domestic Violence No [email or web address] Information not available 05/06/2024 Guns Present In The Home? No [email or web address] Information not available 05/06/2024 Are You Able To Care For Yourself? Yes [email or web address] Information not available 05/06/2024 Are You Blind Or Do Yo Have Difficulty Seeing? No [email or web address] Information not available 05/06/2024 Are You Deaf Or Do You Have Serious Difficulty Hearing? No [email or web address] Information not available 05/06/2024 General Stress Level? Moderate [email or web address] Information not available 05/06/2024 Live Alone Of With Others? Alone [email or web address] Information not available 05/06/2024 Do You Have A Medical Power Of Advertising Account Executive? No [email or web address] Information not available 07/07/2023 Do You Have Moisture Problems In Your Home? No Information not available 07/07/2023 What Was The Date Of Your Most Recent Tobacco Screening? 01/13/2025 [email or web address] Information not available 01/13/2025 Do You Have Any Pets? Yes One Dog Inside The Home Information not available 05/06/2024 What Is Your Relationship Status? [id number] Information not available 01/15/2023 Do You Use Your Seat Belt Or Car Seat Routinely? Yes [email or web address] Information not available 07/07/2023 Do You Have Smoke And Carbon Monoxide Detectors In Your Home? Yes [email or web address] Information not available 07/07/2023 Are You Passively Exposed To Smoke? No [email or web address] Information not available 07/07/2023 Are There Any Smokers In Your House? No [email or web address] Information not available 07/07/2023 What Types Of Sporting Activities Do You Participate In? None Information not available 05/06/2024 Do You Use Sunscreen Routinely? Yes [email or web address] Information not available 07/07/2023 Has Tobacco Cessation Counseling Been Provided? No [email or web address] Information not available 07/07/2023 Have You Recently Traveled Abroad? No [email or web address] Information not available 07/07/2023 Do You Have Any Dietary Restrictions? No Information not available 07/07/2023 Sex: Unknown Functional Status Question Answer Note LastModified by Organizat ion Details LastModified Time Do you use any illicit or recreational drugs? No [email or web address] Information not available 07/07/2023 Do you or have you ever used any other forms of tobacco or nicotine? No [email or web address] Information not available 07/07/2023 What is your level of alcohol consumption? None [id number] Information not available 01/15/2023 Are you currently employed? No disability Information not available 05/06/2024 Have you been exposed to chemicals or toxins? not that aware of [email or web address] Information not available 05/27/2024 What is your exercise level? Occasional Information not available 05/13/2024 Mental Status Question Answer Note LastModified by Organization D etails LastModified Time Do you feel stressed (tense, restless, nervous, or anxious, or unable to sleep at night)? [id number] [email or web address] Information not available 07/07/2023 Family History Relationship Description Onset Age of this Age Resolved Age Notes LastModified by Organization Details LastModified Time Maternal Grandmother Heart disease [id number] Not available 01/15/2023 05:55:23 Father Heart disease [id number] Not available 01/15/2023 05:55:23 Father Rheumatoid arthritis Not available 03/02 11:05:28 Paternal Grandfather Heart disease [id number] Not available 01/15/2023 05:55:23 Mother Heart disease [id number] Not available 01/15/2023 05:55:23 Maternal Uncle Malignant neoplasm of bone Not available 03/02 11:05:28 Maternal Uncle Heart disease [email or web address] Not available 2023 11:43:10 Medical History Condition Response NERVE DISEASE N BLINDNESS N RHEUMATIC FEVER N KIDNEY STONES N BLADDER PROBLEMS N MRSA N OTHER # 1 N POLIO N LUNG DISEASE/DISORDER N HISTORY OF DRUG ABUSE N RADIATION / CHEMOTHERAPY N COPD N Other # 2 N BLOOD DISEASES N EAR OR HEARING PROBLEMS N MUMPS N SHINGLES N DEPRESSION (INCLUDING POST ) N BOWEL PROBLEMS N STROKE/TIA N ULCERS N BENIGN PROSTATIC HYPERPLASIA N MEASLES N HYPOTENSION N MYOCARDIAL INFARCTION N OBESITY N GERD/NAUSEA N ANEURYSM N URINARY/BLADDER/KIDNEY PROBLEMS N CORONARY ARTERY DISEASE (CAD) N ADDICTION CONCERNS N Impotence N ENDOMETRIOSIS N USE OF BLOOD THINNERS N SKIN PROBLEMS N GASTROINTESTINAL DISORDER N PERIPHERAL VASCULAR DISEASE N MUSCLE,JOINT OR BONE PROBLEMS N GASTROINTESTINAL BLEEDING N BLOOD CLOTS N ASTHMA N CATARACTS N ERECTILE DYSFUNCTION N VARICOSITIES N GI PROBLEMS N Low Testosterone N INFERTILITY N AIDS/HIV N CHEMOTHERAPY / RADIATION N LIVER DISEASE N MALE HYPOGONADISM N HYPERTENSION Y Deficiency N TOURETTE'S N ANXIETY DISORDER N BLOOD TRANSFUSION N ANEMIA/BLOOD DISORDER Y CHRONIC EAR INFECTIONS N BRONCHITIS N TUBERCULOSIS N GLAUCOMA N FOOT PROBLEM N DIVERTICULITIS N SLEEP APNEA Y CHICKENPOX N INFECTIOUS DISEASE N PROSTATE N HEART ARRHYTHMIA N INSOMNIA N HIGH CHOLESTEROL / HYPERLIPIDEMIA Y HYPERTHYROIDISM N EYE PROBLEMS N EDEMA N CHRONIC PAIN SYNDROME N HYPOTHYROIDISM N CONSTIPATION N CAROTID BLOCKAGE N BACK / NECK PROBLEMS N HAVE YOU BEEN HOSPITALIZED OR SEEN IN [facility] IN THE PAST YEAR ? N ATHEROSCLEROSIS N BREAST PROBLEMS N DIALYSIS N ECZEMA N OSTEOPOROSIS N ARTHRITIS Y NO SIGNIFICANT PAST MEDICAL HISTORY N APPENDICITIS N DIABETES, TYPE N BAD TEETH N ENT N HEARTBURN / REFLUX N AUTISM SPECTRUM DISORDER (ASD) N HEPATITIS / LIVER DISEASE N GOUT N SLEEP DISORDER N ALZHEIMER'S DISEASE N Brain Problems N HERPES N DEMENTIA N SEIZURES/EPILEPSY N HEADACHES/MIGRAINES N VASCULAR DISEASE N PACEMAKER N Blood Disorder N DIZZINESS N KIDNEY DISEASE N HEART DISEASE/HEART PROBLEMS N MULTIPLE SCLEROSIS N CARDIAC ARRHYTHMIA N CANCER: SPECIFY N Gall Stones N ATRIAL FIBRILLATION N PULMONARY EMBOLISM N AUTOIMMUNE DISEASE N Gynecological History Statement/Question Response How many live births 2 Date of Last Mammogram Date of LMP Most Recent Bone Density Date of Last Pap Current Control Method Hysterectom y Obstetrics History GPAL:G 3 P 2 0 1 2 Type Value Multiple Births 0 Full Term 2 Induced 0 Spontaneous 1 Premature 0 Living 2 Ectopics 0 Total 3 Immunizations Vaccine Type Date Status Note Provider Nam e and Address Organization Details Recorded Time Influenza, split virus, quadrivalent, preservative 0 completed Karina Mora CCM null, [facility] 04/14/2024 20:26:06 COVID-19, mRNA, LNP-S, bivalent, PF, 50 mcg/0.5 mL or 25mcg/0.25 mL dose 2 completed [facility] 20:26:06 zoster recombinant 4 completed Ludy Blake [facility] 08/30/2024 14:30:32 RSV, recombinant, protein subunit RSVpreF, adjuvant reconstituted, 0.5 mL, PF 4 completed [facility] Blake [facility] 08/30/2024 14:31:26 Influenza, recombinant, trivalent, PF 4 completed uLdy Blake [facility] 08/30/2024 14:32:05 COVID-19, mRNA, LNP-S, PF, 100 mcg/0.5mL dose or 50 mcg/0.25mL dose 2 completed [facility] 04/14/2024 20:26:06 COVID-19, mRNA, LNP-S, PF, 100 mcg/0.5mL dose or 50 mcg/0.25mL dose 1 completed [facility] 04/14/2024 20:26:06 COVID-19, mRNA, LNP-S, PF, 100 mcg/0.5mL dose or 50 mcg/0.25mL dose 1 completed AMANUEL He, [place] - [facility] 04/14/2024 20:26:06 influenza, unspecified formulation 6 completed Not Available [facility] 11/21/2023 00:31:10 Influenza, split virus, quadrivalent, PF 2 completed Not Available [facility] 11/21/2023 00:31:10 Influenza, split virus, quadrivalent, PF 1 completed Not Available [facility] 11/21/2023 00:31:10 pneumococcal polysaccharide PPV23 9 completed Not Available [facility] 11/21/2023 00:31:10 Influenza, split virus, quadrivalent, PF 9 completed Not Available [facility] 11/21/2023 00:31:10 Influenza, split virus, quadrivalent, PF 8 completed Not Available [facility] 11/21/2023 00:31:10 Past Encounters Encounter ID Performer Location Encounter Start Date Encounter Closed Date Diagnosis/Indication Diagnosis SNOMED-CT Code Diagnosis ICD10 Code Diagnosis Note [id number] Barb cameron MD [facility] [address] [address] 07/30/2021 00:00:00 07/30/2021 21:43:47 [id number] [facility]G [facility] [address] [place] [address] 08/20/2021 00:00:00 08/20/2021 13:11:13 [id number] Barb cameron MD [facility]_G Internal Med [facility] [address] [address] 08/20/2021 00:00:00 08/20/2021 15:12:02 [id number] Barb cameron MD S_G Internal Med [facility] [address] [address] 10/04/2021 00:00:00 10/04/2021 18:57:44 [id number] MD JIM Graham_GMRadha Internal Med [facility] [address] [facility] [address] [address] 10/25/2021 00:00:00 10/25/2021 19:36:23 [id number] MD JIM Graham_GMG Internal Med [facility] [address] [facility] [address] [address] 12/06/2021 00:00:00 12/06/2021 17:52:34 [id number] MD JIM Graham_GMG Internal Med [facility] [address] [facility] [address] 12/25/2021 00:00:00 12/25/2021 10:56:28 [id number] MD [facility] [address] [facility] [address] [place] [address] 01/01/2022 00:00:00 01/01/2022 09:54:02 [id number] MD JIM Graham_GMG Internal Med [facility] [address] [facility] [address] 02/28/2022 00:00:00 02/28/2022 17:19:37 [id number] MARGOT DamonRadha Pulmonolo gy [place] [address] [place] [address] 05/13/2022 00:00:00 05/13/2022 14:40:07 [id number] MD MAXIME GrahamGMRadha Internal Med [facility] [address] [facility] [address] 05/30/2022 00:00:00 05/30/2022 18:16:57 [id number] MARGOT Damon Pulmonolo [facility] [place] [address] [place] [address] 09/04/2022 00:00:00 09/04/2022 14:11:45 [id number] Barb cameron MD [facility] Internal Med [facility] [address] [place] [address]., [address] [address] 09/26/2022 00:00:00 09/26/2022 18:25:46 [id number] Barbara Burroughs, [facility] Pulmonolo gy [place] [address] [address] [place] [address] 10/16/2022 00:00:00 10/16/2022 13:26:12 [id number] Barb cameron MD [facility] Internal Med [facility] 15 2043 [facility] [address] [address] 11/07/2022 00:00:00 11/07/2022 11:40:49 [id number] Barb cameron MD [facility] Internal Med [facility] 15 2043 [facility] [address] [address] 02/17/2023 11:46:51 02/17/2023 12:23:34 Essential hypertension 92433148 I10 on metoprolol , olmesartan continue to keep BP logs at home, call office if SBP > 150 or DBP >90 Hyperlipidemia 01664973 E78.5 on rosuvastat in Hypokalemia 45727412 E87 .6 on K+ supplement Obstructiv e sleep apnea of adult 0530227423 103 G47.33 on cpapfollow s pulm for compliance - Barbara Burroughs Type 2 jeanne betes mellitus without complication 415342624 E11.9 lifestyles measures, no meds currently Vitamin D deficiency 347 35025 E55.9 on supplement Iron defic iency anemia 56267465 D50.9 on supplement Chronic pain syndrome 37 7651501 G89.4 follows pain management - Dr. Vladimir Osborne in [facility] hydrocodon e and gabapentin from [facility] is aware I cannot fill prison pain meds Rheumatoid arthritis 698 97726 M06.9 now following [facility] rheumatolo gy Intermitte nt palpitations 794593956 R00.2 now following cardiology - Dr. Nunez/p testing Memory impairment 825708 006 R41.3 MMSE= 23 on 08/20/21s/p MRINow following Dr. Hanks over at [facility] memory clinic/[facility] rology- he has ordered memory testing for her, encouraged her to schedule Blood in urine 83038547 R31.9 following urology- Dr. Schultz Cobalamin deficiency 190 589460 E53.8 on PO B12 supplement Generalize d anxiety disorder 96007945 F41.1 on lexapro, she is aware of side effects, risks, benefitsca ll office if any change in mood or behaviorsh e declines psychiatry referral Chronic sinusitis 567486 00 J32.9 continue claritin daily, add flonasecal l office if no improvemen t after 1-2 weeks and we can give her referral to ENT Pain of bi lateral knee joints 4109820449 19696 M25.561 M25.562 Recommend physical therapy-sh donald declines as it is not affordable for her Will give her some home exercises to try She is following pain management for this and has injection scheduled later this week Plans to get replacemen t of the left knee later this year, is trying to put it off until fall [id number] Barbara Burroughs, TELECASTING TECHNICIAN-[facility]_GMG Pulmonolo gy [place] [address] [place] [address] 02/26/2023 13:57:29 02/26/2023 15:15:57 Obstructive sleep apnea syndrome 17690856 G47.33 Home sleep study done 04/02/17 showed AHI of 40.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 If unable to fall asleep after 30 minutes, patient should get out of bed but should not engage in any activity that requires sustained mental alertness. -Maintain a regular bedtime and wake-up time even on weekends-A void excessive naps during the daytime. If a nap is necessary, limit it to no more than 30 minutes.-M inimize environmen cally noise, bright lights, and extremes in bedroom temperatur e.-Avoid alcohol, caffeinate d beverages, and nicotine products for at least 6 hours prior to bedtime.-A void strenuous exercise and large meals for at least 4 hours prior to bedtime. 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 If unable to fall asleep after 30 minutes, patient should get out of bed but should not engage in any activity that requires sustained mental alertness. -Maintain a regular bedtime and wake-up time even on weekends-A void excessive naps during the daytime. If a nap is necessary, limit it to no more than 30 minutes.-M inimize environmen cally noise, bright lights, and extremes in bedroom temperatur e.-Avoid alcohol, caffeinate d beverages, and nicotine products for at least 6 hours prior to bedtime.-A void strenuous exercise and large meals for at least 4 hours prior to bedtime.Or matthew for chin strap todayDownl oad in one month Deviated nasal septum 12 2898369 J34.2 Needs to see ENT, previous referral entered [id number] Barb cameron MD S_G Internal Med [facility] 15 2043 [facility], [facility] [address] [place] [address] 07/07/2023 11:47:15 07/07/2023 12:18:02 Essential hypertension 95383028 I10 on metoprolol , olmesartan continue to keep BP logs at home, call office if SBP > 150 or DBP >90 Hyperlipidemia 34387683 E78.5 on rosuvastat in Hypokalemia 73429879 E87 .6 on K+ supplement Obstructiv e sleep apnea of adult 8374796423 103 G47.33 on cpapfollow s pulm for compliance - Barbara Burroughs Type 2 jeanne betes mellitus without complication 909409899 E11.9 lifestyles measures, no meds currently Vitamin D deficiency 347 12773 E55.9 on supplement Iron defic iency anemia 32025965 D50.9 on supplement Chronic pain syndrome 37 0429022 G89.4 follows pain management - Dr. Vladimir Osborne in [facility] hydrocodon e and gabapentin from [facility] is aware I cannot fill prison pain meds Rheumatoid arthritis 698 85829 M06.9 now following [facility] rheumatolo gy Intermitte nt palpitations 020006352 R00.2 now following cardiology - Dr. Nunez/p testing Memory impairment 120839 006 R41.3 MMSE= 23 on 08/20/21s/p MRINow following Dr. Hanks over at [facility] memory clinic/[facility] rology- he has ordered memory testing for her, encouraged her to schedule Blood in urine 92710089 R31.9 following urology- Dr. Schultz Cobalamin deficiency 190 882579 E53.8 on PO B12 supplement Generalize d anxiety disorder 96946999 F41.1 on lexapro, she is aware of side effects, risks, benefitsca ll office if any change in mood or behaviorsh e declines psychiatry referral Chronic sinusitis 238726 00 J32.9 continue claritin daily, add flonasecal l office if no improvemen t after 1-2 weeks and we can give her referral to ENT Pain of bi lateral knee joints 2254095330 54179 M25.561 M25.562 Recommend physical therapy-sh e declines as it is not affordable for Wiliam give her some home exercises to tryPavithra is following pain management for this and has injection scheduled later this weekPlans to get replacemen t of the left knee later this year, is trying to put it off until fall Screening mammography 24 248568 Z12.31 Deformity of sternum 298 824394 M95.4 get XR Liver enzy mes level above reference range 901679398 R74.8 bariatrics has ordered repeat labs/ has ordered liver MRI- has scheduled in 2 weeks [id number] Barbara Burroughs, [facility] Pulmonolo gy [facility] [address] [place] [address] 08/22/2023 13:59:05 08/22/2023 14:21:15 Obstructive sleep apnea syndrome 61396479 G47.33 Home sleep study done 04/02/17 showed AHI of 40.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 If unable to fall asleep after 30 minutes, patient should get out of bed but should not engage in any activity that requires sustained mental alertness. -Maintain a regular bedtime and wake-up time even on weekends-A void excessive naps during the daytime. If a nap is necessary, limit it to no more than 30 minutes.-M inimize environmen cally noise, bright lights, and extremes in bedroom temperatur e.-Avoid alcohol, caffeinate d beverages, and nicotine products for at least 6 hours prior to bedtime.-A void strenuous exercise and large meals for at least 4 hours prior to bedtime.Co ntinue chin strap use.Discus sed supply cleaning and replacemen tShe is aware of reportable signs and symptomsSh e should follow up in 6-12 months [id number] Barb cameron MD S[facility] Internal [facility] 15 2043 [facility], [address] [place] [address] 11/03/2023 11:46:55 11/03/2023 12:31:32 Essential hypertension 28860733 I10 on metoprolol , olmesartan continue to keep BP logs at home, call office if SBP > 150 or DBP >90 Hyperlipidemia 92238319 E78.5 on rosuvastat in Hypokalemia 36465369 E87 .6 on K+ supplement Obstructiv e sleep apnea of adult 6260316664 103 G47.33 on cpapfollow s pulm for compliance - Barbara Burroughs Type 2 jeanne betes mellitus without complication 398909037 E11.9 lifestyles measures, no meds currently Vitamin D deficiency 347 56205 E55.9 on supplement Iron defic iency anemia 30695010 D50.9 on supplement Chronic pain syndrome 37 1334710 G89.4 follows pain management - Dr. Vladimir Osborne in [facility] hydrocodon e and gabapentin from [facility] is aware I cannot fill prison pain meds Rheumatoid arthritis 698 33790 M06.9 now following [facility] rheumatolo gy Intermitte nt palpitations 808662705 R00.2 now following cardiology - Dr. Nunez/p testing Memory impairment 176893 006 R41.3 MMSE= 23 on 08/20/21s/p MRINow following Dr. Latonya lopez at [facility] memory clinic/[facility] rology- he has ordered memory testing for her, encouraged her to schedule Blood in urine 40004921 R31.9 following urology- Dr. Schultz Cobalamin deficiency 190 203832 E53.8 on PO B12 supplement Generalize d anxiety disorder 67962433 F41.1 on lexapro, she is aware of side effects, risks, benefitsca ll office if any change in mood or behaviorsh e declines psychiatry referral Chronic sinusitis 489353 00 J32.9 continue claritin daily, add flonasecal l office if no improvemen t after 1-2 weeks and we can give her referral to ENT Pain of bi lateral knee joints 6701634676 06297 M25.561 M25.562 Recommend physical therapy-sh e declines as it is not affordable for herWill give her some home exercises to tryShdonald is following pain management for this and has injection scheduled later this weekPlans to get replacemen t of the left knee later this year, is trying to put it off until fall Liver enzy mes level above reference range 967141083 R74.8 has been referred to hepatology at [facility] 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 9265322155 79638 D49.[address] [facility] 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 Carvajal, will refer to Dr. 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 [place] [address] 11/19/2023 10:08:51 11/19/2023 10:51:44 Pain of left wrist 7575696935 10281 M25.133 [id number] Barb cameron MD [facility] 15 [address]43 [facility] [address] [place] [address] 01/08/2024 11:50:30 01/08/2024 13:01:18 Screening - NAD 138933575 Z13.9 C-scope: 04/06/2025 Dr Nathalia salmeron, next in 10 years Mammogram: Get thisPAP: Get thisDEXA: 09/06 Get yearly flu shotGet tdap if not doneGet shingrix vaccineGet COVID 19 vaccine and its boostersGe t RSV vaccine RTC in 3 months, do labs, ER if worse, she did verbalize her understand ing of the above Screening for malignant neoplasm of breast 227782260 Z12.39 Gynecologi c examination 82139159 Z01.419 Essential hypertension 60753201 I10 On metoprolol ER 100mg bidOn olmesartan -HCTZ 20-12.5mg dailyOn KGet labs Obstructiv e sleep apnea syndrome 50621129 G47.33 Get a referral to pulmonary Chronic pain syndrome 37 1647857 G89.4 On gabapentin 300mg 2 caps tidOn hydrocodon e 10-325mg 4 to 6 hours, explained to discuss with her pain management regarding the use of tylenol, as per LFT are elevated, she states that she will discuss about getting off thisSees Pain management Dr Osborne in [facility] Rheumatoid arthritis 698 22425 M06.9 Sees [facility] rheumatolo gy Hyperlipidemia 26007434 E78.5 On rosuvastat in 40mg dailyGet labs Memory impairment 107773 [address] Hanks at [facility] Blood in urine 36341707 R31.[address] Marion Davidson d anxiety disorder 59410932 F41.1 On lexapro 20mg dailyNot suicidal or homicidalD oes not want to see psychiatry Liver enzy mes level above reference range 956992116 R74.01 Hep panel: Neg 03/10/2023 GGT 135: 03/10/2023 US liver 03/10/2023 : Neg Needs to see GI hepatology 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 1007636742 36691 D49.0 Sees GI in [facility], will now refer to Dr Woody hawley bonifacio syndrome of left wrist 3255804171 75113 G56.02 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 11/19/2023 Lesion of nose 272530704 J34.89 She did not keep her apt with ENT, will refer, slight red excoriated area at the entrance of the L nostril 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 Should keep her apt with her bariatric surgeon Vitamin D deficiency 347 03282 E55.9 [id number] Bal Capone MD [facility] Pulmonolo gy [address] [address] 03/09/2024 10:16:54 03/10/2024 08:52:04 Obstructive sleep apnea syndrome 95402299 G47.33 [id number] Barb cameron MD [facility] 2043 [facility], [address] [address] 04/14/2024 20:24:37 07/22/2024 12:25:05 Generalized anxiety disorder 27526898 F41.1 Hypertensive disorder 38 710287 I10 [id number] Francesco Willard MD [facility] [place] [address] [place] [address] 04/29/2024 15:04:51 04/29/2024 15:53:15 Pain of left wrist 8655841009 94221 M25.532 Carpal marleen bonifacio syndrome of left wrist 4006618875 08724 G56.02 G56.22 Ulnar nerv e entrapment at elbow 841140420 G56.22 [id number] Barb cameron MD [facility] 2043 [facility], [address] [address] 05/06/2024 11:24:29 05/06/2024 13:00:11 Adult health examination 805015028 Z00.00 Screening for disorder 342929770 Z13.9 Screening - NAD 95886471 3 Z13.9 C-scope: 04/06/2025 Dr Nathalia salmeron, next in 10 years Mammogram: 09/11/2023 : Neg PAP: Get this DEXA: 08/17/21: Negative Get yearly flu shotGet tdap if not doneGet shingrix vaccineGet COVID 19 vaccine and its boostersGe t RSV vaccine RTC in 3 months, do labs, ER if worse, she did verbalize her understand ing of the above Screening for malignant neoplasm of breast 649236227 Z12.39 Gynecologi c examination 41481570 Z01.419 Essential hypertension 32551052 I10 On metoprolol ER 100mg bidOn olmesartan -HCTZ 20-12.5mg dailyOn KGet labs Dr Corona [facility] 03/01/2024 , f/u in 6 months Obstructiv e sleep apnea syndrome 98816466 G47.33 Dr Capone 03/09/2024 Chronic pain syndrome 37 4984976 G89.4 On gabapentin 300mg 2 caps tidOn hydrocodon e 10-325mg 4 to 6 hours, explained to discuss with her pain management regarding the use of tylenol, as per LFT are elevated, she states that she will discuss about getting off thisSees Pain management Dr Osborne in [facility] [place] 05/06/2024 :On oxycodone 10mg 4-[address] OsborneOn gabapentin 300mg [address] Osborne Rheumatoid arthritis 698 10433 M06.9 Sees [facility] rheumatolo gy Hyperlipidemia 38640974 E78.5 On rosuvastat in 40mg dailyGet labs Memory impairment 823070 [address] Hanks at [facility] Blood in urine 81937108 R31.[address] Marion diallo anxiety disorder 43157906 F41.1 On lexapro 20mg dailyNot suicidal or homicidalD oes not want to see psychiatry Liver enzy mes level above reference range 816263551 R74.01 Hep panel: Neg 03/10/2023 GGT 135: 03/10/2023 US liver 03/10/2023 : Neg Needs to see GI hepatology Duyen Ramos FINANCIAL SERVICE REPRESENTATIVE 02/06/2024 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 1725944472 27639 D49.0 Sees GI in [facility], will now refer to Dr Mckay Has seen Dr Sheikh GI 08/12/2023 Carpal marleen bonifacio syndrome of left wrist 3039731785 40276 G56.02 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 11/19/2023 Lesion of nose 794817955 J34.89 She did not keep her apt with ENT, will refer, slight red excoriated area at the entrance of the L nostril 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 Should keep her apt with her bariatric surgeon Vitamin D deficiency 347 94783 E55.9 Pain of left wrist 08971 70967 87451 M25.532 Juan Alberto LEONARD ortho 04/29/2024 [id number] Barb cameron MD [facility] [place] [address] [facility], [facility] 15 [place] [address] 05/13/2024 21:00:31 08/04/2024 11:25:45 Type 2 diabetes mellitus without complication 786170735 E11.9 Hypertensive disorder 38 590787 I10 [id number] Bal Capone MD [facility] Pulmonolo gy [place] [address] [place], [place] [address] 05/27/2024 08:20:42 05/28/2024 08:36:06 Obstructive sleep apnea syndrome 15635079 G47.33 [id number] Barb cameron MD [facility] Internal Med [facility] [address] [place], [place] [address] 06/10/2024 18:13:24 08/05/2024 15:12:38 Postgastric surgery syndrome 67516374 K91.1 Obstructiv e sleep apnea syndrome 81270330 G47.33 Essential hypertension 26569960 I10 Type 2 jeanne betes mellitus without complication 292633090 E11.9 [id number] Francesco Willard MD [facility] [place] [address] [place] [address] 06/16/2024 11:37:12 06/16/2024 11:57:23 Carpal tunnel syndrome of left wrist 9534315347 63216 G56.02 [id number] Barb cameron MD [facility] [address] [place] [address] 07/15/2024 11:46:14 07/15/2024 12:46:05 Screening - NAD 275276018 Z13.9 C-scope: 04/06/2025 Dr Nathalia salmeron, next in 10 years Mammogram: 09/11/2023 : Neg PAP: Get this DEXA: 08/17/21: Negative Get yearly flu shotGet tdap if not doneGet shingrix vaccineGet COVID 19 vaccine and its boostersGe t RSV vaccine RTC in 3 months, do labs, ER if worse, she did verbalize her understand ing of the above Screening for malignant neoplasm of breast 354874698 Z12.39 Gynecologi c examination 04810299 Z01.419 Essential hypertension 18456882 I10 On metoprolol ER 100mg bidOn olmesartan -HCTZ 20-12.5mg dailyOn KGet labs Dr Corona [facility] 03/01/2024 , f/u in 6 months Obstructiv e sleep apnea syndrome 55436255 G47.33 Dr Capone 03/09/2024 Sleep study 05/19/2024 Chronic pain syndrome 37 7771021 G89.4 On gabapentin 300mg 2 caps tidOn hydrocodon e 10-325mg 4 to 6 hours, explained to discuss with her pain management regarding the use of tylenol, as per LFT are elevated, she states that she will discuss about getting off thisSees Pain management Dr Osborne in [facility] 05/06/2024 :On oxycodone 10mg 4-[address] OsborneOn gabapentin 300mg [address] Osborne [place] 07/15/2024 :Does wellOn oxycodone Rheumatoid arthritis 698 13433 M06.9 Sees [facility] rheumatolo gy Hyperlipidemia 44549638 E78.5 On rosuvastat in 40mg daily, stopped d/t muscle aches and LFTs elevatedWi ll start on nexletolGe t labs Memory impairment 809906 [address]anks at [facility] Blood in urine 20376694 R31.[address] Marion diallo anxiety disorder 15552866 F41.1 On lexapro 20mg dailyNot suicidal or homicidalD oes not want to see psychiatry Liver enzy mes level above reference range 533713096 R74.01 Hep panel: Neg 03/10/2023 GGT 135: 03/10/2023 US liver 03/10/2023 : Neg Needs to see GI hepatology Duyen Ramos FINANCIAL SERVICE REPRESENTATIVE 02/06/2024 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 2694475735 73011 D49.0 Sees GI in [facility] Dr Mckay/Juan Pablo Sheikh Has seen Dr Sheikh GI 08/12/2023 Carpal marleen bonifacio syndrome of left wrist 1120025003 84633 G56.02 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 11/19/2023 EMG/NCV: Dr Shin neurologis t: 05/25/2024 Dr Willard 06/16/2024 , next apt 07/20/2024 Lesion of nose 498498282 J34.89 She did not keep her apt with ENT, will refer, slight red excoriated area at the entrance of the L nostril Postgastri c surgery syndrome 78133987 K91.1 Should keep her apt with her bariatric surgeon Vitamin D deficiency 347 22437 E55.9 Pain of left wrist 93792 28274 01194 M25.532 Juan Alberto LEONARD ortho 04/29/2024 Anemia 342988045 D64.9 More iron in diet and repeat the labs Coronary arteriosclerosis 84600243 I25.[address] Corona [facility] Folliculitis 08078072 L7 3.9 She popped a 'cyst' on the left lower cheek+ve redness and mild STS notedStart on augmentinN otify if not better [id number] Francesco Willard MD [facility] [place] 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 [place] [address] 08/27/2024 09:38:10 08/27/2024 10:00:35 Carpal tunnel syndrome of left wrist 1695026609 01532 G56.02 [id number] Bal Capone MD [facility] [address] [address] 09/06/2024 10:55:56 09/07/2024 15:34:16 Obstructive sleep apnea syndrome 46108839 G47.33 [id number] Francesco Willard MD [facility] [place] [address] [place] [address] 11/29/2024 13:40:01 11/29/2024 14:35:04 Pain of left knee joint 9370742347 77468 M25.562 Osteoarthr itis of left knee joint 4923383713 47257 M17.12 [id number] Bal Capone MD [facility] Pulmon[address] [place] [address] 12/06/2024 10:51:49 12/06/2024 15:30:41 Obstructive sleep apnea syndrome 25791842 G47.33 [id number] Barb cameron MD [facility] Internal Med [facility] [address] [address] 01/13/2025 09:16:13 01/13/2025 10:12:00 Screening - NAD 748205962 Z13.9 C-scope: 04/06/2025 Dr Sloan n, next in 10 years Mammogram: 09/11/2023 : NegOrdered 01/13/2025 PAP: Get this DEXA: 08/17/21: NegativeOr dered 01/13/2025 Get yearly flu shotGet tdap if not doneGet shingrix vaccineGet COVID 19 vaccine and its boostersGe t RSV vaccine Her handicap parking filled 01/13/2025 RTC in 3 months, do labs, ER if worse, she did verbalize her understand ing of the above Screening for malignant neoplasm of breast 651626863 Z12.39 Gynecologi c examination 86171719 Z01.419 Essential hypertension 09314644 I10 On metoprolol ER 100mg bidOn olmesartan -HCTZ 20-12.5mg dailyOn KGet labs Dr Corona [facility] 03/01/2024 , f/u in 6 monthsDr Corona [facility] 08/23/2024 , f/u in 6 months, was told to start on nexlizet Obstructiv e sleep apnea syndrome 40470797 G47.33 Dr Capone 03/09/2024 Sleep study 05/19/2024 Chronic pain syndrome 37 1741644 G89.4 On gabapentin 300mg 2 caps tidOn hydrocodon e 10-325mg 4 to 6 hours, explained to discuss with her pain management regarding the use of tylenol, as per LFT are elevated, she states that she will discuss about getting off thisSees Pain management Dr Osborne in [facility] 05/06/2024 :On oxycodone 10mg 4-[address] Soriano gabapentin 300mg [address] Osborne [place] 07/15/2024 :Does wellOn oxycodone OV 01/13/2025 :On oxycodone Dr Deuce Denis vised to not take NSAIDs except as PRN Rheumatoid arthritis 698 69388 M06.9 Sees [facility] rheumatolo gy Hyperlipidemia 45712926 E78.5 On rosuvastat in 40mg daily, stopped d/t muscle aches and LFTs elevatedWi ll start on nexletolGe t labs OV 01/13/2025 :Not on any medsGet labs Memory impairment 737934 [address] Hanks at [facility] Blood in urine 26805744 R31.9 States that she feels she has a UTI and she also has noted discomfort post sexSees Dr Schultz, referred 01/13/2025 UA: trace blood 01/13/2025 Will also get on cipro 500mg po bid Generalize d anxiety disorder 82127930 F41.1 On lexapro 20mg dailyNot suicidal or homicidalD oes not want to see psychiatry Liver enzy mes level above reference range 496769559 R74.01 Hep panel: Neg 03/10/2023 GGT 135: 03/10/2023 US liver 03/10/2023 : Neg Needs to see GI hepatology Duyen Ramos FINANCIAL SERVICE REPRESENTATIVE 02/06/2024 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 6912614947 85359 D49.0 Sees GI in [facility] Dr Mckay/Juan Pablo Sheikh Has seen Dr Sheikh GI 08/12/2023 Carpal marleen bonifacio syndrome of left wrist 2839250098 40642 G56.02 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 11/19/2023 EMG/NCV: Dr Shin neurologis t: 05/25/2024 Dr Willard 06/16/2024 , next apt 07/20/2024 Lesion of nose 264137663 J34.89 She did not keep her apt with ENT, will refer, slight red excoriated area at the entrance of the L nostril Postgastri c surgery syndrome 52155629 K91.1 Should keep her apt with her bariatric surgeon Vitamin D deficiency 347 57607 E55.9 Pain of left wrist 34000 13989 73793 M25.532 Juan Alberto LEONARD ortho 04/29/2024 Anemia 646748384 D64.9 More iron in diet and repeat the labs Coronary arteriosclerosis 24311915 I25.[address] Corona [facility] Screening mammography 24 318062 Z12.31 Screening for osteoporosis 464139716 Z13.820 Pain of le ft knee joint 3576089841 19516 M25.562 S/p injection of L knee 11/29/2024 , f/u 03/02/2025 Lesion of skin of face 9785082406 06 L98.9 Flat dark lesion on the R cheek, get a referral to dermatolog y Postmenopausal state 764 75502 Z78.0 [id number] Francesco Willard MD [facility] [place] [address] [place] [address] 03/02/2025 11:03:28 03/02/2025 11:35:02 Osteoarthritis of left knee joint 5520216081 34955 M17.12 Pain of le ft knee joint 2646628834 05741 M25.562 Goals Section Goal Description Progress Status Start Date LastModified by Organization Details LastModified Time Quality of Life Reports satisfaction with quality of life Progressing active 2023 Karina Mora CCM Information not available 05/13/2024 22:34:59 Exercise Regularl y Follows a regular exercise regimen or instructed exercise plan as per care team recommendation (s) Progressing active 2023 Karina Mora CCM Information not available 05/13/2024 22:35:01 Healthy Weight Maintain a healthy body weight as recommended by your care team NoChange active 2023 Karina Mora CCM Information not available 04/27/2024 15:05:03 Adequate Sleep Achieves adequate, well-rested sleep with minimal disruption Progressing active 2023 Karina Mora CCM Information not available 05/13/2024 22:35:08 Follow-u p Appointm ent(s) Attends referral and/or follow-up appointment(s) as per care team recommendation (s) Progressing active 2023 Karina Mora CCM Information not available 05/13/2024 22:35:10 Activiti es of Daily Living Performs activities of daily living independently or with minimal assistance Progressing active 2023 Karina Morgan, CCM Information not available 05/13/2024 22:35:16 Adequate Housing Conditio ns Maintains adequate housing with satisfactory living conditions [facility] Karina Morgan, CCM Information not available 03/30/2024 15:40:07 Decrease d Alcohol Consumpt ion Reports decreased alcohol consumption as per care team recommendation (s) [facility] active 2023 Karina Morgan, CCM Information not available 03/30/2024 15:40:07 Food Security Reports ability to access and obtain foods to meet nutritional needs [facility] Karina Morgan, CCM Information not available 03/30/2024 15:40:07 Family and Social Support Reports family and/or social support needs are met active 2023 Karina Morgan, CCM Information not available 03/30/2024 15:40:07 Home/Env ironment Safety Reports having a safe environment that promotes independence and prevents injury [facility] Karina Morgan, CCM Information not available 04/27/2024 15:05:03 Weight Loss Decreases body weight as per care team recommendation (s) [facility] active 2023 Karina Morgan, CCM Information not available 03/30/2024 15:40:07 Knowledg e of Disease or Conditio n Demonstrates understanding of disease(s) or condition(s) [facility] active 2023 Karina Morgan, CCM Information not available 04/27/2024 15:05:03 Diet Adherenc e Follows prescribed or recommended diet Progressing active 2023 Karina Morgan, CCM Information not available 05/13/2024 22:35:35 Financia l Stabilit y Reports financial status and/or income meets needs [facility] Karina Morgan, CCM Information not available 03/30/2024 15:40:08 Lab Testing Completes lab testing as per care team recommendation (s) [facility] active 2023 Karina Morgan, CCM Information not available 03/30/2024 15:40:08 Diagnost ic Testing Completes diagnostic testing as per care team recommendation (s) [facility] active 2023 Karina Morgan, CCM Information not available 04/27/2024 15:05:03 Treatmen t Regimen Follows treatment regimen as per care team recommendation (s) NoChange active 2023 Karina Mora CCM Information not available 03/30/2024 15:40:08 Health Concerns Section Related Observation LastModified by Organization Detai ls LastModified Time Chronic sick Not Available Not Available Not Available Concern Status LastModified by Organization Details LastModified Time Chronic pain syndrome Active Karina Mora CCM Not Available 04/27/2024 15:0 5:03 Advance Directives Directive N: Payers Insurance Date Sequence Insurance Name Policy Number Policy Mckeon Covered Member ID Mckeon Member ID Guarantor Name 04/04/2025 1 [facility] (MEDICARE REPLACEMENT/A DVANTAGE - HMO) [id number] Briseida Huff [id number] Briseida Huff Notes Date Note Type Note Provider Name and Address Organization Details Recorded Time 09/06/2024 text/html Primary care/Ref erring provider: Rashard Bashir the [facility] home sleep study on 04/02/17, AHI = 40. During the [facility] titration sleep study on 05/19/24, sleep onset = 22 minutes, REM onset = 213.5 minutes, PLMI = 0.0 Her nasal mask was changed to a full face mask due to mouth opening. At home since 05/27/24, the patient uses a [employer] AirSense 11 autoset unit with heated humidification. The patient does not need the ramp to start low and go up slowly on the pressure anymore. There is some xerostomia in a.m. There is no hose/mask condensation with water.The patient wears a [employer] small DreamWear full face mask without chin strap. There is no claustrophobia, no nostril/nose bridge irritation, no facial rash, no facial numbness, no nosebleeding. The patient feels more refreshed upon waking and daytime alertness is improved. Energy levels are sustained until evening hours, around 7 pm. At home, the patient sleeps from 9:30 pm pm to 6 am and wakes up without an alarm. Snoring: moderate, since .Snorting: noChoking: yesCoughing: noGasping: noGagging: noSighing: noWitnessed apnea: yesTwitching or jerking of leg(s), arm(s), body, head: noTeeth grinding: yesTeeth clenching: yesSleeptalking: yesSleepwalking: noSleep crying: yesBedwetting: noTongue/lip/gum/cheek biting: yesSleeping with open mouth: yesSleep paralysis: noHypnagogic hallucinations: noHypnopompic hallucinations: noVivid dreams: noDifficulty with sleep onset: noDifficulty with sleep maintenance: yesSleep interruptions: bodily achesPatient wakes up with: fatigue, xerostomia, mobility impairment, dexterity impairmentDaytime cataplexy: noMorning hypersomnolence: noAfternoon hypersomnolence: yesCaffeine sources in diet: coffee 1 cup per day, tea 4 cups per day, chocolate 1 candy bar per month, energy drink 1/3 can of Monster per day Associated medical and psychiatric conditions:Congestive heart failure: noCoronary artery disease: yesMyocardial infarction: yesHypertension: yesStroke: noBronchial asthma: noChronic obstructive pulmonary disease: noDepression: noBipolar disorder: noAnxiety: yesPanic disorder: noPosttraumatic stress disorder: noAttention deficit and hyperactivity disorder: noObsessive Compulsive disorder: noSchizophrenia: noSchizoaffective disorder: noPersonality disorder: noChronic analgesic use: yes oxycodoneChronic sedative/hypnotic use: no EPWORTH SLEEPINESS SCALE (ESS) CHANCE OF DOZING SCORE0 = would never doze1 = slight chance of dozing2 = moderate chance of dozing3 = high chance of dozing SITUATION AND CHANCE OF DOZINGSitting and reading - 1Watching television - 2Sitting inactive in a public place (e.g. a theater or meeting) - 0As a passenger in a car for an hour without a break - 1Lying down to rest in the afternoon when circumstances permit - 0Sitting and talking to someone - 0Sitting quietly after lunch without alcohol - 1In a car, while stopped for a few minutes in the traffic - 0TOTAL SCORE 5Subjectively, patient has a slight chance of dozing. Bal Capone MD [address] [facility], [place], [address], [place] - [facility] 09/06/2024 12:15:10 12/06/2024 text/html Primary care/Ref erring provider: Barb Doss MD CC: I returned from the full face to the nasal mask. I kept the chin strap. I am still pulling the mask off in the middle of my sleep.During the [facility] home sleep study on 04/02/17, AHI = 40. During the [facility] titration sleep study on 05/19/24, sleep onset = 22 minutes, REM onset = 213.5 minutes, PLMI = 0.0 Her nasal mask was changed to a full face mask due to mouth opening. At home since 09/06/24, the patient uses a [employer] AirSense 11 autoset unit with heated humidification. The patient does not need the ramp to start low and go up slowly on the pressure anymore. There is some xerostomia in a.m. There is no hose/mask condensation with water.The patient switched from a [employer] small DreamWear full face mask back to a Car in [employer] small Eson 2 nasal mask with chin strap. There is no claustrophobia, no nostril/nose bridge irritation, no facial rash, no facial numbness, no nosebleeding. The patient feels more refreshed upon waking and daytime alertness is improved. Energy levels are sustained until evening hours, around 7 pm. At home, the patient sleeps from 9:30 pm pm to 6 am and wakes up without an alarm. Snoring: moderate, since .Snorting: noChoking: yesCoughing: noGasping: noGagging: noSighing: noWitnessed apnea: yesTwitching or jerking of leg(s), arm(s), body, head: noTeeth grinding: yesTeeth clenching: yesSleeptalking: yesSleepwalking: noSleep crying: yesBedwetting: noTongue/lip/gum/cheek biting: yesSleeping with open mouth: yesSleep paralysis: noHypnagogic hallucinations: noHypnopompic hallucinations: noVivid dreams: noDifficulty with sleep onset: noDifficulty with sleep maintenance: yesSleep interruptions: bodily achesPatient wakes up with: fatigue, xerostomia, mobility impairment, dexterity impairmentDaytime cataplexy: noMorning hypersomnolence: noAfternoon hypersomnolence: yesCaffeine sources in diet: coffee 1 cup per day, tea 4 cups per day, chocolate 1 candy bar per month, energy drink 1/3 can of Monster per day Associated medical and psychiatric conditions:Congestive heart failure: noCoronary artery disease: yesMyocardial infarction: yesHypertension: yesStroke: noBronchial asthma: noChronic obstructive pulmonary disease: noDepression: noBipolar disorder: noAnxiety: yesPanic disorder: noPosttraumatic stress disorder: noAttention deficit and hyperactivity disorder: noObsessive Compulsive disorder: noSchizophrenia: noSchizoaffective disorder: noPersonality disorder: noChronic analgesic use: yes oxycodoneChronic sedative/hypnotic use: no EPWORTH SLEEPINESS SCALE (ESS) CHANCE OF DOZING SCORE0 = would never doze1 = slight chance of dozing2 = moderate chance of dozing3 = high chance of dozing SITUATION AND CHANCE OF DOZINGSitting and reading - 1Watching television - 2Sitting inactive in a public place (e.g. a theater or meeting) - 0As a passenger in a car for an hour without a break - 1Lying down to rest in the afternoon when circumstances permit - 0Sitting and talking to someone - 0Sitting quietly after lunch without alcohol - 1In a car, while stopped for a few minutes in the traffic - 0TOTAL SCORE 5Subjectively, patient has a slight chance of dozing. Bal Capone MD [address] [place] [address], [facility] [address], [place], [address], [facility] 12/06/2024 11:27:26 01/13/2025 text/html OV 01/08/2024:He re to establish care Reviewed her past history with her, she feels well, she does need to do her labs OV 05/06/2024: Here for her f/u apt, she is doing well today, she did do the labs on 04/30/2024, she is here for her MWV also OV 07/15/2024: Here for her f/u apt, she is doing well today, she did stop her statin d/t LFT elevation, she has a cyst on the L lower cheek OV 01/13/2025: Here for her f/u apt, she is doing well today, multiple issues, see A/P section Barb Doss MD [address] [facility], [address], [place], [address], [place] - [facility] 01/13/2025 14:05:07 OBGyn Episode No OBEpisode recorded.
--- OUTSIDE RECORDS SUMMARY | 2025-05-19 15:29 | XMS_ITS | Patient Health Record ---
Author Organization [facility] Address 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 Film Laboratory Technician Name Role Phone Selam THOMPSON, Jhonathan Primary Care Provider Un available TIFFANI DEGROOT, LAURENT Unavailable Allergies Allergen (clinical drug ingredient) Drug/Non Drug Allergy documented on EMR Reaction Allergy Type Onset Date Status Non-steroidal anti-inflammatory agent (FN) NSAIDs stomach pain Drug Allergy Active Substance with sulfonamide structure and antibacterial mechanism of action (substance) Sulfa Antibiotics itching Drug Allergy Active Reason For Referral No Information Medications Medication SIG (Take, Route, Frequency, Duration) Notes Start Date End Date Status Ursodiol 300 MG 1 capsule Orally Twi ce a day for 30 day(s) 03/05/2024 Active Calcium 500 MG 1 tablet with meals Orally Twice a day Active Multivitamin Active oxyCODONE HCl 10 MG 1 tablet as needed Orally every 6 hrs Active Rosuvastatin Calcium 40 MG 1 tablet Oral ly Once a day Active Potassium Chloride CR 10 meq Active Metoprolol Succinate ER 100 MG 1 tablet Orally twice daily Active Ferrous Sulfate 325 (65 Fe) MG 1 tablet Orally daily Active Vitamin B 12 100 MCG as directed Orally Active Olmesartan Medoxomil-HCTZ 20-12.5 MG 1 tablet Orally Once a day Active Gabapentin 300 MG 1 capsule Orally thr ee times a day Active Encounters Encounter Location Date Provider Diagnosis [facility] [address] [place] [address] 06/29/2024 LAURENT NIXON Plan Of Treatment Pending Test Test Name Order Date Ceruloplasmin 02/06/2024 [id number], Serum 02/06/2024 CBC With Differential/Platelet Actin (Smooth Muscle) Antibody 4 Mitochondrial (M2) Antibody 02/06/2024 Liver-Kidney Microsomal Ab 02/06/2024 MARIA LUZ w/Reflex if Positive 02/06/2024 Comp. Metabolic Panel (14) 02/06/2024 Hepatitis Panel (4) 02/06/2024 Ultrasound : Abdomen, upper 02/06/2024 Liver Function Test (LFT) 03/30/2024 Liver Function Test (LFT) 06/29/2024 MRI : Abdomen with and without Contrast 03/08/2024 Insurance Providers Payer Name Payer Address Payer Phone Subscriber Number Group Number Insured Name Patient Relationship to Insured Coverage Start Date Coverage End Date [employer] H[employer]-POS [address] [address] [place] [address] [id number] Briseida Huff Self - patient is the insured Medical (General) History Medical History History ICD Code Arthritis anxiety hypertension hypercholesterolemia myocardial infarction hemorrhoids pancreatic cysts Surgical History Surgery Date(Month/Year) gastric bypass spinal fusion right knee replacement cholecystectomy carpal tunnel release breast augmentation hysterectomy appendectomy
== END 2025-05-19 15:26 | disposition home or self-care (01) ==
LOC: ANHIMG 15:26
PROVIDERS: PCP Internal Medicine; Visit Provider Internal Medicine
DX: Z12.31 Encounter for screening mammogram for malignant neoplasm of breast (principal)
CPT/HCPCS: 77063; 77067

== ENCOUNTER 2025-07-19 10:51 | Outpatient (CLI) | payer MEDICARE, SELFPAY ==
--- NOTE | ~2025-07-19 | DEXA_ITS ---
Bone Density Report Name: DIANNA SHERMAN Age: 65 Sex: Female Ethnicity: White Date of : 1960 Indication: postmenopausal; screening for osteoporosis; height loss; prior fracture; hysterectomy; rheumatoid arthritis; Referring Provider: Selam, Jhonathan Study: Bone densitometry was performed. Exam Date: July 19, 2025 Accession number: [id number] Bone Density: Region BMD T-score Z-score Classification AP Spine(L1, L2) 1.380 3.6 5.3 Normal Femoral Neck (Right) 0.645 -1.8 -0.4 Osteopenia Total Hip (Right) 0.734 -1.7 -0.5 Osteopenia World Health Organization criteria for BMD impression classify patients as: Normal (T-score at or above -1.0), Osteopenia (T-score between -1.0 and -2.5), or Osteoporosis (T-score at or below -2.5). 10-year Fracture Risk: FRAX not reported because: Prior hip or vertebral fracture Clinical Information Provided by Patient: Have had a previous hip or vertebral fracture Has had a low trauma fracture Has rheumatoid arthritis Has used the following medications: Vitamin D, Calcium Has the following medical conditions: Hysterectomy Patient maximum height was 61.5 Menopause Age: 31 No regular weight bearing exercise Does not regularly consume dairy products Drinks caffeinated beverages Onset of menses at age 13 Number of children 2 Missed period for more than 6 months in a row Impression: The patient has low bone mass, based on the Right Femoral Neck T-score. The patient has risk factors, including: previous fracture. Discussion: INCREASED RISK OF FRACTURE DUE TO HISTORY OF FRACTURE. The patient's previous fracture puts the patient at high risk of a future fracture. In untreated patients, the risk of osteoporotic fracture increases approximately two-fold for each 1.0 SD decrease in T-score. Low bone density is not the only risk factor for fracture; also consider factors such as patient's age, frailty or poor health, risk of falling, risk of injury, previous osteoporotic fracture, family history of osteoporosis, cigarette smoking, low body weight, etc. Not everyone with a low trauma fracture has osteoporosis; osteomalacia and other metabolic bone disorders should also be considered. Patients who have osteoporosis should be evaluated for specific diseases and conditions (secondary causes) that may cause or contribute to bone loss and fracture risk. National Osteoporosis Foundation (NOF) recommends pharmacologic intervention for patients with a prior hip or vertebral fracture regardless of BMD T-score. The patient should follow a healthful lifestyle (good nutrition with adequate calcium and vitamin D, and appropriate weight-bearing exercise). Follow-Up: Consider a repeat BMD and Vertebral Fracture Assessment (VFA) exam in 2 years or sooner if medically necessary, to reassess this patient's status. Reported by: ELOISE on 07/19/2025 1:53:00 PM. Reviewed, dictated and finalized at location A.
== END 2025-07-19 10:52 | disposition home or self-care (01) ==
PROVIDERS: PCP Internal Medicine; Visit Provider Internal Medicine
DX: M85.89 Other specified disorders of bone density and structure, multiple sites (principal); Z78.0 Asymptomatic menopausal state
CPT/HCPCS: 77080